=== PATIENT | male | born 1930 | race Caucasian/White ===

== ENCOUNTER 2019-02-05 20:44 | Inpatient (IN) | payer MEDICARE, BC ==
--- NOTE | 2019-02-05 20:55 | EDM.PDOC ---
ED HPI GENERAL MEDICAL PROBLEM - General Chief Complaint: Genitourinary Problem Stated Complaint: HEMATURIA Time Seen by Provider: 02/05/19 20:44 Source of Information: Reports: Patient History Limitations: Reports: No Limitations - History of Present Illness INITIAL COMMENTS - FREE TEXT/NARRATIVE: 88 YO WM presents to ER with urinary retention which began this am. Pt and his reports hematuria x 3 days. Pt was seen in clinic and started on antibiotics but hematuria continued throughout the day and patient reports he hasn't been able to void since 4pm today. Pt reports he is taking Plavix secondary to cardiac cath with 2 stents 6 weeks ago. Pt denies shortness of breath, dizziness or fatigue related to blood loss. Pt with history of diabetes but unsure of renal function status at this time. Duration: Day(s): (3) Location: Reports: Abdomen Quality: Reports: Pressure Severity: Mild Improves with: Reports: None Worsens with: Reports: None Associated Symptoms: Reports: No Other Symptoms - Related Data Allergies Allergy/AdvReac Type Severity Reaction Status Date / Time No Known Drug Allergies Allergy Other Verified 12/29/13 17:55 Home Meds: Home Meds Aspirin [Halfprin] 81 mg PO DAILY 11/29/13 [History] Fish Oil/[place]-3 Fatty Acids [Fish Oil] 1 cap PO DAILY 11/29/13 [History] Furosemide [Lasix] 20 mg PO DAILY 11/29/13 [History] Glucosamine HCl [Glucosamine] 1,500 mg PO DAILY 11/29/13 [History] Losartan/Hydrochlorothiazide [Losartan-HCTZ 50-12.5 MG] 50.125 mg PO DAILY 11/29 [History] Multivitamin with Minerals [One Daily 50 Plus] 1 tab PO DAILY 11/29/13 [History] Past Medical History - Past Health History Medical/Surgical History: Denies Medical/Surgical History Social & Family History - Living Situation & Occupation Living situation: Reports: Occupation: Retired ED ROS GENERAL - Review of Systems Review Of Systems: See Below Constitutional: Reports: No Symptoms HEENT: Reports: No Symptoms Respiratory: Reports: No Symptoms Cardiovascular: Reports: No Symptoms Endocrine: Reports: No Symptoms GI/Abdominal: Reports: No Symptoms : Reports: Hematuria, Urgency, Urinary Retention Musculoskeletal: Reports: No Symptoms Skin: Reports: No Symptoms Neurological: Reports: No Symptoms Psychiatric: Reports: No Symptoms Hematologic/Lymphatic: Reports: No Symptoms Immunologic: Reports: No Symptoms ED EXAM, RENAL/ - Physical Exam Exam: See Below Exam Limited By: No Limitations General Appearance: Alert, WD/WN, No Apparent Distress Head: Atraumatic, Normocephalic Neck: Normal Inspection, Supple, Non-Tender, Full Range of Motion Respiratory/Chest: No Respiratory Distress, Lungs Clear, Normal Breath Sounds, No Accessory Muscle Use, Chest Non-Tender Cardiovascular: Normal Peripheral Pulses, Regular Rate, Rhythm, No Edema, No Gallop, No JVD, No Murmur, No Rub GI/Abdominal: Normal Bowel Sounds, Soft, Non-Tender, No Organomegaly, No Distention, No Abnormal Bruit, No Mass Back Exam: Normal Inspection, Full Range of Motion, NT Extremities: Normal Inspection, Normal Range of Motion, Non-Tender, Normal Capillary Refill, No Pedal Edema Neurological: Alert, Oriented, CN II-XII Intact, Normal Cognition, Normal Reflexes, No Motor/Sensory Deficits Psychiatric: Normal Affect, Normal Mood Skin Exam: Warm, Dry, Intact, Normal Color, No Rash Lymphatic: No Adenopathy Course - Orders/Labs/Meds Orders: Active Orders 24 hr Category Date Time Status Insert Urinary Catheter [OM.PC] Q24H Care 02/05/19 21:00 Ordered Urinary Catheter Assessment [RC] ASDIRECTED Care 02/05/19 20:56 Active Labs: Laboratory Tests 02/05/19 02/05/19 02/05/19 Range/Units 21:27 21:30 21:30 WBC 3.98 L (5.00-10.00) 10^3/uL RBC 2.85 L (4.50-6.00) 10^6/uL Hgb 9.6 L (13.0-17.0) g/dL Hct 28.2 L (40.0-52.0) % MCV 98.9 H (82.0-92.0) fL MCH 33.7 H (27.0-31.0) pg MCHC 34.0 (32.0-36.0) g/dL RDW 13.3 (11.5-14.5) % Plt Count 148 L (150-400) 10^3/uL MPV 9.7 (7.4-10.4) fL Immature Gran % (Auto) 0.5 (0.0-5.0) % Neut % (Auto) 65.3 (50.0-70.0) % Lymph % (Auto) 18.1 L (20.0-40.0) % Gage % (Auto) 9.5 H (2.0-8.0) % Eos % (Auto) 5.8 H (1.0-3.0) % Baso % (Auto) 0.8 (0.0-1.0) % Immature Gran # (Auto) 0.02 (0.00-0.50) 10^3/uL Neut # (Auto) 2.60 (2.50-7.00) 10^3/uL Lymph # (Auto) 0.72 L (1.00-4.00) 10^3/uL Gage # (Auto) 0.38 (0.10-0.80) 10^3/uL Eos # (Auto) 0.23 (0.10-0.30) 10^3/uL Baso # (Auto) 0.03 (0.00-0.10) 10^3/uL Sodium 142 (136-145) mmol/L Potassium 4.7 (3.3-5.3) mmol/L Chloride 108 (98-115) mmol/L Carbon Dioxide 21.5 (21.0-32.0) mmol/L Anion Gap 17.2 H (5-15) mmol/L BUN 60 H* (6-25) mg/dL Creatinine 2.70 H (0.51-1.17) mg/dL Est Cr Clr Drug Dosing TNP Estimated GFR (MDRD) 22 mL/min Glucose 172 H (75 - 99) mg/dL Calcium 9.3 (8.7-10.3) mg/dL Specimen Type Urincath Urine Color Red H (YELLOW) Urine Appearance Turbid H (CLEAR) Urine pH 6.0 (5.0-9.0) Ur Specific [place] 1.025 (1.005-1.030) Urine Protein >=300 H (NEGATIVE) mg/dL Urine Glucose (UA) Negative (NEGATIVE) mg/dL Urine Ketones Negative (NEGATIVE) mg/dL Urine Occult Blood Large H (NEGATIVE) Urine Nitrite Negative (NEGATIVE) Urine Bilirubin Negative (NEGATIVE) Urine Urobilinogen 0.2 (0.2-1.0) E.U./dL Ur Leukocyte Esterase Negative (NEGATIVE) Urine RBC Packed (0-5) /HPF Urine WBC 0-5 (0-5) /HPF Ur Epithelial Cells Not seen /LPF Urine Bacteria Few (NONE TO FEW) /HPF Departure - Departure Time of Disposition: 22:10 Disposition: Admitted As Inpatient 66 Condition: Good Clinical Impression: Obstructive uropathy, Renal insufficiency Hematuria Qualifiers: Hematuria type: gross Qualified Code(s): R31.0 - Gross hematuria Anemia Qualifiers: Anemia type: unspecified type Qualified Code(s): D64.9 - Anemia, unspecified - Discharge Information Referrals: Lizett Brush, MANUFACTURING QUALITY MANAGER [Primary Care Provider] - Forms: ED Department Discharge - My Orders Last 24 Hours: My Active Orders 02/05/19 20:56 Urinary Catheter Assessment [RC] ASDIRECTED 02/05/19 21:00 Insert Urinary Catheter [OM.PC] Q24H - Assessment/Plan Last 24 Hours: My Active Orders 02/05/19 20:56 Urinary Catheter Assessment [RC] ASDIRECTED 02/05/19 21:00 Insert Urinary Catheter [OM.PC] Q24H Assessment:: 1. Hematuria- obstructive uropathy 2. renal insufficiency 3. Anemia Plan: 1. Admit to [facility] 2. continue bladder irrigation 3. NS @ 100cc/hr 4. repeat labs in am
[2019-02-05 21:58] LABS: ANION GAP 17.2 mmol/L (5-15); CHLORIDE,CL 108 mmol/L (98-115); SODIUM,NA 142 mmol/L (136-145)
[2019-02-05] MEDS: Sodium Chloride 0.9% 10 ML Syringe FLUSH PRN (23:10)
[2019-02-05] MEDS: Sodium Chloride 0.9% 1,000 ML IV SCH (23:12)
[2019-02-06 08:01] LABS: ANION GAP 18.1 mmol/L (5-15)
[2019-02-06] MEDS: Sodium Chloride 0.9% 1,000 ML IV SCH (09:11)
[2019-02-06] MEDS ORDERED: INSULIN DEGLUDEC 18 UNIT SQ SCH (10:15)
[2019-02-06] MEDS ORDERED: BILBERRY PO SCH (10:15)
[2019-02-06] MEDS: Aspirin 81 MG Tab.EC PO SCH (10:40)
[2019-02-06] MEDS ORDERED: Furosemide 40 MG Tab PO ONE (11:30)
[2019-02-06] MEDS: Metoprolol Succinate 50 MG Tab.ER PO SCH (11:33)
[2019-02-06] MEDS: Clopidogrel 75 MG Tab PO SCH (11:33)
[2019-02-06] MEDS: Calcitriol 0.25 MCG Cap PO SCH (11:33)
[2019-02-06] MEDS: Metoprolol Succinate 25 MG Tab.ER PO SCH (11:34)
[2019-02-06] MEDS: Lutein/Minerals/Vitamins A, C & E Tab PO SCH (11:34)
[2019-02-06] MEDS: Allopurinol 100 MG Tab PO SCH (11:35)
[2019-02-06] MEDS: Finasteride 5 MG Tab PO SCH (11:35)
[2019-02-06] MEDS ORDERED: Belladonna Alkaloids/Opium 16.2-60 MG Supp RECTAL PRN (11:52)
[2019-02-06] MEDS: atorvaSTATin 10 MG Tab PO SCH (20:15)
[2019-02-07] MEDS: Sodium Chloride 0.9% 1,000 ML IV SCH ×2 (02:32→22:22)
[2019-02-07] MEDS: Calcitriol 0.25 MCG Cap PO SCH (08:46)
[2019-02-07] MEDS: Clopidogrel 75 MG Tab PO SCH (08:46)
[2019-02-07] MEDS: Allopurinol 100 MG Tab PO SCH (08:47)
[2019-02-07] MEDS: Metoprolol Succinate 25 MG Tab.ER PO SCH (08:47)
[2019-02-07] MEDS: Lutein/Minerals/Vitamins A, C & E Tab PO SCH (08:47)
[2019-02-07] MEDS: Metoprolol Succinate 50 MG Tab.ER PO SCH (08:48)
[2019-02-07] MEDS: Finasteride 5 MG Tab PO SCH (08:48)
[2019-02-07] MEDS: INSULIN DEGLUDEC 200 UNIT/ML SUBCUT SCH (08:57)
[2019-02-07] MEDS: Furosemide 20 MG Tab PO SCH (09:01)
[2019-02-07] MEDS: Sodium Chloride 0.9% 10 ML Syringe FLUSH PRN (09:02)
--- NOTE | 2019-02-07 09:08 | HP ---
HISTORY OF PRESENT ILLNESS: This is an 88-year-old patient who had an open heart surgery of a CABG back [address] Yasmeen Bustillo for CABG x3. 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 Recently, he had seen Dr. Geiger and had 3 cardiac stents placed to his heart back on 01/05. The patient was placed on Plavix and a baby aspirin at that time. The patient also does have a history of hematuria. He had seen Dr. Abdulkadir Henry in Urology back this past March. At that time, the patient was started on finasteride 5 mg daily, which stopped his hematuria. Recently, the patient has been having hematuria since he has been put on the blood thinners. He was seen in the clinic. Cardiology was notified. Cardiology said that we may stop the aspirin if the bleeding gets to be uncontrollable, but do not stop the Plavix. Urology was also consulted at that time. Over the weekend, the patient was having gross hematuria. Finally, he got to the point where he is getting clots and he could not urinate, it became very painful with bladder pressure and he came to the emergency room. At that time, a 3-way 22-[place] catheter was inserted with CBI. PAST MEDICAL HISTORY: The patient does have a past medical history of hematuria, coronary artery disease with history of CABG x3 five years ago, hypertension, diabetes mellitus type 2, hyperlipidemia, and gout. PAST SURGICAL HISTORY: He had the open heart surgery along with cardiac stent. MEDICATIONS: He was taking at home, a multivitamin, Tresiba 18 units daily, aspirin was on hold. He does take allopurinol 100 mg daily, Plavix 75 mg once daily, Toprol-XL 75 mg daily, finasteride 5 mg daily, atorvastatin 10 mg daily, Lasix 60 mg every other day, and calcitriol 0.5 mg daily. ALLERGIES: The patient has no known drug allergies. SOCIAL/PERSONAL HISTORY: The patient lives in [place] with his . He is retired. Denies any alcohol or tobacco use. REVIEW OF SYSTEMS: CONSTITUTIONAL: No weight loss. No fever. No chills. No night sweats. Appetite is good. No fatigue. EYES: No recent visual changes. ENT: No sinus congestion or hoarseness. CARDIOVASCULAR: No chest pain or palpitations. RESPIRATORY: No cough. No shortness of breath. GI: No vomiting, diarrhea or melena. : The Metcalf catheter is irritating his penis. MUSCULOSKELETAL: No new bone pain or joint swelling. INTEGUMENTARY: No rash or pruritus. NEUROLOGIC/PSYCHIATRIC: No recent headache or focal weakness. No depressive symptoms. ENDOCRINE: No heat or cold intolerances or polydipsia. HEMATOLOGIC/LYMPHATIC: No excessive bruising or lymph node swelling. ALLERGIC/IMMUNOLOGIC: No hives or recurrent infections. PHYSICAL EXAMINATION: GENERAL: This is an elderly white male in no acute distress. VITAL SIGNS: Today, he is 207 pounds. Temperature is 97.0, pulse is 70, blood pressure is 159/81, respiratory rate is 20, oxygen saturation on room air is 96%. HEENT: Head is normocephalic. EOMs are intact. Pupils are equal, round, and reactive to light and accommodation. Bilateral tympanic membranes are intact. Nose is clear. No pharyngeal erythema noted. LUNGS: Sounds are clear throughout lung garg. Slightly diminished at bilateral bases. NECK: Supple. No JVD. Trachea midline. CARDIAC: Heart tones have a loud murmur, but it is regular rate and rhythm. ABDOMEN: Soft, nontender, nondistended. Bowel sounds are present x4. EXTREMITIES: No joint effusion noted. Full range of motion. NEUROLOGIC: Grossly intact. DIAGNOSTIC: The patient's lab work that was obtained. A CBC showed a white count normal range at 5.8, hemoglobin stable at 9.6, platelet count is within normal range at 156. Chemistry panel shows a BUN elevated at 55, creatinine is 2.59, GFR is 24. These are the lab work from today. The patient's lab work that was obtained in the ER did show a BUN elevated at 60, creatinine at 2.7. GFR is 22 at that time. IMPRESSION/PLAN: 1. Gross hematuria secondary to anticoagulation therapy. Plan: I did talk with Dr. Martinez on the phone, Urology at [facility] in [place]. He states that most of the time that these will stop bleeding on their own. He says usually going in for cystoscopy is not recommended unless he gets to be very uncontrolled. He says continue with the CBI. He says to hand irrigate the catheter, which I did with 1-2 L until there was no more clots. We do not have the ultrasound capabilities here for bladder ultrasound. We did bladder scan, the bladder after irrigation and it showed 0 mL present. We are going to continue to hold the aspirin at this time. We will continue with the Plavix 75 mg daily. We will also continue with finasteride 5 mg daily. It does seem like it is starting to clear up. We will continue to monitor. We will do a CBC in the morning. 2. Coronary artery disease with history of CABG along with recent stent placement on 01/[address] Geiger, stent placement x3. We are going to continue the Plavix 75 mg daily. The patient does not have any chest pain at this time. Note: Denies any shortness of breath, but we are holding the aspirin. 3. History of hypertension. Plan: We will continue with the Lasix 60 mg every other day along with the Toprol-XL 75 mg daily. The patient's blood pressure slightly elevated today. We will have to monitor. He did not get his medications yet today, so we will give him his medications and monitor his blood pressure from there. 4. History of diabetes mellitus type 2. Plan: We will continue with Tresiba 18 units daily and we will check his blood sugar twice daily. 5. History of hyperlipidemia. Plan: Continue with atorvastatin 10 mg daily. 6. History of gout. Plan: Continue with allopurinol 100 mg daily. OVERALL PLAN: We will continue with CBI. Hopefully, the bleeding slows down and stops, and at that time, we may consider sending the patient home. We will recheck lab work in the morning. /[id number]/MODL MTDD
--- NOTE | 2019-02-07 11:57 | PN ---
02/07/2019 PATIENT NAME: MARC WATTS SUBJECTIVE: This is an 88-year-old gentleman who lives at home with his who has a cardiac history of having CABG [address] Yasmeen Bustillo. The patient recently went in to get a heart valve repaired by Dr. Geiger and at that time, he ended up getting stents placed to his heart x3. This was back on 01/05/2019. The patient still has a malfunctioning cardiac valve that he needs repaired. The patient was placed on Plavix and aspirin after his stents were placed. The patient had a history of hematuria last March. He was seen by Urology for hematuria. He was placed on finasteride and at that time, the hematuria had stopped. After the patient went home with the Plavix and aspirin, he started getting hematuria about a week ago. Cardiology was consulted and he stated that if the bleeding gets to be more, then we can stop the aspirin, but do not continue the Plavix. The patient was at home over the weekend. He is unable to void because he is having such big blood clots in his urine. He was admitted to the hospital after being seen in the ER. He had a 22-[place] 3-way catheter inserted. I had spoke with Dr. Martinez in Urology and he states that this will mostly stop bleeding on its own. There is no intervention need be done at this time. CBI with irrigation for clots would be the treatment. Now today, the patient says he feels fine. He says he has no concerns. He is sitting and eating breakfast, watching TV. He has no discomfort; the only discomfort he says is when the Metcalf catheter pulled sometimes with transfers. OBJECTIVE: VITAL SIGNS: Today, temperature is 97.8, pulse is 71, blood pressure is 117/64, oxygen saturations are 95% on room air, the patient's respiratory rate is 20. GENERAL: This is an elderly white male in no acute distress. HEART: Tones are distant, but he does have a definite murmur on exam. LUNGS: Sounds are clear in upper lobes, diminished at the lower bases a little bit. ABDOMEN: Soft, nontender, nondistended. Bowel sounds present x4. : The patient's urine in the Metcalf bag is blood tinged, but I do not see any clots. CBI is infusing. EXTREMITIES: No pedal edema noted on exam. LABORATORY DATA: The patient's lab work today CBC shows white count within normal range of 5.6, hemoglobin is low at 8.9. Chemistry panel is unremarkable except for the patient's kidney function continues to be low. BUN is elevated at 53, creatinine is elevated at 2.7. His GFR is 22. This is around the patient's baseline. This is where he has been in stage 4 chronic kidney disease. The patient's albumin is low today at 2.63. IMPRESSION AND PLAN: 1. Gross hematuria secondary to anticoagulation therapy. Plan: After talking with Dr. Martinez yesterday, he states that they were doing pretty much everything we would be doing up there. He says we do not need to transfer him at this time. There is no intervention needed unless the patient was bleeding out very severely. Continue with CBI and irrigate for clots. This is what he recommended at this time, most likely he will stop bleeding even on the Plavix. Today, I do not see any blood clots in the bag. It seems to be a lot laboratory technician in color today than yesterday. The patient's hemoglobin seems to be dropping slightly, yesterday was 9.6, today it is 8.9. We will recheck a CBC in the morning. We will continue with Plavix and continue to hold aspirin at this time. 2. History of coronary artery disease with history of coronary artery bypass grafting 5 years ago with recent stent placement by Dr. Geiger back on 01/05/2019. Stent placement was x3. We will continue with Plavix 75 mg a day. We will continue to hold the aspirin until the bleeding is subsided. The patient denies any chest pain, shortness of breath, or heart palpitations. 3. History of hypertension. Plan: Blood pressure seems to be well controlled. We will continue with his Lasix 60 mg every day along with Toprol-XL 75 mg daily. 4. History of diabetes mellitus type 2. Plan: We will continue with Tresiba 18 units daily. We will continue to check his blood sugar twice daily. Glucose on his panel this morning was 107, yesterday before supper his blood sugar was 166. They seem to be well controlled. 5. History of hyperlipidemia. Plan: Continue with atorvastatin 10 mg daily. 6. History of gout. Plan: Continue with allopurinol 100 mg daily. Overall plan: we will continue with CBI. Hopefully, the bleeding slows down and stops. At that time, we can maybe send the patient home. We will check his lab work in the morning, seems to be improving. I do not see any further clots. The blood seems to be becoming less. /[id number]/MODL MTDD
[2019-02-07] MEDS: atorvaSTATin 10 MG Tab PO SCH (20:23)
[2019-02-08 07:51] LABS: ANION GAP 18.5 mmol/L (5-15)
[2019-02-08] MEDS: Finasteride 5 MG Tab PO SCH (08:27)
[2019-02-08] MEDS: Calcitriol 0.25 MCG Cap PO SCH (08:28)
[2019-02-08] MEDS: Allopurinol 100 MG Tab PO SCH (08:28)
[2019-02-08] MEDS: Clopidogrel 75 MG Tab PO SCH (08:28)
[2019-02-08] MEDS: Lutein/Minerals/Vitamins A, C & E Tab PO SCH (08:29)
[2019-02-08] MEDS: Furosemide 40 MG Tab PO SCH (08:30)
[2019-02-08] MEDS: Metoprolol Succinate 50 MG Tab.ER PO SCH (08:30)
[2019-02-08] MEDS: Metoprolol Succinate 25 MG Tab.ER PO SCH (08:34)
[2019-02-08] MEDS: INSULIN DEGLUDEC 200 UNIT/ML SUBCUT SCH (08:37)
--- NOTE | 2019-02-08 12:23 | PN ---
02/08/2019 PATIENT NAME: MARC WATTS CHIEF COMPLAINT: Ongoing hematuria. BRIEF HISTORY: This 88-year-old gentleman is in the hospital, acute stay due to ongoing hematuria. He is status post stent placement, was placed on aspirin and Plavix. Also on finasteride. He came to the ED due to obstructive uropathy. He was subsequently admitted due to hematuria. He has been in the hospital for continued bladder irrigation. Over the weekend, he did have CBI ongoing. A lot clots were removed by the weekend provider. He had been having clear urine. However, this morning, he does have some hematuria, however, no clots, got stable hemoglobin 8.9. No dizziness. No chest pain, slightly pallor. His aspirin was removed. Today is day #3. After removed, continues with Plavix. On-call provider had discussed case with Urology. Recommend a CBI and possible transfusion if need be and if he become hemodynamically stable. SUBJECTIVE: The patient is sitting in a chair. Alert and oriented. No chest pain, shortness of breath. PHYSICAL EXAMINATION: VITAL SIGNS: Stable. Blood pressure 114/63, afebrile, O2 saturations 96%. He has no other complaints other than hematuria. HEART: Does have a murmur 3/6. PULMONARY: Clear. LUNGS: No wheezes or rales or rhonchi. INTEGUMENTARY: Pallor. ABDOMEN: Soft, nontender. Good bowel tones. : Ongoing Metcalf. Blood tinged urine. Slightly tea-colored today. No clots. CBI is ongoing infusion. Does have IV running at 50 mL an hour. EXTREMITIES: No pedal edema. LABORATORY DATA: Hemoglobin 8.9, same as yesterday. White blood cells 5.79. Neutrophilia trending down at 94%. BUN 52, creatinine 2.77. Potassium and sodium normal, albumin 2.62. IMPRESSION/PLAN: 1. Hematuria secondary to dual anti-platelet continue. Continue CBI today. We will see if he develops clots. Monitor for any hemodynamically instability. Monitor hemoglobin in the a.m. We will be in close contact with Urology. Continue ongoing Plavix. 2. Coronary artery disease with bypass 5 years ago, recent status post stent on 01/05/2019. Aspirin is being held. Plavix 75 mg a day. 3. History of hypertension. Blood pressure seems good. Stable. Adequate MAPs. Continue with Lasix and Toprol. 4. T2 DM control with Tresiba 18 units. 5. Hyperlipidemia, on statin therapy. 6. Gout. Continue with allopurinol. DISPOSITION/OVERALL PLAN: Continue inpatient stay. Continue CBI today. Monitor for clots. Monitor for hemodynamic instability. We will see how he does with this. Will be in close contact with Urology. /[id number]/MODL
[2019-02-08] MEDS ORDERED: Melatonin 3 MG Tab PO PRN (20:13)
[2019-02-08] MEDS: atorvaSTATin 10 MG Tab PO SCH (20:18)
[2019-02-08] MEDS ORDERED: Acetaminophen 325 MG Tab PO PRN (20:20)
[2019-02-09 07:50] LABS: ANION GAP 19.5 mmol/L (5-15)
[2019-02-09] MEDS: Metoprolol Succinate 50 MG Tab.ER PO SCH (08:31)
[2019-02-09] MEDS: Calcitriol 0.25 MCG Cap PO SCH (08:31)
[2019-02-09] MEDS: Allopurinol 100 MG Tab PO SCH (08:31)
[2019-02-09] MEDS: Metoprolol Succinate 25 MG Tab.ER PO SCH (08:31)
[2019-02-09] MEDS: INSULIN DEGLUDEC 200 UNIT/ML SUBCUT SCH (08:32)
[2019-02-09] MEDS: Clopidogrel 75 MG Tab PO SCH (08:32)
[2019-02-09] MEDS: Finasteride 5 MG Tab PO SCH (08:32)
[2019-02-09] MEDS: Lutein/Minerals/Vitamins A, C & E Tab PO SCH (08:32)
[2019-02-09] MEDS: Furosemide 20 MG Tab PO SCH (08:34)
--- NOTE | 2019-02-09 15:38 | PN ---
02/09/2019 PATIENT NAME: MARC WATTS CHIEF COMPLAINT: Ongoing, however, improving hematuria. DICTATION ENDS HERE /[id number]/MODL
--- NOTE | 2019-02-09 16:59 | PN ---
02/09/2019 PATIENT NAME: MARC WATTS CHIEF COMPLAINT: Ongoing but improving hematuria. No overnight calls. However, this morning upon arrival to the hospital, I did get notified by the nurses with acute urinary obstruction. He did have a CBI that was running overnight and the past couple of days, and then the nurses were concerned that he was having no urinary output. I did ask for the 3-way CBI to be removed and a 22-gauge placed. However, by the time I got to the hospital, the CBI was draining appropriately intake and output. HISTORY: 88-year-old gentleman, recently had status post stents were placed. He was on aspirin and Plavix, dual anti-platelet therapy. He did have some active bleeding hematuria with quite a bit of blood clots, unable to urinate. A 3-way catheter was placed in the ED with CBI ongoing. He has been having periodic hematuria versus clearing. Hemoglobin has been stable at 8.9. His Plavix continues due to stents, however, that has been held. Today is day 4 of aspirin being held. SUBJECTIVE: Denies chest pains, dizziness, or any nausea, vomiting, or diarrhea. PHYSICAL EXAMINATION: VITAL SIGNS: Blood pressure 120/69, heart rate 62, temperature 97.3, O2 sats 97%, respiratory rate 16. LUNGS: Clear to auscultation. CV: Slightly irregular. ABDOMEN: Soft with good GI tones. EXTREMITIES: Slightly pallor, however, stable hemoglobin. LABORATORY DATA: This morning, hemoglobin 8.7, BUN is 60, creatinine 3.09 with a GFR of 20; this is slightly elevated than yesterday. Potassium is 4.5, sodium 143. Bilirubin, AST, and ALT normal. IMPRESSION AND PLAN: 1. Hematuria secondary to hkrd-[id number]-[id number] therapy. His aspirin has been stopped. He does have an increasing favorable platelet count. We will discontinue Metcalf catheter this morning. Increase his IV fluids. 2. Coronary artery disease with bypass 5 years ago, recent stent placed on 01/05/2019. Again, aspirin is being held. Plavix, we will continue at 75 mg a day. 3. History of hypertension. Blood pressure is stable. Adequate mean arterial pressures. He is on Toprol at this time. 4. Type 2 diabetes mellitus. He is on Tresiba. He does have a blood sugar this morning of 72 without symptoms. We will decrease his Tresiba to 16 units. 5. Hyperlipidemia. He is on statin therapy. 6. Gout. Continue with renal dose allopurinol. DISPOSITION/OVERALL PLAN: I thought at one point the patient could likely be discharged this evening, however, might be best to keep him one more day in the hospital due to recent discontinuation of CBI and catheter. Then, increase his IV fluids, monitor for any fluid overload, monitor for creatinine improvement. Hopefully, he can get near his baseline in the morning, and we will monitor for any obstructive uropathy. Please note that the hospital's bladder scan is broken, so we may have to call an ultrasound if we have any symptoms of urinary obstruction. We will be close monitoring him throughout the night. Likely anticipate discharge tomorrow. Monitor for hemoglobin in the morning. /[id number]/MODL
[2019-02-09] MEDS: Sodium Chloride 0.9% 1,000 ML IV SCH (20:04)
[2019-02-09] MEDS: atorvaSTATin 10 MG Tab PO SCH (20:05)
[2019-02-10] MEDS: Sodium Chloride 0.9% 1,000 ML IV SCH (04:12)
[2019-02-10 07:46] LABS: ANION GAP 17.2 mmol/L (5-15)
[2019-02-10] MEDS: Lutein/Minerals/Vitamins A, C & E Tab PO SCH (08:56)
[2019-02-10] MEDS: Finasteride 5 MG Tab PO SCH (08:56)
[2019-02-10] MEDS: Calcitriol 0.25 MCG Cap PO SCH (08:56)
[2019-02-10] MEDS: Clopidogrel 75 MG Tab PO SCH (08:56)
[2019-02-10] MEDS: Metoprolol Succinate 25 MG Tab.ER PO SCH (08:57)
[2019-02-10] MEDS: Metoprolol Succinate 50 MG Tab.ER PO SCH (08:57)
[2019-02-10] MEDS: Allopurinol 100 MG Tab PO SCH (08:58)
[2019-02-10] MEDS ORDERED: TRESIBA 200 UNIT/ML SUBCUT SCH ×2 (09:00→09:50)
[2019-02-10] MEDS: Furosemide 40 MG Tab PO SCH (09:02)
[2019-02-10] MEDS: Aspirin 81 MG Tab.EC PO SCH (09:44)
== END 2019-02-10 11:25 | disposition home or self-care (01) | DRG 696 ==
LOC: KA.ED 20:44 → KA.MS 22:13 → UNDOADMIN 22:15 → KA.MS 22:15
PROVIDERS: ADMIT Physician Assistant Medical; ATTEND Physician Assistant
PROC: 0T9B70Z Drainage of Bladder with Drainage Device, Via Natural or Artificial Opening (ICD-10-PCS; principal; 2019-02-05)
DX: R31.0 Gross hematuria (principal); D68.32 Hemorrhagic disorder due to extrinsic circulating anticoagulants; D64.9 Anemia, unspecified; T45.515A Adverse effect of anticoagulants, initial encounter; N13.9 Obstructive and reflux uropathy, unspecified; I25.10 Atherosclerotic heart disease of native coronary artery without angina pectoris; I10 Essential (primary) hypertension; E11.9 Type 2 diabetes mellitus without complications; Z79.02 Long term (current) use of antithrombotics/antiplatelets; E78.5 Hyperlipidemia, unspecified; M10.9 Gout, unspecified; Z95.1 Presence of aortocoronary bypass graft; Z95.5 Presence of coronary angioplasty implant and graft; Z79.82 Long term (current) use of aspirin; Z79.899 Other long term (current) drug therapy
CPT/HCPCS: 36415; 51702; 51703; 80048; 80053; 81001; 82962; 85018; 85025; 85027; 99284; 99284-25; A9270-GY; J7030

== ENCOUNTER 2020-01-24 13:48 | Emergency (ER) | payer MEDICARE, BC ==
--- NOTE | 2020-01-24 14:28 | EDM.PDOC ---
ED HPI GENERAL MEDICAL PROBLEM - General Chief Complaint: Genitourinary Problem Stated Complaint: URINARY RETENTION Time Seen by Provider: 01/24/20 14:20 Source of Information: Reports: Patient, Family History Limitations: Reports: No Limitations - History of Present Illness INITIAL COMMENTS - FREE TEXT/NARRATIVE: 89 YO WM PRESENTS TO ER COMPLAINING OF HEMATURIA YESTERDAY AND INABILITY TO VOID TODAY PROMPTING ER EVALUATION. PT REPORTS PASSING A BLOOD CLOT IN HIS URINE THIS AM BUT SINCE 8AM HE HAS BEEN UNABLE TO VOID ANY URINE. PT REPORTS SIMILAR HISTORY 1 YEAR AGO AT WHICH TIME HE WAS ADMITTED TO THE HOSPITAL DUE TO RENAL INSUFFICIENCY AND UTI. PT DENIES FEVER/CHILLS, NO N/V. PT REPORTS MILD LOWER ABDOMINAL/SUPRAPUBIC PAIN BUT DOES NOT APPEAR TO BE IN ANY DISTRESS. Onset: Today Onset Date: 01/24/20 Onset Time: 08:00 Location: Reports: Abdomen Quality: Reports: Ache Severity: Moderate Improves with: Reports: None Worsens with: Reports: None Associated Symptoms: Reports: No Other Symptoms. Denies: Fever/Chills, Nausea/Vomiting, Weakness - Related Data Allergies Allergy/AdvReac Type Severity Reaction Status Date / Time No Known Drug Allergies Allergy Other Verified 01/24/20 14:29 Home Meds: Home Meds Bilberry 100 mg PO DAILY 02/06/19 [History] Clopidogrel [Plavix] 75 mg PO DAILY 02/06/19 [History] Finasteride [Proscar] 5 mg PO DAILY 02/06/19 [History] Metoprolol Succinate [Toprol XL 50mg] 50 mg PO DAILY 02/06/19 [History] Metoprolol Succinate [Toprol XL] 25 mg PO DAILY 02/06/19 [History] Multivit with Minerals/Lutein [Vision Plus Lutein Vitamin] 1 each PO DAILY 02/06/19 [History] allopurinoL [Zyloprim] 100 mg PO DAILY 02/06/19 [History] atorvaSTATin [Lipitor] 10 mg PO Q48H 02/06/19 [History] calcitrioL [Rocaltrol] 0.5 mcg PO DAILY 02/06/19 [History] Bumetanide [Bumex] 1 mg PO DAILY 01/24/20 [History] Insulin Degludec [Tresiba] 20 unit SQ DAILY 01/24/20 [History] Lancets [Microlet] 1 each MC DAILY 01/24/20 [History] Levothyroxine 25 mcg PO ACBREAKFAST 01/24/20 [History] Past Medical History - Past Health History Medical/Surgical History: Denies Medical/Surgical History HEENT History: Reports: Hard of Hearing, Impaired Vision, Macular Degeneration Cardiovascular History: Reports: Bypass, Stents Respiratory History: Reports: None Gastrointestinal History: Reports: None Genitourinary History: Reports: Chronic Renal Insuffiency Musculoskeletal History: Reports: Arthritis, Gout Neurological History: Reports: None Psychiatric History: Reports: None Endocrine/Metabolic History: Reports: Diabetes, Type II, Obesity/BMI 30+ Hematologic History: Reports: Anemia, Anticoagulation Therapy Immunologic History: Reports: None Oncologic (Cancer) History: Reports: Malignant Melanoma Dermatologic History: Reports: Melanoma - Infectious Disease History Infectious Disease History: Reports: None - Past Surgical History Head Surgeries/Procedures: Reports: None Cardiovascular Surgical History: Reports: Coronary Artery Bypass, Other (See Below) Other Cardiovascular Surgeries/Procedures: 3 stents done Jan 05, 2019 in [place] [facility] Surgical History: Reports: Colonoscopy Male Surgical History: Reports: None Endocrine Surgical History: Reports: None Neurological Surgical History: Reports: Lumbar Spine Musculoskeletal Surgical History: Reports: Knee Replacement, Shoulder Surgery, Other (See Below) Other Musculoskeletal Surgeries/Procedures:: Back surgery (bone grafting from right leg) in 1949 Social & Family History - Family History Family Medical History: Noncontributory - Caffeine Use Caffeine Use: Reports: Coffee Other Caffeine Use: very little - Living Situation & Occupation Living situation: Reports: Occupation: Retired ED ROS GENERAL - Review of Systems Review Of Systems: See Below Constitutional: Reports: No Symptoms HEENT: Reports: No Symptoms Respiratory: Reports: No Symptoms Cardiovascular: Reports: No Symptoms Endocrine: Reports: No Symptoms GI/Abdominal: Reports: Abdominal Pain : Reports: Hematuria, Urinary Retention Musculoskeletal: Reports: No Symptoms Skin: Reports: No Symptoms Neurological: Reports: No Symptoms Psychiatric: Reports: No Symptoms Hematologic/Lymphatic: Reports: No Symptoms Immunologic: Reports: No Symptoms ED EXAM, RENAL/ - Physical Exam Exam: See Below Exam Limited By: No Limitations General Appearance: Alert, WD/WN, No Apparent Distress Head: Atraumatic, Normocephalic Neck: Normal Inspection, Supple, Non-Tender, Full Range of Motion Respiratory/Chest: No Respiratory Distress, Lungs Clear, Normal Breath Sounds, No Accessory Muscle Use, Chest Non-Tender Cardiovascular: Normal Peripheral Pulses, Regular Rate, Rhythm, No Edema, No Gallop, No JVD, No Murmur, No Rub GI/Abdominal: Normal Bowel Sounds, Soft, Non-Tender, No Organomegaly, No Distention, No Abnormal Bruit, No Mass (Male) Exam: Normal Inspection, Circumcised Back Exam: Normal Inspection, Full Range of Motion, NT Extremities: Normal Inspection, Normal Range of Motion, Non-Tender, Normal Capillary Refill, No Pedal Edema Neurological: Alert, Oriented, CN II-XII Intact, Normal Cognition, Normal Gait, Normal Reflexes, No Motor/Sensory Deficits Psychiatric: Normal Affect, Normal Mood Skin Exam: Warm, Dry, Intact, Normal Color, No Rash Lymphatic: No Adenopathy Course - Vital Signs Last Recorded V/S: Last Vital Signs Temp 36.9 C 01/24/20 14:29 Pulse 79 01/24/20 14:29 Resp 16 01/24/20 14:29 BP 155/80 H 01/24/20 14:29 Pulse Ox 97 01/24/20 14:29 - Orders/Labs/Meds Orders: Active Orders 24 hr Category Date Time Status Insert Urinary Catheter [OM.PC] Q24H Care 01/24/20 14:30 Ordered Urinary Catheter Assessment [RC] ASDIRECTED Care 01/24/20 14:26 Active CORONAVIRUS COVID-19 RAPID [MOLEC] Stat Lab 01/24/20 15:35 Ordered UA W/MICROSCOPIC [URIN] Stat Lab 01/24/20 15:15 Results Labs: Laboratory Tests 01/24/20 01/24/20 01/24/20 Range/Units 14:45 14:45 15:15 WBC 4.49 L (5.00-10.00) 10^3/uL RBC 3.25 L (4.50-6.00) 10^6/uL Hgb 10.4 L D (13.0-17.0) g/dL Hct 31.3 L (40.0-52.0) % MCV 96.3 H (82.0-92.0) fL MCH 32.0 H (27.0-31.0) pg MCHC 33.2 (32.0-36.0) g/dL RDW 13.7 (11.5-14.5) % Plt Count 114 L (150-400) 10^3/uL MPV 10.4 (7.4-10.4) fL Immature Gran % (Auto) 0.2 (0.0-5.0) % Neut % (Auto) 69.5 (50.0-70.0) % Lymph % (Auto) 19.2 L (20.0-40.0) % [place] % (Auto) 7.1 (2.0-8.0) % Eos % (Auto) 3.3 H (1.0-3.0) % Baso % (Auto) 0.7 (0.0-1.0) % Neut # (Auto) 3.12 (2.50-7.00) 10^3/uL Lymph # (Auto) 0.86 L (1.00-4.00) 10^3/uL [place] # (Auto) 0.32 (0.10-0.80) 10^3/uL Eos # (Auto) 0.15 (0.10-0.30) 10^3/uL Baso # (Auto) 0.03 (0.00-0.10) 10^3/uL Immature Gran # (Auto) 0.01 (0.00-0.50) 10^3/uL Sodium 141 (136-145) mmol/L Potassium 4.7 (3.3-5.3) mmol/L Chloride 108 (98-115) mmol/L Carbon Dioxide 18.6 L (21.0-32.0) mmol/L Anion Gap 19.1 H (5-15) mmol/L BUN 83 H* (6-25) mg/dL Creatinine 3.26 H (0.51-1.17) mg/dL Est Cr Clr Drug Dosing 14.90 mL/min Estimated GFR (MDRD) 18 mL/min Glucose 208 H (75 - 99) mg/dL Calcium 8.8 (8.7-10.3) mg/dL Urine Color Red H (YELLOW) Urine Appearance Cloudy H (CLEAR) Urine pH 5.5 (5.0-9.0) Ur Specific [place] 1.015 (1.005-1.030) Urine Protein >=300 H (NEGATIVE) mg/dL Urine Glucose (UA) 100 H (NEGATIVE) mg/dL Urine Ketones 15 H (NEGATIVE) mg/dL Urine Occult Blood Large H (NEGATIVE) Urine Nitrite Positive H (NEGATIVE) Urine Bilirubin Large H (NEGATIVE) Urine Urobilinogen 4.0 H (0.2-1.0) E.U./dL Ur Leukocyte Esterase Large H (NEGATIVE) Meds: Medications Discontinued Medications Generic Name Dose Route Start Last Admin Trade Name Freq PRN Reason Stop Dose Admin Ceftriaxone Sodium 1 gm 01/24/20 15:28 Rocephin IM 01/24/20 15:29 ONETIME ONE Departure - Departure Time of Disposition: 15:46 Disposition: Admitted As Inpatient 67 Condition: Fair Clinical Impression: UTI, Urinary tract infectious disease, Renal insufficiency, Retention of urine Hematuria Qualifiers: Hematuria type: gross Qualified Code(s): R31.0 - Gross hematuria - Discharge Information Referrals: Jana Brush NP [Nurse Practitioner] - Forms: ED Department Discharge Sepsis Event Note (ED) - Focused Exam Vital Signs: Vital Signs Temp Pulse Resp BP Pulse Ox 01/24/20 14:29 36.9 C 79 16 155/80 H 97 - My Orders Last 24 Hours: My Active Orders 01/24/20 14:26 Urinary Catheter Assessment [RC] ASDIRECTED 01/24/20 14:30 Insert Urinary Catheter [OM.PC] Q24H 01/24/20 15:15 UA W/MICROSCOPIC [URIN] Stat 01/24/20 15:35 CORONAVIRUS COVID-19 RAPID [MOLEC] Stat - Assessment/Plan Last 24 Hours: My Active Orders 01/24/20 14:26 Urinary Catheter Assessment [RC] ASDIRECTED 01/24/20 14:30 Insert Urinary Catheter [OM.PC] Q24H 01/24/20 15:15 UA W/MICROSCOPIC [URIN] Stat 01/24/20 15:35 CORONAVIRUS COVID-19 RAPID [MOLEC] Stat Assessment:: 1. HEMATURIA WITH URINARY RETENTION 2. UTI 3. ACUTE ON CHRONIC RENAL INSUFFICIENCY Plan: 1. ADMIT TO MEDICINE- DR ROSALIA HERNANDEZ 2. ORDERS GIVEN PER DR LINDSEY 3. IVF NS @125CC/HR 4. CONTINUE MANUAL BLADDER IRRIGATION UNTIL CLEAR 5. REPEAT CBC/BMP IN AM 6. ROCEPHIN 1G IV QD 7. AWAIT URINE CULTURES
[2020-01-24 15:16] LABS: ANION GAP 19.1 mmol/L (5-15)
[2020-01-24] MEDS ORDERED: cefTRIAXone 1 GM Vial IM ONE (15:28)
[2020-01-24] MEDS ORDERED: cefTRIAXone 1 GM Vial IV ONE (16:00)
[2020-01-24] MEDS ORDERED: Sodium Chloride 0.9% 1,000 ML IV SCH (17:30)
== END 2020-01-24 18:20 ==
LOC: KA.ED 14:23 → UNDOADMIN 15:47 → KA.MS 15:47 → KA.ED 18:20
DX: N39.0 Urinary tract infection, site not specified (principal); R31.0 Gross hematuria; R33.9 Retention of urine, unspecified; E11.22 Type 2 diabetes mellitus with diabetic chronic kidney disease; N18.9 Chronic kidney disease, unspecified; E66.9 Obesity, unspecified; M10.9 Gout, unspecified; Z95.5 Presence of coronary angioplasty implant and graft; Z79.02 Long term (current) use of antithrombotics/antiplatelets; Z79.4 Long term (current) use of insulin; Z79.899 Other long term (current) drug therapy; Z68.31 Body mass index [BMI] 31.0-31.9, adult
CPT/HCPCS: 36415; 51702; 80048; 81001; 85025; 96361; 96374; 99285; J0696; J7030; U0002

== ENCOUNTER 2020-05-25 12:37 | Emergency (ER) | payer MEDICARE, BC ==
[2020-05-25] MEDS ORDERED: Sodium Chloride 0.9% 10 ML Syringe FLUSH PRN (12:40)
--- NOTE | 2020-05-25 13:09 | EDM.PDOC ---
ED HPI GENERAL MEDICAL PROBLEM - General Chief Complaint: General Stated Complaint: HEMATURIA Time Seen by Provider: 05/25/20 12:37 Source of Information: Reports: Patient History Limitations: Reports: No Limitations - History of Present Illness INITIAL COMMENTS - FREE TEXT/NARRATIVE: 89 YO WM PRESENTS TO ER BY PRIVATE CAR DUE TO WORSENING RENAL FUNCTION AND EPISODE OF HEMATURIA THIS AM. PT REPORTS HISTORY OF INOPERABLE RENAL MASS WITH RENAL INSUFFICIENCY WHICH ACCORDING TO HIS PCP, JEANNINE BRUSH HAS WORSENED RECENTLY. PT WAS SEEN IN CLINIC YESTERDAY FOR RASH AND HAD EVALUATION FOR UREMIA. CR- WENT FROM BASELINE OF 3.0-4.0 WITH A GFR OF 14. PT DENIES DYSURIA, URINARY FREQUENCY OR URGENCY, MAKING URINE WITHOUT DIFFICULTY BUT TODAY NOTICED 1 EPISODE OF HEMATURIA PROMPTING ER EVALUATION. PT DENIES PASSING ANY CLOTS IN URINE AND STATES HE HAS MACULAR DEGENERATION AND STATES HIS URINE WAS DARKER THAN NORMAL TODAY AND HE BELIEVES IT WAS BLOOD IN HIS URINE. PT DENIES SHORTNESS OF BREATH, PERIPHERAL EDEMA OR WORSENING FATIGUE OR WEAKNESS. Onset: Today Location: Reports: Generalized Severity: Mild Improves with: Reports: None Worsens with: Reports: None Associated Symptoms: Reports: No Other Symptoms, Rash. Denies: Confusion, Fever/Chills, Loss of Appetite, Malaise, Nausea/Vomiting, Shortness of Breath, Weakness - Related Data Allergies Allergy/AdvReac Type Severity Reaction Status Date / Time losartan Allergy Rash Verified 05/25/20 12:39 Home Meds: Home Meds Bilberry 100 mg PO DAILY 02/06/19 [History] Clopidogrel [Plavix] 75 mg PO DAILY 02/06/19 [History] Finasteride [Proscar] 5 mg PO DAILY 02/06/19 [History] Metoprolol Succinate [Toprol XL 50mg] 50 mg PO DAILY 02/06/19 [History] Metoprolol Succinate [Toprol XL] 25 mg PO DAILY 02/06/19 [History] Multivit with Minerals/Lutein [Vision Plus Lutein Vitamin] 1 each PO DAILY 02/06/19 [History] allopurinoL [Zyloprim] 100 mg PO DAILY@1800 02/06/19 [History] atorvaSTATin [Lipitor] 10 mg PO Q48H 02/06/19 [History] calcitrioL [Rocaltrol] 0.5 mcg PO DAILY 02/06/19 [History] Amoxicillin 2,000 mg PO ASDIRECTED 01/24/20 [History] Bumetanide [Bumex] 1 mg PO DAILY 01/24/20 [History] Insulin Degludec [Tresiba] 20 unit SQ DAILY 01/24/20 [History] Lancets [Microlet] 1 each MC DAILY 01/24/20 [History] Levothyroxine 25 mcg PO ACBREAKFAST 01/24/20 [History] Past Medical History - Past Health History Medical/Surgical History: Denies Medical/Surgical History HEENT History: Reports: Hard of Hearing, Impaired Vision, Macular Degeneration Cardiovascular History: Reports: Bypass, Stents, Other (See Below) Other Cardiovascular History: valve replaced 2018 Respiratory History: Reports: None Gastrointestinal History: Reports: None Genitourinary History: Reports: Chronic Renal Insuffiency, Other (See Below) Other Genitourinary History: similar issue last year requiring hospitalization Musculoskeletal History: Reports: Arthritis, Gout Neurological History: Reports: None Psychiatric History: Reports: None Endocrine/Metabolic History: Reports: Diabetes, Type II, Obesity/BMI 30+ Hematologic History: Reports: Anemia Immunologic History: Reports: None Oncologic (Cancer) History: Reports: Malignant Melanoma Dermatologic History: Reports: Melanoma - Infectious Disease History Infectious Disease History: Reports: Mumps, Pertussis (Whooping Cough) - Past Surgical History Head Surgeries/Procedures: Reports: None HEENT Surgical History: Reports: None Cardiovascular Surgical History: Reports: Coronary Artery Bypass, Valve Replacement, Other (See Below) Other Cardiovascular Surgeries/Procedures: 3 stents done Jan 05, 2019 in [place] Respiratory Surgical History: Reports: None GI Surgical History: Reports: Colonoscopy Male Surgical History: Reports: None Endocrine Surgical History: Reports: None Neurological Surgical History: Reports: Lumbar Spine Musculoskeletal Surgical History: Reports: Knee Replacement, Shoulder Surgery, Other (See Below) Other Musculoskeletal Surgeries/Procedures:: Back surgery (bone grafting from right leg) in 1949 Oncologic Surgical History: Reports: None Dermatological Surgical History: Reports: Skin Biopsy Social & Family History - Family History Family Medical History: No Pertinent Family History - Caffeine Use Caffeine Use: Reports: Coffee Other Caffeine Use: very little - Living Situation & Occupation Living situation: Reports: Occupation: Retired ED ROS GENERAL - Review of Systems Review Of Systems: See Below Constitutional: Reports: No Symptoms HEENT: Reports: No Symptoms Respiratory: Reports: No Symptoms Cardiovascular: Reports: No Symptoms Endocrine: Reports: No Symptoms GI/Abdominal: Reports: No Symptoms : Reports: Hematuria. Denies: Dysuria, Flank Pain, Frequency, Pain, Urinary Retention Musculoskeletal: Reports: No Symptoms Skin: Reports: Rash Neurological: Reports: No Symptoms Psychiatric: Reports: No Symptoms Hematologic/Lymphatic: Reports: No Symptoms Immunologic: Reports: No Symptoms ED EXAM, GENERAL - Physical Exam Exam: See Below Exam Limited By: No Limitations General Appearance: Alert, WD/WN, No Apparent Distress Head: Atraumatic, Normocephalic Neck: Normal Inspection, Supple, Non-Tender, Full Range of Motion Respiratory/Chest: No Respiratory Distress, Lungs Clear, Normal Breath Sounds, No Accessory Muscle Use, Chest Non-Tender Cardiovascular: Normal Peripheral Pulses, Regular Rate, Rhythm, No Edema, No Gallop, No JVD, No Murmur, No Rub GI/Abdominal: Normal Bowel Sounds, Soft, Non-Tender, No Organomegaly, No Distention, No Abnormal Bruit, No Mass Back Exam: Normal Inspection, Full Range of Motion, NT Extremities: Normal Inspection, Normal Range of Motion, Non-Tender, Normal Capillary Refill, No Pedal Edema Neurological: Alert, Oriented, CN II-XII Intact, Normal Cognition, Normal Gait, Normal Reflexes, No Motor/Sensory Deficits Psychiatric: Normal Affect, Normal Mood Course - Vital Signs Last Recorded V/S: Last Vital Signs Temp 98.3 F 05/25/20 12:40 Pulse 79 05/25/20 12:40 Resp 16 05/25/20 12:40 BP 145/73 H 05/25/20 12:40 Pulse Ox 98 05/25/20 12:40 - Orders/Labs/Meds Orders: Active Orders 24 hr Category Date Time Status Bladder Scan [RC] ASDIRECTED Care 05/25/20 12:59 Active Peripheral IV Care [RC] . DIRECTED Care 05/25/20 12:41 Active Sodium Chloride 0.9% [Saline Flush] Med 05/25/20 12:40 Active 10 ml FLUSH Q8HR PRN Peripheral IV Insertion Adult [OM.PC] Routine Oth 05/25/20 12:40 Ordered Medication Orders Sodium Chloride (Saline Flush) 10 ml FLUSH Q8HR PRN PRN Reason: keep vein open Labs: Laboratory Tests 02/05/21 02/05/21 02/05/21 Range/Units 13:04 13:04 13:04 WBC 7.83 (5.00-10.00) 10^3/uL RBC 3.17 L (4.50-6.00) 10^6/uL Hgb 10.4 L (13.0-17.0) g/dL Hct 30.3 L (40.0-52.0) % MCV 95.6 H (82.0-92.0) fL MCH 32.8 H (27.0-31.0) pg MCHC 34.3 (32.0-36.0) g/dL RDW 12.8 (11.5-14.5) % Plt Count 142 L (150-400) 10^3/uL MPV 10.2 (7.4-10.4) fL Immature Gran % (Auto) 0.4 (0.0-5.0) % Neut % (Auto) 78.5 H (50.0-70.0) % Lymph % (Auto) 11.5 L (20.0-40.0) % [place] % (Auto) 6.9 (2.0-8.0) % Eos % (Auto) 2.3 (1.0-3.0) % Baso % (Auto) 0.4 (0.0-1.0) % Neut # (Auto) 6.15 (2.50-7.00) 10^3/uL Lymph # (Auto) 0.90 L (1.00-4.00) 10^3/uL [place] # (Auto) 0.54 (0.10-0.80) 10^3/uL Eos # (Auto) 0.18 (0.10-0.30) 10^3/uL Baso # (Auto) 0.03 (0.00-0.10) 10^3/uL Immature Gran # (Auto) 0.03 (0.00-0.50) 10^3/uL PT 9.2 (9.2-11.2) SEC INR 0.9 (0.9-1.1) APTT 29.0 (22.8-31.4) SEC Sodium 137 (136-145) mmol/L Potassium 5.0 (3.5-5.1) mmol/L Chloride 102 (98-107) mmol/L Carbon Dioxide 22.9 (21.0-32.0) mmol/L Anion Gap 17.1 H (5-15) mmol/L BUN 62 H* (7-18) mg/dL Creatinine 3.61 H (0.51-1.17) mg/dL Est Cr Clr Drug Dosing 13.68 mL/min Estimated GFR (MDRD) 16 mL/min Glucose 213 H (70-140) mg/dL Calcium 9.6 (8.7-10.3) mg/dL Total Bilirubin 0.3 (0.2-1.0) mg/dL AST 21 (15-37) U/L ALT 22 (14-63) U/L Alkaline Phosphatase 81 (46-116) U/L Total Protein 6.5 (6.4-8.2) g/dL Albumin 2.72 L (3.40-5.00) g/dL Specimen Type Urine Color (YELLOW) Urine Appearance (CLEAR) Urine pH (5.0-9.0) Ur Specific [place] (1.005-1.030) Urine Protein (NEGATIVE) mg/dL Urine Glucose (UA) (NEGATIVE) mg/dL Urine Ketones (NEGATIVE) mg/dL Urine Occult Blood (NEGATIVE) Urine Nitrite (NEGATIVE) Urine Bilirubin (NEGATIVE) Urine Urobilinogen (0.2-1.0) E.U./dL Ur Leukocyte Esterase (NEGATIVE) Urine RBC (0-5) /HPF Urine WBC (0-5) /HPF Ur Epithelial Cells /LPF Urine Bacteria (NONE TO FEW) /HPF 05/25/20 Range/Units 13:15 WBC (5.00-10.00) 10^3/uL RBC (4.50-6.00) 10^6/uL Hgb (13.0-17.0) g/dL Hct (40.0-52.0) % MCV (82.0-92.0) fL MCH (27.0-31.0) pg MCHC (32.0-36.0) g/dL RDW (11.5-14.5) % Plt Count (150-400) 10^3/uL MPV (7.4-10.4) fL Immature Gran % (Auto) (0.0-5.0) % Neut % (Auto) (50.0-70.0) % Lymph % (Auto) (20.0-40.0) % [place] % (Auto) (2.0-8.0) % Eos % (Auto) (1.0-3.0) % Baso % (Auto) (0.0-1.0) % Neut # (Auto) (2.50-7.00) 10^3/uL Lymph # (Auto) (1.00-4.00) 10^3/uL [place] # (Auto) (0.10-0.80) 10^3/uL Eos # (Auto) (0.10-0.30) 10^3/uL Baso # (Auto) (0.00-0.10) 10^3/uL Immature Gran # (Auto) (0.00-0.50) 10^3/uL PT (9.2-11.2) SEC INR (0.9-1.1) APTT (22.8-31.4) SEC Sodium (136-145) mmol/L Potassium (3.5-5.1) mmol/L Chloride (98-107) mmol/L Carbon Dioxide (21.0-32.0) mmol/L Anion Gap (5-15) mmol/L BUN (7-18) mg/dL Creatinine (0.51-1.17) mg/dL Est Cr Clr Drug Dosing mL/min Estimated GFR (MDRD) mL/min Glucose (70-140) mg/dL Calcium (8.7-10.3) mg/dL Total Bilirubin (0.2-1.0) mg/dL AST (15-37) U/L ALT (14-63) U/L Alkaline Phosphatase (46-116) U/L Total Protein (6.4-8.2) g/dL Albumin (3.40-5.00) g/dL Specimen Type [place] Urine Color [place] H (YELLOW) Urine Appearance Cloudy H (CLEAR) Urine pH 5.5 (5.0-9.0) Ur Specific [place] 1.015 (1.005-1.030) Urine Protein 100 H (NEGATIVE) mg/dL Urine Glucose (UA) Negative (NEGATIVE) mg/dL Urine Ketones Negative (NEGATIVE) mg/dL Urine Occult Blood Large H (NEGATIVE) Urine Nitrite Negative (NEGATIVE) Urine Bilirubin Negative (NEGATIVE) Urine Urobilinogen 0.2 (0.2-1.0) E.U./dL Ur Leukocyte Esterase Negative (NEGATIVE) Urine RBC Packed (0-5) /HPF Urine WBC 40-50 H (0-5) /HPF Ur Epithelial Cells Few /LPF Urine Bacteria Few (NONE TO FEW) /HPF Meds: Medications Generic Name Dose Route Start Last Admin Trade Name Freq PRN Reason Stop Dose Admin Sodium Chloride 10 ml 05/25/20 12:40 Saline Flush FLUSH Q8HR PRN keep vein open - Re-Assessments/Exams Free Text/Narrative Re-Assessment/Exam: 05/25/20 14:20 DISCUSSED CASE WITH KATHIA CHRIS BAUMAN- WILL GIVE 1 TIME DOSE OF ROCEPHIN 1G IV FOR POSSIBLE UTI AND FOLLOW UP IN CLINIC EARLY NEXT WEEK FOR URINE CULTURE RESULTS Departure - Departure Time of Disposition: 14:21 Disposition: Home, Self-Care 01 Condition: Good Clinical Impression: Renal insufficiency Hematuria Qualifiers: Hematuria type: gross Qualified Code(s): R31.0 - Gross hematuria Urinary tract infection Qualifiers: Hematuria presence: with hematuria - Discharge Information Instructions: Urinary Tract Infection, Adult, Hematuria, Adult Referrals: Jeannine Brush, NEWSPAPER REPORTER [Primary Care Provider] - Forms: ED Department Discharge Additional Instructions: 1. DISCHARGE HOME 2. FOLLOW UP WITH JEANNINE BAUMAN EARLY NEXT WEEK FOR URINE CULTURE RESULTS 3. RETURN TO ER FOR WORSENING SYMPTOMS Sepsis Event Note (ED) - Evaluation Sepsis Screening Result: No Definite Risk - Focused Exam Vital Signs: Vital Signs Temp Pulse Resp BP Pulse Ox 05/25/20 12:40 98.3 F 79 16 145/73 H 98 - My Orders Last 24 Hours: My Active Orders 05/25/20 12:40 Sodium Chloride 0.9% [Saline Flush] 10 ml FLUSH Q8HR PRN Peripheral IV Insertion Adult [OM.PC] Routine 05/25/20 12:41 Peripheral IV Care [RC] . DIRECTED 05/25/20 12:59 Bladder Scan [RC] ASDIRECTED - Assessment/Plan Last 24 Hours: My Active Orders 05/25/20 12:40 Sodium Chloride 0.9% [Saline Flush] 10 ml FLUSH Q8HR PRN Peripheral IV Insertion Adult [OM.PC] Routine 05/25/20 12:41 Peripheral IV Care [RC] . DIRECTED 05/25/20 12:59 Bladder Scan [RC] ASDIRECTED Assessment:: 1. RENAL INSUFFICIENCY- NO SIGNIFICANT CHANGE FROM 01/24/2020 (CR 3.3 AT THAT TIME) 2. POSSIBLE UTI 3. HEMATURIA RELATED TO POSSIBLE UTI WITHOUT EVIDENCE OF OBSTRUCTIVE UROPATHY Plan: 1. DISCHARGE HOME 2. FOLLOW UP WITH JEANNINE BAUMAN EARLY NEXT WEEK FOR URINE CULTURE RESULTS 3. RETURN TO ER FOR WORSENING SYMPTOMS
[2020-05-25 13:29] LABS: ANION GAP 17.1 mmol/L (5-15)
[2020-05-25] MEDS ORDERED: cefTRIAXone 1 GM Vial IVPUSH ONE (14:22)
== END 2020-05-25 14:42 | disposition home or self-care (01) ==
LOC: KA.ED 12:37
DX: N39.0 Urinary tract infection, site not specified (principal); R31.0 Gross hematuria; E11.22 Type 2 diabetes mellitus with diabetic chronic kidney disease; N18.9 Chronic kidney disease, unspecified; D63.1 Anemia in chronic kidney disease; M10.9 Gout, unspecified; E66.9 Obesity, unspecified; Z68.30 Body mass index [BMI] 30.0-30.9, adult; Z88.8 Allergy status to other drugs, medicaments and biological substances; Z79.02 Long term (current) use of antithrombotics/antiplatelets; Z79.4 Long term (current) use of insulin; Z79.899 Other long term (current) drug therapy
CPT/HCPCS: 51798; 80053; 81001; 85025; 85610; 85730; 87086; 96374; 99283-25; 99284; J0696

== ENCOUNTER 2020-06-03 19:53 | Emergency (ER) | payer MEDICARE, BC ==
--- NOTE | 2020-06-03 21:14 | EDM.PDOC ---
ED HPI GENERAL MEDICAL PROBLEM - General Stated Complaint: BLOOD IN URINE Time Seen by Provider: 06/03/20 20:49 Source of Information: Reports: Patient History Limitations: Reports: No Limitations - History of Present Illness INITIAL COMMENTS - FREE TEXT/NARRATIVE: Patient presents with inability to void urine for last few hours. His last complete was 6 hours ago and he feels like he needs to now but can't. The last couple days there were small clots in the urine and a red tinge. Today at 3:00 he did notice a small clot again. He has been doing quite well with urine output for several weeks but did have hematuria and clots back in January 2020. He was also her 8 days ago with UTI symptoms and had cath UA done and a one-time dose of Rocephin 1 gm (noted in ER note from 05/25/20). He has a mass on his kidney and is scheduled for a CT tomorrow for further evaluation. - Related Data Allergies Allergy/AdvReac Type Severity Reaction Status Date / Time losartan Allergy Rash Verified 06/03/20 20:38 Home Meds: Home Meds Bilberry 100 mg PO DAILY 02/06/19 [History] Finasteride [Proscar] 5 mg PO DAILY 02/06/19 [History] Metoprolol Succinate [Toprol XL 50mg] 50 mg PO DAILY 02/06/19 [History] Metoprolol Succinate [Toprol XL] 25 mg PO DAILY 02/06/19 [History] Multivit with Minerals/Lutein [Vision Plus Lutein Vitamin] 1 each PO DAILY 02/06/19 [History] allopurinoL [Zyloprim] 100 mg PO DAILY@1800 02/06/19 [History] atorvaSTATin [Lipitor] 10 mg PO Q48H 02/06/19 [History] calcitrioL [Rocaltrol] 0.5 mcg PO DAILY 02/06/19 [History] Amoxicillin 2,000 mg PO ASDIRECTED 01/24/20 [History] Bumetanide [Bumex] 1 mg PO DAILY 01/24/20 [History] Insulin Degludec [Tresiba] 20 unit SQ DAILY 01/24/20 [History] Lancets [Microlet] 1 each MC DAILY 01/24/20 [History] Levothyroxine 25 mcg PO ACBREAKFAST 01/24/20 [History] Aspirin [Aspirin EC] 81 mg PO QAM 06/03/20 [History] Ergocalciferol (Vitamin D2) [Vitamin D2] 50,000 unit PO ASDIRECTED 06/03/20 [History] Iron Polysaccharide Complex [Iferex 150] 150 mg PO QAM 06/03/20 [History] Sodium Bicarbonate 650 mg PO TID 06/03/20 [History] Past Medical History - Past Health History Medical/Surgical History: Denies Medical/Surgical History HEENT History: Reports: Hard of Hearing, Impaired Vision, Macular Degeneration Cardiovascular History: Reports: Bypass, Stents, Other (See Below) Other Cardiovascular History: valve replaced 2018 Respiratory History: Reports: None Gastrointestinal History: Reports: None Genitourinary History: Reports: Chronic Renal Insuffiency, Other (See Below) Other Genitourinary History: similar issue last year requiring hospitalization Musculoskeletal History: Reports: Arthritis, Gout Neurological History: Reports: None Psychiatric History: Reports: None Endocrine/Metabolic History: Reports: Diabetes, Type II, Obesity/BMI 30+ Hematologic History: Reports: Anemia Immunologic History: Reports: None Oncologic (Cancer) History: Reports: Malignant Melanoma Dermatologic History: Reports: Melanoma - Infectious Disease History Infectious Disease History: Reports: Mumps, Pertussis (Whooping Cough) - Past Surgical History Head Surgeries/Procedures: Reports: None HEENT Surgical History: Reports: None Cardiovascular Surgical History: Reports: Coronary Artery Bypass, Valve Replacement, Other (See Below) Other Cardiovascular Surgeries/Procedures: 3 stents done Jan 05, 2019 in [place] Respiratory Surgical History: Reports: None GI Surgical History: Reports: Colonoscopy Male Surgical History: Reports: None Endocrine Surgical History: Reports: None Neurological Surgical History: Reports: Lumbar Spine Musculoskeletal Surgical History: Reports: Knee Replacement, Shoulder Surgery, Other (See Below) Other Musculoskeletal Surgeries/Procedures:: Back surgery (bone grafting from r ight leg) in 1949 Oncologic Surgical History: Reports: None Dermatological Surgical History: Reports: Skin Biopsy Social & Family History - Family History Family Medical History: No Pertinent Family History - Caffeine Use Caffeine Use: Reports: Coffee Other Caffeine Use: very little - Living Situation & Occupation Living situation: Reports: Occupation: Retired ED ROS GENERAL - Review of Systems Review Of Systems: See Below Constitutional: Denies: Fever, Chills, Malaise, Weakness HEENT: Denies: Throat Pain, Vision Change Respiratory: Denies: Shortness of Breath, Cough Cardiovascular: Denies: Chest Pain, Lightheadedness, Syncope GI/Abdominal: Denies: Abdominal Pain, Diarrhea, Decreased Appetite, Vomiting : Reports: Dysuria (not much but did at the beginning or urination earlier today). Denies: Flank Pain Musculoskeletal: Reports: No Symptoms Skin: Denies: Cyanosis, Jaundice, Mottled, Pallor, Diaphoresis Neurological: Denies: Confusion, Seizure, Syncope, Trouble Speaking Psychiatric: Denies: Agitation, Anxiety, Confusion ED EXAM, RENAL/ - Physical Exam Exam: See Below Exam Limited By: No Limitations General Appearance: Alert, WD/WN, No Apparent Distress Eye Exam: Bilateral Eye: EOMI, Normal Inspection, PERRL Ears: Normal External Exam, Hearing Grossly Normal Nose: Normal Inspection, No Blood Throat/Mouth: Normal Inspection, Normal Lips, Normal Voice, No Airway Compromise Head: Atraumatic, Normocephalic Neck: Normal Inspection, Full Range of Motion Respiratory/Chest: No Respiratory Distress, Lungs Clear, Normal Breath Sounds, No Accessory Muscle Use Cardiovascular: Regular Rate, Rhythm, No Murmur GI/Abdominal: Normal Bowel Sounds, Soft, Non-Tender, No Organomegaly, No Distention Back Exam: Normal Inspection, Full Range of Motion, CVA Tenderness (R) (a little; he thinks due to mass on right kidney). No: CVA Tenderness (L) Extremities: Normal Inspection, Normal Range of Motion Neurological: Alert, Oriented, Normal Cognition, No Motor/Sensory Deficits Psychiatric: Normal Affect, Normal Mood Skin Exam: Warm, Dry, Intact, Normal Color, No Rash Course - Vital Signs Last Recorded V/S: Last Vital Signs Temp 96.8 F L 06/03/20 19:57 Pulse 75 06/03/20 21:45 Resp 14 06/03/20 21:45 BP 132/69 06/03/20 21:45 Pulse Ox 93 L 06/03/20 21:45 - Orders/Labs/Meds Orders: Active Orders 24 hr Category Date Time Status Bladder Scan [RC] ASDIRECTED Care 06/03/20 20:20 Active CULTURE URINE [RM] Stat Lab 06/03/20 22:20 Ordered Labs: Laboratory Tests 06/03/20 06/03/20 06/03/20 Range/Units 21:40 21:50 21:50 WBC 6.00 (5.00-10.00) 10^3/uL RBC 3.12 L (4.50-6.00) 10^6/uL Hgb 10.2 L (13.0-17.0) g/dL Hct 30.1 L (40.0-52.0) % MCV 96.5 H (82.0-92.0) fL MCH 32.7 H (27.0-31.0) pg MCHC 33.9 (32.0-36.0) g/dL RDW 13.0 (11.5-14.5) % Plt Count 175 (150-400) 10^3/uL MPV 9.6 (7.4-10.4) fL Immature Gran % (Auto) 1.0 (0.0-5.0) % Neut % (Auto) 72.0 H (50.0-70.0) % Lymph % (Auto) 17.5 L (20.0-40.0) % [place] % (Auto) 6.0 (2.0-8.0) % Eos % (Auto) 3.0 (1.0-3.0) % Baso % (Auto) 0.5 (0.0-1.0) % Neut # (Auto) 4.32 (2.50-7.00) 10^3/uL Lymph # (Auto) 1.05 (1.00-4.00) 10^3/uL [place] # (Auto) 0.36 (0.10-0.80) 10^3/uL Eos # (Auto) 0.18 (0.10-0.30) 10^3/uL Baso # (Auto) 0.03 (0.00-0.10) 10^3/uL Immature Gran # (Auto) 0.06 (0.00-0.50) 10^3/uL Sodium 139 (136-145) mmol/L Potassium 5.2 H (3.5-5.1) mmol/L Chloride 105 (98-107) mmol/L Carbon Dioxide 24.7 (21.0-32.0) mmol/L Anion Gap 14.5 (5-15) mmol/L BUN 77 H* (7-18) mg/dL Creatinine 3.42 H (0.51-1.17) mg/dL Est Cr Clr Drug Dosing 14.69 mL/min Estimated GFR (MDRD) 17 mL/min Glucose 171 H (70-140) mg/dL Calcium 10.0 (8.7-10.3) mg/dL Specimen Type Urincath Urine Color Red H (YELLOW) Urine Appearance Cloudy H (CLEAR) Urine pH 5.5 (5.0-9.0) Ur Specific Aspers 1.015 (1.005-1.030) Urine Protein >=300 H (NEGATIVE) mg/dL Urine Glucose (UA) Negative (NEGATIVE) mg/dL Urine Ketones Trace H (NEGATIVE) mg/dL Urine Occult Blood Large H (NEGATIVE) Urine Nitrite Negative (NEGATIVE) Urine Bilirubin Moderate H (NEGATIVE) Urine Urobilinogen 1.0 (0.2-1.0) E.U./dL Ur Leukocyte Esterase Large H (NEGATIVE) Urine RBC Packed (0-5) /HPF Urine WBC 75-100 H (0-5) /HPF Urine Bacteria Few (NONE TO FEW) /HPF Meds: Medications Discontinued Medications Generic Name Dose Route Start Last Admin Trade Name Jesusita PRN Reason Stop Dose Admin Ceftriaxone Sodium 1 gm 06/03/20 22:32 Rocephin IM 06/03/20 22:33 ONETIME ONE - Re-Assessments/Exams Free Text/Narrative Re-Assessment/Exam: 06/03/20 22:33 Hg is 10.2, BUN 77, Creatinine 3.4, GFR 17; these values are fairly stable from previous. A shaw was placed to empty bladder. It was left so patient is able to pass urine tonight and tomorrow. UA shows large amount of blood and also leukocyte esterase, protein and WBCs. Will culture the urine and give Rocephin 1 gm now. Tomorrow patient will call [facility] to discuss with Jana Brush continuing antibiotic course and follow up for removal of catheter. I discussed case with Dr. Sears as well so we are all on the same page. The shaw catheter we placed today will be removed tomorrow or Thursday. He will have his CT as scheduled tomorrow also. I discussed findings and plan with patient who understands and agrees. He is stable. Departure - Departure Time of Disposition: 22:41 Disposition: Home, Self-Care 01 Condition: Good Clinical Impression: CKD (chronic kidney disease) stage 4, GFR 15-29 ml/min, UTI (urinary tract infection), uncomplicated, Acute retention of urine Hematuria Qualifiers: Hematuria type: gross Qualified Code(s): R31.0 - Gross hematuria - Discharge Information Referrals: Jana Brush, [facility] [Primary Care Provider] - Additional Instructions: Call Jana Brush at the [facility] tomorrow morning to see what she would like you to take for antibiotic for the bladder infection and when she would like to see you for removal of the shaw catheter (likely Thursday or Thursday). Have your CT done as scheduled. Drink 6-8 cups of water daily. Sepsis Event Note (ED) - Focused Exam Vital Signs: Vital Signs Temp Pulse Resp BP Pulse Ox 06/03/20 21:45 75 14 132/69 93 L 06/03/20 21:31 76 17 131/65 95 06/03/20 21:16 82 20 149/71 H 94 L 06/03/20 21:00 71 14 143/78 H 96 06/03/20 20:45 73 11 L 120/66 93 L 06/03/20 20:31 79 16 132/59 L 06/03/20 20:15 77 17 121/60 94 L 06/03/20 20:01 77 19 123/54 L 95 06/03/20 19:57 96.8 F L 78 15 148/67 H 97 - My Orders Last 24 Hours: My Active Orders 06/03/20 20:20 Bladder Scan [RC] ASDIRECTED 06/03/20 22:20 CULTURE URINE [RM] Stat - Assessment/Plan Last 24 Hours: My Active Orders 06/03/20 20:20 Bladder Scan [RC] ASDIRECTED 06/03/20 22:20 CULTURE URINE [RM] Stat
[2020-06-03 22:14] LABS: ANION GAP 14.5 mmol/L (5-15)
[2020-06-03] MEDS ORDERED: cefTRIAXone 1 GM Vial IM ONE (22:32)
== END 2020-06-03 23:20 | disposition home or self-care (01) ==
LOC: KA.ED 19:53
DX: R33.9 Retention of urine, unspecified (principal); N39.0 Urinary tract infection, site not specified; N18.4 Chronic kidney disease, stage 4 (severe); E11.22 Type 2 diabetes mellitus with diabetic chronic kidney disease; M10.9 Gout, unspecified; E66.9 Obesity, unspecified; Z68.29 Body mass index [BMI] 29.0-29.9, adult; Z88.8 Allergy status to other drugs, medicaments and biological substances; Z79.899 Other long term (current) drug therapy; Z79.82 Long term (current) use of aspirin; Z79.4 Long term (current) use of insulin
CPT/HCPCS: 36415; 51702; 80048; 81001; 85025; 87086; 99283; 99284

== ENCOUNTER 2020-06-05 17:50 | Observation (INO) | payer MEDICARE, BC ==
[~2020-06-05 17:50] MED LIST: Ferrous Sulfate 325 MG Tab PO SCH
[2020-06-05] MEDS ORDERED: Sodium Chloride 0.9% 10 ML Syringe FLUSH PRN (18:18)
[2020-06-05 18:35] LABS: ANION GAP 16.3 mmol/L (5-15); CHLORIDE,CL 104 mmol/L (98-107); SODIUM,NA 139 mmol/L (136-145)
[2020-06-05] MEDS ORDERED: FERROUS FUMARATE PO SCH (21:00)
[2020-06-05] MEDS ORDERED: VITAMIN C PO SCH (21:00)
[2020-06-05] MEDS: atorvaSTATin 10 MG Tab PO SCH (21:32)
[2020-06-05] MEDS: Allopurinol 100 MG Tab PO SCH (21:33)
[2020-06-06] MEDS: Acetaminophen 325 MG Tab PO PRN (00:58)
[2020-06-06] MEDS: Levothyroxine 25 MCG Tab PO SCH (06:32)
[2020-06-06] MEDS ORDERED: INSULIN DEGLUDEC 10 UNIT SQ SCH (07:30)
[2020-06-06 08:47] LABS: ANION GAP 15.4 mmol/L (5-15)
[2020-06-06] MEDS: Finasteride 5 MG Tab PO SCH (08:57)
[2020-06-06] MEDS: Calcitriol 0.25 MCG Cap PO SCH (08:57)
[2020-06-06] MEDS: Metoprolol Succinate 25 MG Tab.ER PO SCH (08:58)
[2020-06-06] MEDS: Aspirin 81 MG Tab.EC PO SCH (08:58)
[2020-06-06] MEDS ORDERED: Bumetanide 1 MG Tab PO SCH (09:00)
[2020-06-06] MEDS ORDERED: Metoprolol Succinate 50 MG Tab.ER PO SCH (09:00)
--- NOTE | 2020-06-06 11:11 | PCM.PN ---
- General Info Date of Service: 06/06/20 Functional Status: Reports: Pain Controlled, Tolerating Diet. Denies: Ambulating - Review of Systems General: Denies: Fever, Weakness, Night Sweats HEENT: Reports: No Symptoms Pulmonary: Reports: No Symptoms Cardiovascular: Denies: Chest Pain, Edema Gastrointestinal: Denies: Abdominal Pain, Diarrhea, Melena, Nausea Genitourinary: Reports: Hematuria Musculoskeletal: Reports: No Symptoms Skin: Reports: Pallor Neurological: Denies: Confusion, Dizziness Psychiatric: Denies: Confusion - Patient Data Vitals - Most Recent: Last Vital Signs Temp 97.8 F 06/06/20 06:53 Pulse 66 06/06/20 08:58 Resp 20 06/06/20 06:53 BP 134/69 06/06/20 08:58 Pulse Ox 95 06/06/20 06:53 Weight - Most Recent: 200 lb 4.8 oz I&O - Last 24 Hours: Intake & Output 06/05/20 06/06/20 06/06/20 22:59 06:59 14:59 Intake Total 120 50 Output Total 400 Balance -280 50 Lab Results Last 24 Hours: Laboratory Results - last 24 hr 06/05/20 06/05/20 06/05/20 Range/Units 18:00 18:18 21:41 WBC (5.00-10.00) 10^3/uL RBC (4.50-6.00) 10^6/uL Hgb (13.0-17.0) g/dL Hct (40.0-52.0) % MCV (82.0-92.0) fL MCH (27.0-31.0) pg MCHC (32.0-36.0) g/dL RDW (11.5-14.5) % Plt Count (150-400) 10^3/uL MPV (7.4-10.4) fL Sodium 139 (136-145) mmol/L Potassium 5.4 H (3.5-5.1) mmol/L Chloride 104 (98-107) mmol/L Carbon Dioxide 24.1 (21.0-32.0) mmol/L Anion Gap 16.3 H (5-15) mmol/L BUN 70 H* (7-18) mg/dL Creatinine 3.62 H (0.51-1.17) mg/dL Est Cr Clr Drug Dosing TNP Estimated GFR (MDRD) 16 mL/min Glucose 112 (70-140) mg/dL POC Glucose 213 H (74-100) mg/dL Calcium 9.9 (8.7-10.3) mg/dL Total Bilirubin 0.3 (0.2-1.0) mg/dL AST 21 (15-37) U/L ALT 23 (14-63) U/L Alkaline Phosphatase 88 (46-116) U/L Total Protein 6.9 (6.4-8.2) g/dL Albumin 3.10 L (3.40-5.00) g/dL SARS CoV-2 RNA Rapid ANGELINA Negative (NEGATIVE) 06/06/20 06/06/20 Range/Units 07:28 07:28 WBC 5.24 (5.00-10.00) 10^3/uL RBC 2.84 L (4.50-6.00) 10^6/uL Hgb 9.1 L (13.0-17.0) g/dL Hct 27.6 L (40.0-52.0) % MCV 97.2 H (82.0-92.0) fL MCH 32.0 H (27.0-31.0) pg MCHC 33.0 (32.0-36.0) g/dL RDW 13.0 (11.5-14.5) % Plt Count 161 (150-400) 10^3/uL MPV 9.6 (7.4-10.4) fL Sodium 139 (136-145) mmol/L Potassium 4.7 (3.5-5.1) mmol/L Chloride 107 (98-107) mmol/L Carbon Dioxide 21.3 (21.0-32.0) mmol/L Anion Gap 15.4 H (5-15) mmol/L BUN 67 H* (7-18) mg/dL Creatinine 3.40 H (0.51-1.17) mg/dL Est Cr Clr Drug Dosing 14.77 Estimated GFR (MDRD) 17 mL/min Glucose 106 (70-140) mg/dL POC Glucose (74-100) mg/dL Calcium 9.3 (8.7-10.3) mg/dL Total Bilirubin (0.2-1.0) mg/dL AST (15-37) U/L ALT (14-63) U/L Alkaline Phosphatase (46-116) U/L Total Protein (6.4-8.2) g/dL Albumin (3.40-5.00) g/dL SARS CoV-2 RNA Rapid ANGELINA (NEGATIVE) Med Orders - Current: Current Medications Acetaminophen (Tylenol) 650 mg PO Q6H PRN PRN Reason: Pain Last Admin: 06/06/20 00:58 Dose: 650 mg Documented by: Allopurinol (Zyloprim) 100 mg PO DAILY@1800 [facility] Last Admin: 06/05/20 21:33 Dose: 100 mg Documented by: Ascorbic Acid (Vitamin C) 500 mg PO Q24H [facility]) [facility] Admin: 06/06/20 08:58 Dose: 81 mg Documented by: Atorvastatin Calcium (Lipitor) 10 mg PO 1800 [facility] Last Admin: 06/05/20 21:32 Dose: Not Given Documented by: Bumetanide (Bumex) [facility] Calcitriol (Rocaltrol) 0.5 [facility]cg [facility] Last Admin: 06/06/20 08:57 Dose: 0.5 mcg Documented by: Ferrous Sulfate (Ferrous Sulfate) 325 mg PO Q24H [facility] Finasteride (Proscar) [facility] Last Admin: 06/06/20 08:57 Dose: 5 mg Documented by: Levothyroxine Sodium (Levothyroxine) 25 mcg PO ACBREAKFAST [facility] Last Admin: 06/06/20 06:32 Dose: 25 mcg Documented by: Metoprolol Succinate (Toprol Xl) 75 mg PO [facility] Last Admin: 06/06/20 08:58 Dose: 75 mg Documented by: Non-Formulary Medication (Insulin Degludec [Tresiba]) [facility] Sodium Chloride (Saline Flush) 10 ml FLUSH Q8HR PRN PRN Reason: keep vein open Last Admin: 06/06/20 06:33 Dose: 10 ml Documented by: Discontinued Medications Ferrous Sulfate (Ferrous Sulfate) 325 mg PO Q24H [facility] Last Admin: 06/05/20 22:25 Dose: Not Given Documented by: Metoprolol Succinate (Toprol Xl) [facility] Non-Formulary Medication (Ferrous Fumarate/Vitamin C [Vitron-C]) 1 tab PO BID TANYA - Exam Quality Assessment: No: DVT Prophylaxis General: Alert, Oriented, Cooperative Lungs: Clear to Auscultation, Normal Respiratory Effort. No: Crackles, Rales Cardiovascular: Regular Rate, Regular Rhythm, Murmurs GI/Abdominal Exam: No: Distended (Male) Exam: Deferred Back Exam: No: CVA Tenderness (L), CVA Tenderness (R) Extremities: No Pedal Edema Skin: Rash Neurological: No New Focal Deficit Psy/Mental Status: Alert, Normal Affect Sepsis Event Note - Evaluation Sepsis Screening Result: No Definite Risk - Focused Exam Vital Signs: Vital Signs Temp Pulse Pulse Resp BP BP Pulse Ox 06/06/20 08:58 66 134/69 06/06/20 06:53 97.8 F 78 20 127/63 95 06/06/20 03:00 96.9 F 76 16 107/62 96 06/05/20 23:00 97.7 F 73 16 125/57 L 96 - Problem List Review Problem List Initiated/Reviewed/Updated: Yes - My Orders Last 24 Hours: My Active Orders 06/05/20 17:50 Patient Status [ADT] Routine 06/05/20 Dinner [employer] Diet [DIET] 06/05/20 18:18 Oxygen Therapy [RC] PRN Up to Chair [RC] ASDIRECTED Urinary Catheter Assessment [RC] VTE/DVT Education [RC] PER UNIT ROUTINE Vital Signs [RC] 03,07,11,15,19,23 Sodium Chloride 0.9% [Saline Flush] 10 ml FLUSH Q8HR PRN Peripheral IV Insertion Adult [OM.PC] Routine Resuscitation Status Routine 06/05/20 18:25 Peripheral IV Care [RC] . DIRECTED 06/05/20 18:30 Metcalf Catheter Insertion [Insert Urinary Catheter] [OM.PC] Q24H 06/05/20 20:00 Bladder Irrigation [RC] 06,14,22 - Plan Plan:: History summary 89-year-old gentleman that was admitted from an outlying clinic last night into OBS status due to urinary retention/hematuria. Patient was seen and evaluated [facility] by this author yesterday when he been complaining of gross hematuria leaking of a urinary catheter and abdominal distention and unable to urinate in the catheter. 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 He was admitted into OBS status for CBI overnight Relative/pertinent recent history Patient presented to the [facility] ED secondary to inability to void. At that time his last urination prior to the ED visit was 6 hours prior and he felt like he needed to go but he couldn't. He did admit to some small clots in the urine and red tinged leading up to him going into the emergency room. He did admit to urinating quite well but noticed some hematuria and clots back in January 2020. His hemoglobin was 10.2, BUN 77, Creatinine 3.4, GFR 17; value which seems stable from previous. He had a Metcalf catheter placed to decompress the bladder. UA shows large amount of blood and also leukocyte esterase, protein and WBCs. A urine culture was done result showed no growth. He was given 1 g of Rocephin. He was instructed to notify [facility] to discuss with Jana Brush continuing antibiotic course and follow up for removal of catheter however provider was out due to illness. He presented to [place] ED on May 25 complaining of worsening renal function and episode of hematuria that morning. At that time he reported on inoperable renal mass with renal insufficiency which had worsened recently. Was seen and evaluated in outpatient clinic the day prior for rash and had evaluation for uremia in which his creatinine went from Baseline of 3-4 with GFR 14. He was c omplaining of one episode of hematuria prompting him to come to the ED that day. He denied passing any clots in the urine since was no significant change from his renal insufficiency and creatinine at that time he was diagnosed with a possible UTI and was discharged home for follow-up. CT abdomen and pelvis DOS 06/04/2020 1. Though precise measurements are somewhat challenging, the right renal mass that extends into the renal pelvis does appear to have increased in size from the previous exam. 2. Hyperdensity seen within the urinary bladder, likely blood clot. Metcalf catheter appropriately positioned. 3. Exophytic lesion of the left kidney now measuring higher density than a simple cyst. This demonstrated cystic attenuation on the January 25, 2020 exam. Probably hemorrhagic cyst. 4. Otherwise relatively stable findings in the abdomen and pelvis. __ Primary hospital problems --Retention with hematuria, secondary to neoplasm/renal mass, continue CBI until clear --Anemia, combination ACD/blood loss, hemoglobin 9.1 Chronic/stable problems Chronic kidney disease Coronary artery disease, with hx of CABG/stent, ASA s/p TAVR T2DM COPD, Secondary hyperparathyroidism. Macular degeneration. Gout Consultations --With urology [facility] 1 call, will continue with CBI, possible trial without catheter tomorrow Disposition/overall plan --Stop CBI and clamp catheter 0300 a.m. (timed) --We will discuss hospice --labs in am.
[2020-06-06] MEDS: Ferrous Sulfate 325 MG Tab PO SCH (12:01)
[2020-06-06] MEDS: Ascorbic Acid 500 MG Tab PO SCH (12:01)
[2020-06-06] MEDS: atorvaSTATin 10 MG Tab PO SCH (17:22)
[2020-06-06] MEDS: Allopurinol 100 MG Tab PO SCH (17:22)
[2020-06-07] MEDS: Acetaminophen 325 MG Tab PO PRN ×2 (03:43→11:26)
[2020-06-07] MEDS: Levothyroxine 25 MCG Tab PO SCH (06:38)
[2020-06-07] MEDS: Finasteride 5 MG Tab PO SCH (08:03)
[2020-06-07] MEDS: Calcitriol 0.25 MCG Cap PO SCH (08:03)
[2020-06-07] MEDS: Metoprolol Succinate 25 MG Tab.ER PO SCH (08:04)
[2020-06-07] MEDS: Aspirin 81 MG Tab.EC PO SCH (08:04)
[2020-06-07] MEDS: Ascorbic Acid 500 MG Tab PO SCH (11:26)
[2020-06-07] MEDS: Ferrous Sulfate 325 MG Tab PO SCH (11:26)
--- NOTE | 2020-06-07 11:33 | PCM.PN ---
- General Info Date of Service: 06/07/20 Functional Status: Reports: Pain Controlled, Tolerating Diet, Urinating (voiding via catherter). Denies: Ambulating - Review of Systems General: Reports: Weakness HEENT: Reports: No Symptoms Pulmonary: Reports: No Symptoms Cardiovascular: Reports: No Symptoms Gastrointestinal: Reports: No Symptoms Skin: Reports: Pallor Neurological: Reports: Difficulty Walking, Weakness Psychiatric: Reports: No Symptoms - Patient Data Vitals - Most Recent: Last Vital Signs Temp 97.9 F 06/07/20 07:00 Pulse 70 06/07/20 08:04 Resp 18 06/07/20 07:00 BP 148/70 H 06/07/20 08:04 Pulse Ox 97 06/07/20 07:00 Weight - Most Recent: 200 lb 4.8 oz I&O - Last 24 Hours: Intake & Output 06/06/20 06/07/20 06/07/20 22:59 06:59 14:59 Intake Total 320 50 Output Total 550 100 Balance -230 -50 Lab Results Last 24 Hours: Laboratory Results - last 24 hr 06/06/20 06/07/20 06/07/20 Range/Units 18:37 07:10 07:10 WBC 5.72 (5.00-10.00) 10^3/uL RBC 3.19 L (4.50-6.00) 10^6/uL Hgb 10.1 L (13.0-17.0) g/dL Hct 30.6 L (40.0-52.0) % MCV 95.9 H (82.0-92.0) fL MCH 31.7 H (27.0-31.0) pg MCHC 33.0 (32.0-36.0) g/dL RDW 13.0 (11.5-14.5) % Plt Count 168 (150-400) 10^3/uL MPV 9.3 (7.4-10.4) fL Sodium 137 (136-145) mmol/L Potassium 4.7 (3.5-5.1) mmol/L Chloride 105 (98-107) mmol/L Carbon Dioxide 21.7 (21.0-32.0) mmol/L Anion Gap 15.0 (5-15) mmol/L BUN 71 H* (7-18) mg/dL Creatinine 3.62 H (0.51-1.17) mg/dL Est Cr Clr Drug Dosing 13.88 mL/min Estimated GFR (MDRD) 16 mL/min Glucose 125 (70-140) mg/dL POC Glucose 108 H (74-100) mg/dL Calcium 9.2 (8.7-10.3) mg/dL Med Orders - Current: Current Medications Acetaminophen (Tylenol) 650 mg PO Q6H PRN PRN Reason: Pain Last Admin: 06/07/20 11:26 Dose: 650 mg Documented by: Allopurinol (Zyloprim) 100 mg PO DAILY@1800 [facility] Last Admin: 06/06/20 17:22 Dose: 100 mg Documented by: Ascorbic Acid (Vitamin C) 500 mg PO Q24H [facility] Last Admin: 06/07/20 11:26 Dose: 500 mg Documented by: Aspirin (Halfprin) 81 mg PO [facility] Last Admin: 06/07/20 08:04 Dose: 81 mg Documented by: Atorvastatin Calcium (Lipitor) 10 mg PO 1800 [facility] Last Admin: 06/06/20 17:22 Dose: 10 mg Documented by: Bumetanide (Bumex) 1 mg PO [facility] Last Admin: 06/07/20 08:11 Dose: 1 mg Documented by: Calcitriol (Rocaltrol) 0.5 mcg PO [facility] Last Admin: 06/07/20 08:03 Dose: 0.5 mcg Documented by: Ferrous Sulfate (Ferrous Sulfate) 325 mg PO Q24H [facility] Last Admin: 06/07/20 11:26 Dose: 325 mg Documented by: Finasteride (Proscar) 5 mg PO [facility] Last Admin: 06/07/20 08:03 Dose: 5 mg Documented by: Levothyroxine Sodium (Levothyroxine) 25 mcg PO ACBREAKFAST [facility] Last Admin: 06/07/20 06:38 Dose: 25 mcg Documented by: Metoprolol Succinate (Toprol Xl) 75 mg PO [facility] Last Admin: 06/07/20 08:04 Dose: 75 mg Documented by: Sodium Chloride (Saline Flush) 10 ml FLUSH Q8HR PRN PRN Reason: keep vein open Last Admin: 06/06/20 06:33 Dose: 10 ml Documented by: Discontinued Medications Ferrous Sulfate (Ferrous Sulfate) 325 mg PO Q24H [facility] Last Admin: 06/05/20 22:25 Dose: Not Given Documented by: Metoprolol Succinate (Toprol Xl) 50 mg PO QAM [facility] Non-Formulary Medication (Ferrous Fumarate/Vitamin C [Vitron-C]) 1 tab PO BID [facility] Non-Formulary Medication (Insulin Degludec [Tresiba]) 10 unit SQ ACBREAKFAST [facility] Last Admin: 06/06/20 12:39 Dose: Not Given Documented by: - Exam General: Alert, Cooperative, No Acute Distress - Patient Data Result Diagrams: 06/07/20 07:10 06/07/20 07:10 Sepsis Event Note - Evaluation Sepsis Screening Result: No Definite Risk - Focused Exam Vital Signs: Vital Signs Temp Pulse Pulse Resp BP BP Pulse Ox 06/07/20 08:04 70 148/70 H 06/07/20 07:00 97.9 F 62 18 138/61 97 06/07/20 03:15 98.8 F 73 18 123/63 95 - Problem List Review Problem List Initiated/Reviewed/Updated: Yes - Plan Plan:: History summary 89-year-old gentleman that was admitted from an [facility] clinic last night into OBS status due to urinary retention/hematuria. Patient was seen and evaluated [facility] by this author yesterday when he been complaining of gross hematuria leaking of a urinary catheter and abdominal distention and unable to urinate in the catheter. 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 He was admitted into OBS status for CBI overnight Relative/pertinent recent history Patient presented to the [facility] ED secondary to inability to void. At that time his last urination prior to the ED visit was 6 hours prior and he felt like he needed to go but he couldn't. He did admit to some small clots in the urine and red tinged leading up to him going into the emergency room. He did admit to urinating quite well but noticed some hematuria and clots back in January 2020. His hemoglobin was 10.2, BUN 77, Creatinine 3.4, GFR 17; value which seems stable from previous. He had a Metcalf catheter placed to decompress the bladder. UA shows large amount of blood and also leukocyte esterase, protein and WBCs. A urine culture was done result showed no growth. He was given 1 g of Rocephin. He was instructed to notify [facility] to discuss with Jana Brush continuing antibiotic course and follow up for removal of catheter however provider was out due to illness. He presented to [place] ED on May 25 complaining of worsening renal function and episode of hematuria that morning. At that time he reported on inoperable renal mass with renal insufficiency which had worsened recently. Was seen and evaluated in outpatient clinic the day prior for rash and had evaluation for uremia in which his creatinine went from Baseline of 3-4 with GFR 14. He was complaining of one episode of hematuria prompting him to come to the ED that day. He denied passing any clots in the urine since was no significant change from his renal insufficiency and creatinine at that time he was diagnosed with a possible UTI and was discharged home for follow-up. CT abdomen and pelvis DOS 06/04/2020 1. Though precise measurements are somewhat challenging, the right renal mass that extends into the renal pelvis does appear to have increased in size from the previous exam. 2. Hyperdensity seen within the urinary bladder, likely blood clot. Metcalf catheter appropriately positioned. 3. Exophytic lesion of the left kidney now measuring higher density than a simple cyst. This demonstrated cystic attenuation on the January 25, 2020 exam. Probably hemorrhagic cyst. 4. Otherwise relatively stable findings in the abdomen and pelvis. Primary hospital problems --Retention with hematuria, secondary to neoplasm/renal mass, continue CBI until clear --Anemia, combination ACD/blood loss, hemoglobin 9.1 Chronic/stable problems Chronic kidney disease Coronary artery disease, with hx of CABG/stent, ASA s/p TAVR T2DM COPD, Secondary hyperparathyroidism. Macular degeneration. Gout Consultations --With urology [facility] 1 call, will continue with CBI, possible trial without catheter tomorrow Disposition/overall plan --Stop CBI and clamp catheter 0300 a.m. (timed) --We will discuss hospice --labs in am.
--- NOTE | 2020-06-14 09:22 | PCM.DCSUM1 ---
Discharge Summary - Discharge Data Discharge Date: 06/07/20 Discharge Disposition: DC/Tfer to Acute Hospital 02 Condition: Fair - Referral to Home Health Primary Care Physician: Jana Brush ADVERTISING OPERATIONS COORDINATOR - Discharge Plan Home Medications: Home Meds Bilberry 100 mg PO QAM 02/06/19 [History] Finasteride [Proscar] 5 mg PO QAM 02/06/19 [History] Metoprolol Succinate [Toprol XL 50mg] 50 mg PO QAM 02/06/19 [History] Metoprolol Succinate [Toprol XL] 25 mg PO QAM 02/06/19 [History] Multivit with Minerals/Lutein [Vision Plus Lutein Vitamin] 1 each PO QPM 02/06/19 [History] allopurinoL [Zyloprim] 100 mg PO DAILY@1800 02/06/19 [History] atorvaSTATin [Lipitor] 10 mg PO 1800 02/06/19 [History] calcitrioL [Rocaltrol] 0.5 mcg PO QAM 02/06/19 [History] Amoxicillin 2,000 mg PO ASDIRECTED 01/24/20 [History] Bumetanide [Bumex] 1 mg PO QAM 01/24/20 [History] Insulin Degludec [Tresiba] 20 unit SQ ACBREAKFAST 01/24/20 [History] Lancets [Microlet] 1 each MC ACBREAKFAST 01/24/20 [History] Levothyroxine 25 mcg PO ACBREAKFAST 01/24/20 [History] Aspirin [Aspirin EC] 81 mg PO QAM 06/03/20 [History] Ferrous Fumarate/Vitamin C [Vitron-C] 1 tab PO BID 06/05/20 [History] - Discharge Summary/Plan Comment DC Time >30 min.: Yes Discharge Summary/Plan Comment: Final diagnosis Acute urinary retention, Hematuria likely causing above Left renal mass CKD stage 4 History summary 89-year-old gentleman that was admitted from an outlying clinic last night into OBS status due to urinary retention/hematuria. Patient was seen and evaluated [facility] by this author yesterday when he been complaining of gross hematuria leaking of a urinary catheter and abdominal distention and unable to urinate in the catheter. 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 He was admitted into OBS status for CBI overnight Relative/pertinent recent history Patient presented to the [place] [facility] ED secondary to inability to void. At that time his last urination prior to the ED visit was 6 hours prior and he felt like he needed to go but he couldn't. He did admit to some small clots in the urine and red tinged leading up to him going into the emergency room. He did admit to urinating quite well but noticed some hematuria and clots back in January 2020. His hemoglobin was 10.2, BUN 77, Creatinine 3.4, GFR 17; value which seems stable from previous. He had a Metcalf catheter placed to decompress the bladder. UA shows large amount of blood and also leukocyte esterase, protein and WBCs. A urine culture was done result showed no growth. He was given 1 g of Rocephin. He was instructed to notify [facility] to discuss with Jana Gonsalo continuing antibiotic course and follow up for removal of catheter however provider was out due to illness. He presented to [place] ED on May 25 complaining of worsening renal function and episode of hematuria that morning. At that time he reported on inoperable renal mass with renal insufficiency which had worsened recently. Was seen and evaluated in outpatient clinic the day prior for rash and had evaluation for uremia in which his creatinine went from Baseline of 3-4 with GFR 14. He was complaining of one episode of hematuria prompting him to come to the ED that day. He denied passing any clots in the urine since was no significant change from his renal insufficiency and creatinine at that time he was diagnosed with a possible UTI and was discharged home for follow-up. CT abdomen and pelvis DOS 06/04/2020 1. Though precise measurements are somewhat challenging, the right renal mass that extends into the renal pelvis does appear to have increased in size from the previous exam. 2. Hyperdensity seen within the urinary bladder, likely blood clot. Metcalf catheter appropriately positioned. 3. Exophytic lesion of the left kidney now measuring higher density than a simple cyst. This demonstrated cystic attenuation on the January 25, 2020 exam. Probably hemorrhagic cyst. 4. Otherwise relatively stable findings in the abdomen and pelvis. - General Info Date of Service: 06/07/20 Functional Status: Reports: Pain Controlled, Tolerating Diet, Urinating (voiding via catherter). Denies: Ambulating - Review of Systems General: Reports: Weakness HEENT: Reports: No Symptoms Pulmonary: Reports: No Symptoms Cardiovascular: Reports: No Symptoms Gastrointestinal: Reports: No Symptoms Skin: Reports: Pallor Neurological: Reports: Difficulty Walking, Weakness Psychiatric: Reports: No Symptoms Physical exam Lungs, CTA Cardiac, RRR /GI, pink light champagne urine via Metcalf catheter continuous bladder irrigation no blood clots noted Consultations --After consultation with the family they had agreed since patient received status post TaVR that he may possibly be a surgical candidate for nephrectomy. They are interested in revisiting this option as they had previously been through peritoneal dialysis classes in the past in anticipation of this. Disposition Patient was transferred to [facility] via S for CBI ongoing for discussion with for possible nephrectomy - Patient Data Vitals - Most Recent: Last Vital Signs Temp 97.3 F 06/07/20 11:00 Pulse 73 06/07/20 11:00 Resp 18 06/07/20 11:00 BP 154/77 H 06/07/20 11:00 Pulse Ox 97 06/07/20 11:00 Weight - Most Recent: 200 lb 4.8 oz Med Orders - Current: Current Medications Discontinued Medications Acetaminophen (Tylenol) 650 mg PO Q6H PRN PRN Reason: Pain Last Admin: 06/07/20 11:26 Dose: 650 mg Documented by: Allopurinol (Zyloprim) 100 mg PO DAILY@1800 [facility] Last Admin: 06/06/20 17:22 Dose: 100 mg Documented by: Ascorbic Acid (Vitamin C) 500 mg PO Q24H [facility] Last Admin: 06/07/20 11:26 Dose: 500 mg Documented by: Aspirin (Halfprin) 81 mg PO [facility] Last Admin: 06/07/20 08:04 Dose: 81 mg Documented by: Atorvastatin Calcium (Lipitor) 10 mg PO 1800 [facility] Last Admin: 06/06/20 17:22 Dose: 10 mg Documented by: Bumetanide (Bumex) 1 mg PO [facility] Last Admin: 06/07/20 08:11 Dose: 1 mg Documented by: Calcitri[facility] (Rocaltrol) [facility] [place] [facility] Last Admin: 06/07/20 08:03 Dose: 0.5 mcg Documented by: Ferrous Sulfate (Ferrous Sulfate) 325 mg PO Q24H [facility] Last Admin: 02/16/21 22:25 Dose: Not Given Documented by: Ferrous Sulfate (Ferrous Sulfate) 325 mg PO Q24H [facility] Last Admin: 06/07/20 11:26 Dose: 325 mg Documented by: Finasteride (Proscar) [facility] [place] Last Admin: 06/07/20 08:03 Dose: 5 mg Documented by: Levothyroxine Sodium (Levothyroxine) [facility] Last Admin: 06/07/20 06:38 Dose: 25 mcg Documented by: Metoprolol Succinate (Toprol Xl) 75 mg PO [facility] Last Admin: 06/07/20 08:04 Dose: 75 mg Documented by: Metoprolol Succinate (Toprol Xl) 50 mg PO [facility] Non-Formulary Medication (Ferrous Fumarate/Vitamin C [Vitron-C]) 1 tab PO BID [facility] Non-Formulary Medication (Insulin Degludec [Tresiba]) [facility] Last Admin: 06/06/20 12:39 Dose: Not Given Documented by: Sodium Chloride (Saline Flush) 10 ml FLUSH Q8HR PRN PRN Reason: keep vein open Last Admin: 06/06/20 06:33 Dose: 10 ml Documented by:
== END 2020-06-07 14:50 ==
LOC: KA.MS 17:50
PROVIDERS: ADMIT Nurse Practitioner Family; ATTEND Family Medicine
DX: C65.1 Malignant neoplasm of right renal pelvis (principal); R31.0 Gross hematuria; R33.9 Retention of urine, unspecified; I13.0 Hypertensive heart and chronic kidney disease with heart failure and stage 1 through stage 4 chronic kidney disease, or unspecified chronic kidney disease; E11.22 Type 2 diabetes mellitus with diabetic chronic kidney disease; N18.4 Chronic kidney disease, stage 4 (severe); I50.32 Chronic diastolic (congestive) heart failure; D63.1 Anemia in chronic kidney disease; N25.81 Secondary hyperparathyroidism of renal origin; J44.9 Chronic obstructive pulmonary disease, unspecified; I25.10 Atherosclerotic heart disease of native coronary artery without angina pectoris; E66.9 Obesity, unspecified; Z20.822 Contact with and (suspected) exposure to COVID-19; E03.9 Hypothyroidism, unspecified; I65.22 Occlusion and stenosis of left carotid artery; M10.9 Gout, unspecified; Z95.1 Presence of aortocoronary bypass graft; Z95.5 Presence of coronary angioplasty implant and graft; Z79.82 Long term (current) use of aspirin; Z79.899 Other long term (current) drug therapy; Z79.4 Long term (current) use of insulin; Z88.4 Allergy status to anesthetic agent; Z88.8 Allergy status to other drugs, medicaments and biological substances; Z95.2 Presence of prosthetic heart valve; Z98.890 Other specified postprocedural states; Z68.30 Body mass index [BMI] 30.0-30.9, adult
CPT/HCPCS: 36415; 51702; 80048; 80053; 82962; 85027; A9270; G0378; U0002

== ENCOUNTER 2020-09-08 07:49 | Observation (INO) | payer MEDICARE, BC ==
--- NOTE | 2020-09-08 08:05 | EDM.PDOC ---
ED HPI GENERAL MEDICAL PROBLEM - General Chief Complaint: Genitourinary Problem Stated Complaint: CAN'T URINATE Time Seen by Provider: 09/08/20 08:04 Source of Information: Reports: Patient - History of Present Illness INITIAL COMMENTS - FREE TEXT/NARRATIVE: Noah, 89-year-old male, presents emergency department accompanied by his for urinary retention. States this started roughly 4 AM as he was unable to void. Well-known history of renal tumor as well as numerous polyps in the urinary bladder, bladder Ca. Hospitalized roughly 6 weeks ago and has been seen by urology for bladder scraping. Is scheduled for 30 September for another procedure for follow-up on bladder process. States things have been going well since the procedure and discharge from the hospital. Denies any other concerns or issues, denying constipation or any activity that may have warranted this acute urinary retention. Denies fever chills or COVID-19 symptoms. Is fully vaccinated at this time. Onset: Today Duration: Hour(s): Location: Reports: Pelvis Quality: Reports: Pressure Severity: Moderate Improves with: Reports: None Associated Symptoms: Reports: No Other Symptoms Lower Abdomen Pain Score (Numeric/FACES): 4 - Related Data Allergies Allergy/AdvReac Type Severity Reaction Status Date / Time losartan Allergy Mild Cough Verified 09/08/20 07:58 Home Meds: Home Meds Bilberry 100 mg PO QAM 02/06/19 [History] Finasteride [Proscar] 5 mg PO QAM 02/06/19 [History] Metoprolol Succinate [Toprol XL 50mg] 50 mg PO QAM 02/06/19 [History] Metoprolol Succinate [Toprol XL] 25 mg PO QAM 02/06/19 [History] Multivit with Minerals/Lutein [Vision Plus Lutein Vitamin] 1 each PO QPM 02/06/19 [History] allopurinoL [Zyloprim] 100 mg PO DAILY@1800 02/06/19 [History] atorvaSTATin [Lipitor] 10 mg PO 1800 02/06/19 [History] calcitrioL [Rocaltrol] 0.5 mcg PO QAM 02/06/19 [History] Amoxicillin 2,000 mg PO ASDIRECTED 01/24/20 [History] Bumetanide [Bumex] 1 mg PO QAM 01/24/20 [History] Insulin Degludec [Tresiba] 20 unit SQ ACBREAKFAST 01/24/20 [History] Lancets [Microlet] 1 each MC ACBREAKFAST 01/24/20 [History] Levothyroxine 25 mcg PO ACBREAKFAST 01/24/20 [History] Aspirin [Aspirin EC] 81 mg PO QAM 06/03/20 [History] Ferrous Fumarate/Vitamin C [Vitron-C] 1 tab PO BID 06/05/20 [History] Past Medical History - Past Health History Medical/Surgical History: Denies Medical/Surgical History HEENT History: Reports: Hard of Hearing, Impaired Vision, Macular Degeneration Cardiovascular History: Reports: Bypass, CAD, Heart Failure, Hypertension, Stents, Other (See Below) Other Cardiovascular History: valve replaced Feb 2019. aortic stenosis. stenosis of left carotid artery. severe aortic valve stenosis Respiratory History: Reports: None Gastrointestinal History: Reports: None Genitourinary History: Reports: Chronic Renal Insuffiency, Renal Disease, Retention, Urinary, Other (See Below) (Numerous bladder polyps recent scraping) Other Genitourinary History: hematuria. CKD stage 4, GFR 15-29. mass of right kidney Musculoskeletal History: Reports: Arthritis, Gout Neurological History: Reports: None Psychiatric History: Reports: None Endocrine/Metabolic History: Reports: Diabetes, Type II, Hyperparathyroidism, Hypothyroidism Other Endocrine/Metabolic History: hyperkalemia. fluid overload. secondary hyperparathyroidism of renal origin Hematologic History: Reports: Anemia Immunologic History: Reports: None Oncologic (Cancer) History: Reports: Malignant Melanoma Dermatologic History: Reports: Melanoma - Infectious Disease History Infectious Disease History: Reports: Mumps, Pertussis (Whooping Cough) - Past Surgical History Head Surgeries/Procedures: Reports: None HEENT Surgical History: Reports: None Cardiovascular Surgical History: Reports: Coronary Artery Bypass, Valve Replacement, Other (See Below) Other Cardiovascular Surgeries/Procedures: 3 stents done Jan 05, 2019 in [place] Respiratory Surgical History: Reports: None GI Surgical History: Reports: Colonoscopy Male Surgical History: Reports: Other (See Below) (Bladder scraping for polyp removal) Endocrine Surgical History: Reports: None Neurological Surgical History: Reports: Lumbar Spine Musculoskeletal Surgical History: Reports: Knee Replacement, Shoulder Surgery, Other (See Below) Other Musculoskeletal Surgeries/Procedures:: Back surgery (bone grafting from right leg) in 1949 Oncologic Surgical History: Reports: None Dermatological Surgical History: Reports: Skin Biopsy Social & Family History - Family History Family Medical History: No Pertinent Family History - Tobacco Use Tobacco Use Status *Q: Former Tobacco User - Caffeine Use Caffeine Use: Reports: Soda Other Caffeine Use: occasional pop, rare coffee - Living Situation & Occupation Living situation: Reports: Occupation: Retired ED ROS GENERAL - Review of Systems Review Of Systems: Comprehensive ROS is negative, except as noted in HPI. ED EXAM, GENERAL - Physical Exam Exam: See Below Free Text/Narrative:: Alert, oriented, cheerful in no distress. He is visually as well as hearing impaired which is of chronic status. HEENT is negative discharge or deformity. There is pink moist mucous membranes Neck is soft supple with no rigidity or lymphadenopathy. Thorax is clear with no wheezes nor crackles. Cardiac is regular Abdomen is soft bowel sounds are present there is no tenderness appreciated. No tenderness nor fullness over the urinary bladder. He is able to move his extremities with no difficulty. Metcalf catheter has been placed per nursing staff with ronel hematuria no clots or strands noted. Course - Vital Signs Last Recorded V/S: Last Vital Signs Temp 97.5 F 09/08/20 08:10 Pulse 82 09/08/20 08:10 Resp 18 09/08/20 08:10 BP 131/78 09/08/20 08:10 Pulse Ox - Orders/Labs/Meds Orders: Active Orders 24 hr Category Date Time Status Bladder Irrigation [RC] BID Care 09/08/20 09:19 Active Metcalf Catheter Insertion [Insert Urinary Catheter] [OM. Care 09/08/20 09:15 Ordered PC] Q24H Insert Metcalf Catheter [Insert Urinary Catheter] [OM.PC] Care 09/08/20 09:30 Ordered Q24H Peripheral IV Care [RC] . DIRECTED Care 09/08/20 09:49 Ordered Urinary Catheter Assessment [RC] ASDIRECTED Care 09/08/20 09:03 Active Urinary Catheter Assessment [RC] ASDIRECTED Care 09/08/20 09:23 Active CULTURE URINE [RM] Urgent Lab 09/08/20 08:15 Received Sodium Chloride 0.9% [Saline Flush] Med 09/08/20 09:49 Ordered 10 ml FLUSH Q8HR PRN Peripheral IV Insertion Adult [OM.PC] Routine Oth 09/08/20 09:49 Ordered Medication Orders Sodium Chloride (Sodium Chloride 0.9% 10 Ml Syringe) 10 ml FLUSH Q8HR PRN PRN Reason: keep vein open Labs: Laboratory Tests 09/08/20 09/08/20 09/08/20 Range/Units 08:15 09:10 09:10 WBC 5.48 (5.00-10.00) 10^3/uL RBC 3.09 L (4.50-6.00) 10^6/uL Hgb 10.2 L (13.0-17.0) g/dL Hct 29.8 L (40.0-52.0) % MCV 96.4 H (82.0-92.0) fL MCH 33.0 H (27.0-31.0) pg MCHC 34.2 (32.0-36.0) g/dL RDW 13.1 (11.5-14.5) % Plt Count 132 L (150-400) 10^3/uL MPV 9.9 (7.4-10.4) fL Immature Gran % (Auto) 0.4 (0.0-5.0) % Neut % (Auto) 66.7 (50.0-70.0) % Lymph % (Auto) 19.0 L (20.0-40.0) % [place] % (Auto) 8.6 H (2.0-8.0) % Eos % (Auto) 4.6 H (1.0-3.0) % Baso % (Auto) 0.7 (0.0-1.0) % Neut # (Auto) 3.66 (2.50-7.00) 10^3/uL Lymph # (Auto) 1.04 (1.00-4.00) 10^3/uL [place] # (Auto) 0.47 (0.10-0.80) 10^3/uL Eos # (Auto) 0.25 (0.10-0.30) 10^3/uL Baso # (Auto) 0.04 (0.00-0.10) 10^3/uL Immature Gran # (Auto) 0.02 (0.00-0.50) 10^3/uL Sodium 139 (136-145) mmol/L Potassium 4.4 (3.5-5.1) mmol/L Chloride 101 (98-107) mmol/L Carbon Dioxide 23.6 (21.0-32.0) mmol/L Anion Gap 18.8 H (5-15) mmol/L BUN 57 H* (7-18) mg/dL Creatinine 3.75 H (0.51-1.17) mg/dL Est Cr Clr Drug Dosing 13.17 mL/min Estimated GFR (MDRD) 15 mL/min Glucose 203 H (70-140) mg/dL Calcium 8.7 (8.7-10.3) mg/dL Total Bilirubin 0.3 (0.2-1.0) mg/dL AST 19 (15-37) U/L ALT 20 (14-63) U/L Alkaline Phosphatase 97 (46-116) U/L Total Protein 6.4 (6.4-8.2) g/dL Albumin 2.93 L (3.40-5.00) g/dL Specimen Type Urinfol Urine Color Red H (YELLOW) Urine Appearance Cloudy H (CLEAR) Urine pH 7.0 (5.0-9.0) Ur Specific [place] 1.020 (1.005-1.030) Urine Protein >=300 H (NEGATIVE) mg/dL Urine Glucose (UA) 100 H (NEGATIVE) mg/dL Urine Ketones 15 H (NEGATIVE) mg/dL Urine Occult Blood Large H (NEGATIVE) Urine Nitrite Positive H (NEGATIVE) Urine Bilirubin Moderate H (NEGATIVE) Urine Urobilinogen 1.0 (0.2-1.0) E.U./dL Ur Leukocyte Esterase Large H (NEGATIVE) Urine RBC >100 H (0-5) /HPF Urine WBC 0-5 (0-5) /HPF Ur Epithelial Cells Not seen /LPF Urine Bacteria Not seen (NONE TO FEW) /HPF Meds: Medications Generic Name Dose Route Start Last Admin Trade Name Freq PRN Reason Stop Dose Admin Sodium Chloride 10 ml 09/08/20 09:49 Sodium Chloride 0.9% 10 Ml Syringe FLUSH Q8HR PRN keep vein open Discontinued Medications Generic Name Dose Route Start Last Admin Trade Name Freq PRN Reason Stop Dose Admin Ceftriaxone Sodium 1 gm 09/08/20 09:50 Ceftriaxone 1 Gm Vial IVPUSH 09/08/20 09:51 ONETIME ONE - Re-Assessments/Exams Free Text/Narrative Re-Assessment/Exam: 09/08/20 08:26 Catheter draining nicely. states similar redness in the color since procedure. Urine sample obtained for laboratory analysis from the fresh catheter placement and gravity bag. 09/08/20 08:42 09/08/20 08:51 Metcalf catheter has clotted off and attempted irrigating has very limited outflow in getting adequate return. Continuing flushing at this time with limited return. Will obtain CBC and comprehensive panel as they may require admission or transfer secondary of obstructed urinary output. Three way catheter to be placed. 09/08/20 10:52 Free Text/Narrative Re-Assessment/Exam: 09/08/20 10:06 Unable to pass three-way irrigating catheter 26 [place] per nursing staff. In sterile fashion I attempted this catheter as well. There seems to be some form of stricture/constriction of the meatus in the distal posterior urethra that is minimally visible to the naked eye. Catheter hits and abrupt cessation at roughly 0.6 cm. Nursing staff was able to easily pass smaller catheter on the first attempt with a 16 that occluded. I was able to use a lighted jet and instill the syringe of lidocaine gel into the urethra with no difficulty. Unfortunately the only irrigating catheter we have is the larger 26. We will place a smaller catheter 20 fr. and manually irrigate and discuss admission versus transfer options with Dr. Dania Sewell. 100ml urine output with placement of catheter. Free Text/Narrative Re-Assessment/Exam: 09/08/20 10:33 [facility] contacted to discuss case. Dr. Kait Henry recommended admission here with irrigation as needed and if worsening concerns contact for possible transfer at that time. 09/08/20 11:21 Bladder irrigation to take place now as urine flow is stopped. Positioning of tubing reveals no flow with small clot noted. Departure - Departure Time of Disposition: 08:19 Disposition: Home, Self-Care 01 Condition: Good, Fair Clinical Impression: Obstructive uropathy, Bladder polyps, Acute retention of urine Hematuria Qualifiers: Hematuria type: gross Qualified Code(s): R31.0 - Gross hematuria - Discharge Information *PRESCRIPTION DRUG MONITORING PROGRAM REVIEWED*: Not Applicable *COPY OF PRESCRIPTION DRUG MONITORING REPORT IN PATIENT ALEXANDRE: Not Applicable Referrals: Jana Brush NP [Primary Care Provider] - Maria Del Carmen Sears MD [Physician] - Forms: ED Department Discharge Additional Instructions: We have placed an indwelling Metcalf catheter to gravity bag with immediate return of urine. This is been sent for evaluation and culture from the sample we originally obtained. Secondary of increased blood flow/cots and obstruction admission to observation status per [facility] Dr. Sears. Sepsis Event Note (ED) - Focused Exam Vital Signs: Vital Signs Temp Pulse Resp BP 09/08/20 08:10 97.5 F 82 18 131/78 ED Communication - ED Communication Date/Time Date: 09/08/20 Time Called: 10:15 - Discussed Case With (1) Discussed Case With (1): Admitting Provider, Outpatient Provider Person/s Notified (1): Maria Del Carmen Sears - Discussed Case With (2) Discussed Case With (2): Other Provider (Discuss with Dr Henry urologist. Feels manual irrigation through 20Fr is feasible and does not need transfer at this time.) - Problem List & Annotations (1) Bladder polyps SNOMED Code(s): 258322045 Code(s): D41.4 - NEOPLASM OF UNCERTAIN BEHAVIOR OF BLADDER Status: Chronic Priority: High Current Visit: Yes (2) Obstructive uropathy SNOMED Code(s): 3096554 Code(s): N13.9 - OBSTRUCTIVE AND REFLUX UROPATHY, UNSPECIFIED Status: Chronic Priority: High Current Visit: Yes (3) Retention of urine SNOMED Code(s): 843391800 Code(s): R33.9 - RETENTION OF URINE, UNSPECIFIED Status: Acute Priority: High Current Visit: No (4) Hematuria SNOMED Code(s): 24591497 Code(s): R31.9 - HEMATURIA, UNSPECIFIED Status: Acute Current Visit: Yes Qualifiers: Hematuria type: gross Qualified Code(s): R31.0 - Gross hematuria (5) Diabetes mellitus with stage 2 chronic kidney disease SNOMED Code(s): 26731692, 004632894 Code(s): E11.22 - TYPE 2 DIABETES MELLITUS W DIABETIC CHRONIC KIDNEY DISEASE; N18.2 - CHRONIC KIDNEY DISEASE, STAGE 2 (MILD) Status: Chronic Priority: High Current Visit: Yes (6) CKD (chronic kidney disease) stage 4, GFR 15-29 ml/min SNOMED Code(s): 362723805 Code(s): N18.4 - CHRONIC KIDNEY DISEASE, STAGE 4 (SEVERE) Status: Chronic Priority: High Current Visit: No Annotation/Comment:: Creatinine and BUN stable today in comparison to last [facility] lab. Cr slight improve. (7) Urethral stricture SNOMED Code(s): 04038696 Code(s): N35.919 - UNSPECIFIED URETHRAL STRICTURE, MALE, UNSPECIFIED SITE Status: Acute Priority: High Current Visit: Yes Qualifiers: Urethral stricture type: post-procedural (8) Urinary tract infection SNOMED Code(s): 10832815 Code(s): N39.0 - URINARY TRACT INFECTION, SITE NOT SPECIFIED Status: Acute Current Visit: No Qualifiers: Urinary tract infection type: acute cystitis Hematuria presence: with hematuria Qualified Code(s): N30.01 - Acute cystitis with hematuria (9) COVID-19 ruled out by laboratory testing SNOMED Code(s): 682091187315908218, 379728511484551341 Code(s): Z20.822 - CONTACT WITH AND (SUSPECTED) EXPOSURE TO COVID-19 Status: Acute Current Visit: Yes - Problem List Review Problem List Initiated/Reviewed/Updated: Yes - My Orders Last 24 Hours: My Active Orders 09/08/20 08:15 CULTURE URINE [RM] Urgent 09/08/20 09:03 Urinary Catheter Assessment [RC] ASDIRECTED 09/08/20 09:15 Metcalf Catheter Insertion [Insert Urinary Catheter] [OM.PC] Q24H 09/08/20 09:19 Bladder Irrigation [RC] BID 09/08/20 09:23 Urinary Catheter Assessment [RC] ASDIRECTED 09/08/20 09:30 Insert Metcalf Catheter [Insert Urinary Catheter] [OM.PC] Q24H 09/08/20 09:49 Peripheral IV Care [RC] . DIRECTED Sodium Chloride 0.9% [Saline Flush] 10 ml FLUSH Q8HR PRN Peripheral IV Insertion Adult [OM.PC] Routine - Assessment/Plan Last 24 Hours: My Active Orders 09/08/20 08:15 CULTURE URINE [RM] Urgent 09/08/20 09:03 Urinary Catheter Assessment [RC] ASDIRECTED 09/08/20 09:15 Metcalf Catheter Insertion [Insert Urinary Catheter] [OM.PC] Q24H 09/08/20 09:19 Bladder Irrigation [RC] BID 09/08/20 09:23 Urinary Catheter Assessment [RC] ASDIRECTED 09/08/20 09:30 Insert Metcalf Catheter [Insert Urinary Catheter] [OM.PC] Q24H 09/08/20 09:49 Peripheral IV Care [RC] . DIRECTED Sodium Chloride 0.9% [Saline Flush] 10 ml FLUSH Q8HR PRN Peripheral IV Insertion Adult [OM.PC] Routine Plan: We have placed an indwelling Metcalf catheter to gravity bag with immediate return of urine. This is been sent for evaluation and culture from the sample we originally obtained. Secondary of increased blood flow/cots and obstruction admission to observation status per Rolando Sears.
[2020-09-08 09:36] LABS: ANION GAP 18.8 mmol/L (5-15)
[2020-09-08] MEDS ORDERED: Sodium Chloride 0.9% 10 ML Syringe FLUSH PRN (09:49)
[2020-09-08] MEDS: cefTRIAXone 1 GM Vial IVPUSH ONE (10:29)
[2020-09-08] MEDS: Lidocaine 2% Jelly 5 ML Tube ONE (10:39)
--- NOTE | 2020-09-08 12:43 | PCM.HP.2 ---
H&P History of Present Illness - General Date of Service: 09/08/20 Admit Problem/Dx: Admission Diagnosis/Problem Admission Diagnosis/Problem Bladder outflow obstruction Source of Information: Patient, Old Records, RN Lower Abdomen Pain Score (Numeric/FACES): 4 - Related Data Allergies/Adverse Reactions: Allergies Allergy/AdvReac Type Severity Reaction Status Date / Time losartan Allergy Mild Cough Verified 09/08/20 07:58 Home Medications: Home Meds [place] 100 mg PO QAM 02/06/19 [History] Finasteride [Proscar] 5 mg PO QAM 02/06/19 [History] Metoprolol Succinate [Toprol XL 50mg] 50 mg PO QAM 02/06/19 [History] Metoprolol Succinate [Toprol XL] 25 mg PO QAM 02/06/19 [History] Multivit with Minerals/Lutein [Vision Plus Lutein Vitamin] 1 each PO QPM 02/06/19 [History] allopurinoL [Zyloprim] 100 mg PO DAILY@1800 02/06/19 [History] atorvaSTATin [Lipitor] 10 mg PO 1800 02/06/19 [History] calcitrioL [Rocaltrol] 0.5 mcg PO QAM 02/06/19 [History] Amoxicillin 2,000 mg PO ASDIRECTED 01/24/20 [History] Bumetanide [Bumex] 1 mg PO QAM 01/24/20 [History] Insulin Degludec [Tresiba] 20 unit SQ ACBREAKFAST 01/24/20 [History] Lancets [Microlet] 1 each MC ACBREAKFAST 01/24/20 [History] Levothyroxine 25 mcg PO ACBREAKFAST 01/24/20 [History] Aspirin [Aspirin EC] 81 mg PO QAM 06/03/20 [History] Ferrous Fumarate/Vitamin C [Vitron-C] 1 tab PO BID 06/05/20 [History] cefTRIAXone [Rocephin] 1 gm IVPUSH Q24H vial 09/08/20 [Rx] Past Medical History - Past Health History Medical/Surgical History: Denies Medical/Surgical History HEENT History: Reports: Hard of Hearing, Impaired Vision, Macular Degeneration Cardiovascular History: Reports: Bypass, CAD, Heart Failure, Hypertension, Stents, Other (See Below) Other Cardiovascular History: valve replaced Feb 2019. aortic stenosis. stenosis of left carotid artery. severe aortic valve stenosis Respiratory History: Reports: None Gastrointestinal History: Reports: None Genitourinary History: Reports: Chronic Renal Insuffiency, Renal Disease, Retention, Urinary, Other (See Below) Other Genitourinary History: hematuria. CKD stage 4, GFR 15-29. mass of right kidney Musculoskeletal History: Reports: Arthritis, Gout Neurological History: Reports: None Psychiatric History: Reports: None Endocrine/Metabolic History: Reports: Diabetes, Type II, Hyperparathyroidism, Hypothyroidism Other Endocrine/Metabolic History: hyperkalemia. fluid overload. secondary hyperparathyroidism of renal origin Hematologic History: Reports: Anemia Immunologic History: Reports: None Oncologic (Cancer) History: Reports: Malignant Melanoma Dermatologic History: Reports: Melanoma - Infectious Disease History Infectious Disease History: Reports: Mumps, Pertussis (Whooping Cough) - Past Surgical History Head Surgeries/Procedures: Reports: None HEENT Surgical History: Reports: None Cardiovascular Surgical History: Reports: Coronary Artery Bypass, Valve Replacement, Other (See Below) Other Cardiovascular Surgeries/Procedures: 3 stents done Jan 05, 2019 in [place] Respiratory Surgical History: Reports: None GI Surgical History: Reports: Colonoscopy Male Surgical History: Reports: Other (See Below) Endocrine Surgical History: Reports: None Neurological Surgical History: Reports: Lumbar Spine Musculoskeletal Surgical History: Reports: Knee Replacement, Shoulder Surgery, Other (See Below) Other Musculoskeletal Surgeries/Procedures:: Back surgery (bone grafting from right leg) in 1949 Oncologic Surgical History: Reports: None Dermatological Surgical History: Reports: Skin Biopsy Social & Family History - Family History Family Medical History: No Pertinent Family History - Tobacco Use Tobacco Use Status *Q: Former Tobacco User - Caffeine Use Caffeine Use: Reports: Coffee Other Caffeine Use: occasional pop, rare coffee - Recreational Drug Use Recreational Drug Use: No - Living Situation & Occupation Living situation: Reports: Occupation: Retired H&P Review of Systems - Review of Systems: Review Of Systems: See Below General: Reports: No Symptoms. Denies: Fever, Chills HEENT: Reports: No Symptoms Pulmonary: Reports: No Symptoms Cardiovascular: Reports: No Symptoms Gastrointestinal: Reports: No Symptoms Genitourinary: Reports: Hematuria, Retention, Other (inability to void) Musculoskeletal: Reports: No Symptoms Skin: Reports: No Symptoms Neurological: Reports: No Symptoms Hematologic/Lymphatic: Reports: No Symptoms Immunologic: Reports: No Symptoms Exam - Exam Exam: See Below - Vital Signs Vital Signs: Last Vital Signs Temp 96.4 F L 09/08/20 11:45 Pulse 79 09/08/20 11:45 Resp 18 09/08/20 11:45 BP 159/77 H 09/08/20 11:45 Pulse Ox 98 09/08/20 11:45 Weight: 200 lb - Exam Quality Assessment: No: Supplemental Oxygen General: Alert, Oriented, Cooperative, Mild Distress (urinary pressure) HEENT: Conjunctiva Clear, Mucosa Moist & [place] Neck: Supple, Trachea Midline Lungs: Clear to Auscultation, Normal Respiratory Effort, Decreased Breath Sounds Cardiovascular: Regular Rate, Regular Rhythm GI/Abdominal Exam: Normal Bowel Sounds, Soft, Non-Tender (Male) Exam: Circumcised, Other (urinary catheter in place, gross hematuria leaking around catheter) Rectal (Males) Exam: Deferred Skin: Warm, Dry, Intact Neuro Extensive - Mental Status: Alert, Oriented x3, Normal Mood/Affect Psychiatric: Alert, Normal Affect, Normal Mood - Patient Data Lab Results Last 24 hrs: Laboratory Results - last 24 hr 09/08/20 09/08/20 09/08/20 Range/Units 08:15 09:10 09:10 WBC 5.48 (5.00-10.00) 10^3/uL RBC 3.09 L (4.50-6.00) 10^6/uL Hgb 10.2 L (13.0-17.0) g/dL Hct 29.8 L (40.0-52.0) % MCV 96.4 H (82.0-92.0) fL MCH 33.0 H (27.0-31.0) pg MCHC 34.2 (32.0-36.0) g/dL RDW 13.1 (11.5-14.5) % Plt Count 132 L (150-400) 10^3/uL MPV 9.9 (7.4-10.4) fL Immature Gran % (Auto) 0.4 (0.0-5.0) % Neut % (Auto) 66.7 (50.0-70.0) % Lymph % (Auto) 19.0 L (20.0-40.0) % [place] % (Auto) 8.6 H (2.0-8.0) % Eos % (Auto) 4.6 H (1.0-3.0) % Baso % (Auto) 0.7 (0.0-1.0) % Neut # (Auto) 3.66 (2.50-7.00) 10^3/uL Lymph # (Auto) 1.04 (1.00-4.00) 10^3/uL [place] # (Auto) 0.47 (0.10-0.80) 10^3/uL Eos # (Auto) 0.25 (0.10-0.30) 10^3/uL Baso # (Auto) 0.04 (0.00-0.10) 10^3/uL Immature Gran # (Auto) 0.02 (0.00-0.50) 10^3/uL Sodium 139 (136-145) mmol/L Potassium 4.4 (3.5-5.1) mmol/L Chloride 101 (98-107) mmol/L Carbon Dioxide 23.6 (21.0-32.0) mmol/L Anion Gap 18.8 H (5-15) mmol/L BUN 57 H* (7-18) mg/dL Creatinine 3.75 H (0.51-1.17) mg/dL Est Cr Clr Drug Dosing 13.17 mL/min Estimated GFR (MDRD) 15 mL/min Glucose 203 H (70-140) mg/dL Calcium 8.7 (8.7-10.3) mg/dL Total Bilirubin 0.3 (0.2-1.0) mg/dL AST 19 (15-37) U/L ALT 20 (14-63) U/L Alkaline Phosphatase 97 (46-116) U/L Total Protein 6.4 (6.4-8.2) g/dL Albumin 2.93 L (3.40-5.00) g/dL Specimen Type Urinfol Urine Color Red H (YELLOW) Urine Appearance Cloudy H (CLEAR) Urine pH 7.0 (5.0-9.0) Ur Specific [place] 1.020 (1.005-1.030) Urine Protein >=300 H (NEGATIVE) mg/dL Urine Glucose (UA) 100 H (NEGATIVE) mg/dL Urine Ketones 15 H (NEGATIVE) mg/dL Urine Occult Blood Large H (NEGATIVE) Urine Nitrite Positive H (NEGATIVE) Urine Bilirubin Moderate H (NEGATIVE) Urine Urobilinogen 1.0 (0.2-1.0) E.U./dL Ur Leukocyte Esterase Large H (NEGATIVE) Urine RBC >100 H (0-5) /HPF Urine WBC 0-5 (0-5) /HPF Ur Epithelial Cells Not seen /LPF Urine Bacteria Not seen (NONE TO FEW) /HPF SARS CoV-2 RNA Rapid ANGELINA (NEGATIVE) 09/08/20 Range/Units 10:42 WBC (5.00-10.00) 10^3/uL RBC (4.50-6.00) 10^6/uL Hgb (13.0-17.0) g/dL Hct (40.0-52.0) % MCV (82.0-92.0) fL MCH (27.0-31.0) pg MCHC (32.0-36.0) g/dL RDW (11.5-14.5) % Plt Count (150-400) 10^3/uL MPV (7.4-10.4) fL Immature Gran % (Auto) (0.0-5.0) % Neut % (Auto) (50.0-70.0) % Lymph % (Auto) (20.0-40.0) % [place] % (Auto) (2.0-8.0) % Eos % (Auto) (1.0-3.0) % Baso % (Auto) (0.0-1.0) % Neut # (Auto) (2.50-7.00) 10^3/uL Lymph # (Auto) (1.00-4.00) 10^3/uL [place] # (Auto) (0.10-0.80) 10^3/uL Eos # (Auto) (0.10-0.30) 10^3/uL Baso # (Auto) (0.00-0.10) 10^3/uL Immature Gran # (Auto) (0.00-0.50) 10^3/uL Sodium (136-145) mmol/L Potassium (3.5-5.1) mmol/L Chloride (98-107) mmol/L Carbon Dioxide (21.0-32.0) mmol/L Anion Gap (5-15) mmol/L BUN (7-18) mg/dL Creatinine (0.51-1.17) mg/dL Est Cr Clr Drug Dosing mL/min Estimated GFR (MDRD) mL/min Glucose (70-140) mg/dL Calcium (8.7-10.3) mg/dL Total Bilirubin (0.2-1.0) mg/dL AST (15-37) U/L ALT (14-63) U/L Alkaline Phosphatase (46-116) U/L Total Protein (6.4-8.2) g/dL Albumin (3.40-5.00) g/dL Specimen Type Urine Color (YELLOW) Urine Appearance (CLEAR) Urine pH (5.0-9.0) Ur Specific [place] (1.005-1.030) Urine Protein (NEGATIVE) mg/dL Urine Glucose (UA) (NEGATIVE) mg/dL Urine Ketones (NEGATIVE) mg/dL Urine Occult Blood (NEGATIVE) Urine Nitrite (NEGATIVE) Urine Bilirubin (NEGATIVE) Urine Urobilinogen (0.2-1.0) E.U./dL Ur Leukocyte Esterase (NEGATIVE) Urine RBC (0-5) /HPF Urine WBC (0-5) /HPF Ur Epithelial Cells /LPF Urine Bacteria (NONE TO FEW) /HPF SARS CoV-2 RNA Rapid ANGELINA Negative (NEGATIVE) Result Diagrams: 09/08/20 09:10 09/08/20 09:10 Sepsis Event Note - Evaluation Sepsis Screening Result: No Definite Risk - Focused Exam Vital Signs: Vital Signs Temp Pulse Resp BP Pulse Ox 09/08/20 11:45 96.4 F L 79 18 159/77 H 98 09/08/20 10:57 75 18 134/75 97 09/08/20 10:00 76 20 174/93 H 96 09/08/20 09:45 77 18 174/94 H 98 09/08/20 09:30 79 18 168/90 H 98 09/08/20 09:15 80 20 129/84 98 09/08/20 08:10 97.5 F 82 18 131/78 Problem List Initiated/Reviewed/Updated: Yes Orders Last 24hrs: Active Orders 24 hr Category Date Time Status Patient Status [ADT] Routine ADT 09/08/20 10:38 Active Bladder Irrigation [RC] CONTINUOUS Care 09/08/20 09:19 Active Communication Order [RC] ROUTINE Care 09/08/20 10:57 Active Shaw Catheter Insertion [Insert Urinary Catheter] [OM. Care 09/08/20 09:15 Ordered PC] Q24H Insert Shaw Catheter [Insert Urinary Catheter] [OM.PC] Care 09/08/20 09:30 Ordered Q24H Intake and Output [RC] QSHIFT Care 09/08/20 10:58 Active Peripheral IV Care [RC] . DIRECTED Care 09/08/20 09:49 Active Up With Assistance [RC] ASDIRECTED Care 09/08/20 10:57 Active Urinary Catheter Assessment [RC] ASDIRECTED Care 09/08/20 09:03 Active Urinary Catheter Assessment [RC] ASDIRECTED Care 09/08/20 09:23 Active VTE/DVT Education [RC] PER UNIT ROUTINE Care 09/08/20 10:57 Active Vital Signs [RC] Q4H Care 09/08/20 10:57 Active Regular Diet [DIET] Diet 09/08/20 Lunch Active BASIC METABOLIC PANEL,BMP [CHEM] AM Lab 09/09/20 05:11 Ordered CBC WITH AUTO DIFF [HEME] AM Lab 09/09/20 05:11 Ordered CULTURE URINE [RM] Urgent Lab 09/08/20 08:15 Received Aspirin [Halfprin] Med 09/09/20 09:00 Active 81 mg PO QAM Bumetanide [Bumex] Med 09/09/20 09:00 Active 1 mg PO QAM FA/Lycopene/Lut/MV,Ca,Iron,Min [Centrum] Med 09/08/20 21:00 Active 1 tab PO QPM Ferrous Fumarate/Vitamin C [Vitron-C] Med 09/08/20 21:00 Pending 1 tab PO BID Finasteride [Proscar] Med 09/09/20 09:00 Active 5 mg PO QAM Insulin Glarg,Human.Rec.Analog [LantUS Solostar] Med 09/09/20 07:30 Active 20 units SUBCUT ACBREAKFAST Levothyroxine Med 09/09/20 07:30 Active 25 mcg PO ACBREAKFAST Metoprolol Succinate [Toprol XL] Med 09/09/20 09:00 Active 25 mg PO QAM Metoprolol Succinate [Toprol XL] Med 09/09/20 09:00 Active 50 mg PO QAM Sodium Chloride 0.9% [Saline Flush] Med 09/08/20 09:49 Active 10 ml FLUSH Q8HR PRN allopurinoL [Zyloprim] Med 09/08/20 18:00 Active 100 mg PO DAILY@1800 atorvaSTATin [Lipitor] Med 09/08/20 18:00 Active 10 mg PO 1800 calcitrioL [Rocaltrol] Med 09/09/20 09:00 Active 0.5 mcg PO QAM cefTRIAXone [Rocephin] Med 09/09/20 11:00 Active 1 gm IVPUSH Q24H Peripheral IV Insertion Adult [OM.PC] Routine Oth 09/08/20 09:49 Ordered Resuscitation Status Routine Resus Stat 09/08/20 10:57 Ordered Medication Orders Allopurinol (Allopurinol 100 Mg Tab) 100 mg PO DAILY@1800 TANYA Aspirin (Aspirin 81 Mg Tab.Ec) 81 mg PO QAM TANYA Atorvastatin Calcium (Atorvastatin 10 Mg Tab) 10 mg PO 1800 TANYA Bumetanide (Bumetanide 1 Mg Tab) 1 mg PO QAM TANYA Calcitriol (Calcitriol 0.25 Mcg Cap) 0.5 mcg PO QAM TANYA Ceftriaxone Sodium (Ceftriaxone 1 Gm Vial) 1 gm IVPUSH Q24H TANYA Finasteride (Finasteride 5 Mg Tab) 5 mg PO QAM TANYA Insulin Glargine (Insulin Glargine,Human Rec. Analog 100 Units/Ml 3 Ml Pen) 20 units SUBCUT ACBREAKFAST TANYA Levothyroxine Sodium (Levothyroxine 25 Mcg Tab) 25 mcg PO ACBREAKFAST TANYA Metoprolol Succinate (Metoprolol Succinate 50 Mg Tab.Er) 50 mg PO QAM TANYA Metoprolol Succinate (Metoprolol Succinate 25 Mg Tab.Er) 25 mg PO QAM [facility] Multivitamins/Minerals (Multivitamins With Minerals/Iron/Folic Acid/Lycopene Tab) 1 tab PO QPM TANYA Non-Formulary Medication (Ferrous Fumarate/Vitamin C [Vitron-C]) 1 tab PO BID TANYA Sodium Chloride (Sodium Chloride 0.9% 10 Ml Syringe) 10 ml FLUSH Q8HR PRN PRN Reason: keep vein open Assessment/Plan Comment:: HPI: Mr Howard is an 89y M who presented to the ER this morning after 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 He denies fever and chills. No other concerns. 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 Patient was seen for follow-up by urology on 08/16/20 and had clear urine at that time. ED Course: Shaw catheter 20fr was placed on the third attempt at catheter placement after a 24fr three way catheter and a 22fr catheter placement was unsuccessful with associated use of a urojet. Cath urine specimen notable for red, cloudy urine with large blood, numerous clots, large leukocyte esterase and positive nitrites. Blood pressure initially rather elevated upon arrival and while attempts at urinary catheters was attempted. Blood pressure normalized after placement. WBC normal at 5.48, Hgb 10.2, platelets 132. Na 139, K 4.4, BUN 57, Creatinine 3.75 (baseline 3.5-4.0). Rocephin 1g dose was initiated tin ER for suspected UTI, urine culture pending. ER provider called one call urology service, Dr Henry who recommended manual flushing of the 20fr shaw catheter to facilitate flow of urine through the catheter. Patient was admitted on observation status for catheter care and monitoring as well as repeat labs due to gross hematuria. Hospital Course: 09/09/20 - Shaw was irrigated upon admission with saline irrigation by nursing. Catheter was initially flushing and draining well, however after an hour there was significant resistance with flushing and attempts at irrigation failed. Gross, bloody hematuria was noted to be leaking from around the catheter with irrigation attempts. Patient complained of increased pressure and pain to the bladder. Second call to one call placed per myself to discuss case further with Dr Henry with urology. Dr Henry recommended replacing the current catheter with another 20fr catheter to relieve bladder pressure and pain and recommended that given failed manual irrigation through the 20fr catheter, that patient be transfered to [facility] and admitted to medicine. Case discussed with hospitalist, Dr Garcia who accepted patient to hospitalist service for further management. 20fr catheter replaced with another of the same size with 500ml urinary return of grossly bloody urine and several small clots. Nursing noted new catheter started to form clots after the new catheter was placed. Primary hospital problems and plan: # Urinary retention - urinary catheter in place; 20fr with manual irrigation PRN # Acute cystitis - Urine culture pending, Continue 1g rocephin daily for UTI # Gross hematuria - Hgb 10.2 in ER today, repeat CBC in am # Chronic kidney disease, stage 4-5 (baseline creatinine 3.5-4.0) - Creatinine 3.75, BUN 57. Repeat BMP in am. Chronic, stable conditions: # Coronary artery disease involving cahto heart without angina pectoris, unspecified vessel or lesion type # Chronic kidney disease, stage 4-5 # Essential hypertension, benign # S/P CABG x 3 # S/P coronary artery stent placement # Chronic diastolic CHF # Stenosis of left carotid artery # Chronic obstructive pulmonary disease, unspecified COPD type # Chronic gout without tophus, unspecified cause, unspecified site # Hypothyroidism (acquired) # Obesity with body mass index of 30.0-39.9 # Secondary hyperparathyroidism of renal origin # Type 2 diabetes mellitus with stage 4 chronic kidney disease, with long-term current use of insulin # Anemia due to stage 4 chronic kidney disease # Bladder tumors # Gross hematuria # Carcinoma of R renal pelvis # Macular degeneration (senile) of retina # Pedal edema Hospitalization details: # FEN: Saline lock, Regular diet. # PPX: None. # Code status: FULL CODE # Disposition: Patient admitted to [facility] under observation status and subsequently transferred to [facility] for higher level of care. Same day admission and discharge, this note to be used as H&P and discharge summary.
--- NOTE | 2020-09-08 13:43 | PCM.DCSUM1 ---
Discharge Summary - Hospital Course Free Text/Narrative:: Same day admission and discharge - see H&P. Patient to be transported by [facility] to [facility] once a room number has been assigned. Patient's , Sekou has been updated of plan of care and anticipated discharge to [place]. - Discharge Data Discharge Date: 09/08/20 Discharge Disposition: DC/Tfer to Acute Hospital 02 Condition: Good - Referral to Home Health Primary Care Physician: Jana Brush NP - Discharge Plan *PRESCRIPTION DRUG MONITORING PROGRAM REVIEWED*: Not Applicable *COPY OF PRESCRIPTION DRUG MONITORING REPORT IN PATIENT ALEXANDRE: Not Applicable Home Medications: Home Meds Bilberry 100 mg PO QAM 02/06/19 [History] Finasteride [Proscar] 5 mg PO QAM 02/06/19 [History] Metoprolol Succinate [Toprol XL 50mg] 50 mg PO QAM 02/06/19 [History] Metoprolol Succinate [Toprol XL] 25 mg PO QAM 02/06/19 [History] Multivit with Minerals/Lutein [Vision Plus Lutein Vitamin] 1 each PO QPM 02/06/19 [History] allopurinoL [Zyloprim] 100 mg PO DAILY@1800 02/06/19 [History] atorvaSTATin [Lipitor] 10 mg PO 1800 02/06/19 [History] calcitrioL [Rocaltrol] 0.5 mcg PO QAM 02/06/19 [History] Amoxicillin 2,000 mg PO ASDIRECTED 01/24/20 [History] Bumetanide [Bumex] 1 mg PO QAM 01/24/20 [History] Insulin Degludec [Tresiba] 20 unit SQ ACBREAKFAST 01/24/20 [History] Lancets [Microlet] 1 each MC ACBREAKFAST 01/24/20 [History] Levothyroxine 25 mcg PO ACBREAKFAST 01/24/20 [History] Aspirin [Aspirin EC] 81 mg PO QAM 06/03/20 [History] Ferrous Fumarate/Vitamin C [Vitron-C] 1 tab PO BID 06/05/20 [History] cefTRIAXone [Rocephin] 1 gm IVPUSH Q24H vial 09/08/20 [Rx] Oxygen Therapy Mode: Room Air Referrals: Jana Brush NP [Primary Care Provider] - Maria Del Carmen Sears MD [Physician] - - Discharge Summary/Plan Comment DC Time >30 min.: Yes - General Info Functional Status: Denies: Pain Controlled (bladder pressure from urinary retention) - Review of Systems General: Denies: Fever, Weakness HEENT: Reports: No Symptoms Pulmonary: Reports: No Symptoms Cardiovascular: Reports: No Symptoms Gastrointestinal: Reports: No Symptoms Genitourinary: Reports: Hematuria, Retention Musculoskeletal: Reports: No Symptoms Skin: Reports: No Symptoms Neurological: Reports: No Symptoms Psychiatric: Reports: No Symptoms - Patient Data Vitals - Most Recent: Last Vital Signs Temp 96.4 F L 09/08/20 11:45 Pulse 79 09/08/20 11:45 Resp 18 09/08/20 11:45 BP 159/77 H 09/08/20 11:45 Pulse Ox 98 09/08/20 11:45 Weight - Most Recent: 200 lb I&O - Last 24 hours: Intake & Output 09/07/20 09/08/20 09/08/20 22:59 06:59 14:59 Intake Total 200 Output Total Balance 21V Lab Results - Last 24 hrs: Laboratory Results - last 24 hr 09/08/20 09/08/20 09/08/20 Range/Units 08:15 09:10 09:10 WBC 5.48 (5.00-10.00) 10^3/uL RBC 3.09 L (4.50-6.00) 10^6/uL Hgb 10.2 L (13.0-17.0) g/dL Hct 29.8 L (40.0-52.0) % MCV 96.4 H (82.0-92.0) fL MCH 33.0 H (27.0-31.0) pg MCHC 34.2 (32.0-36.0) g/dL RDW 13.1 (11.5-14.5) % Plt Count 132 L (150-400) 10^3/uL MPV 9.9 (7.4-10.4) fL Immature Gran % (Auto) 0.4 (0.0-5.0) % Neut % (Auto) 66.7 (50.0-70.0) % Lymph % (Auto) 19.0 L (20.0-40.0) % [place] % (Auto) 8.6 H (2.0-8.0) % Eos % (Auto) 4.6 H (1.0-3.0) % Baso % (Auto) 0.7 (0.0-1.0) % Neut # (Auto) 3.66 (2.50-7.00) 10^3/uL Lymph # (Auto) 1.04 (1.00-4.00) 10^3/uL [place] # (Auto) 0.47 (0.10-0.80) 10^3/uL Eos # (Auto) 0.25 (0.10-0.30) 10^3/uL Baso # (Auto) 0.04 (0.00-0.10) 10^3/uL Immature Gran # (Auto) 0.02 (0.00-0.50) 10^3/uL Sodium 139 (136-145) mmol/L Potassium 4.4 (3.5-5.1) mmol/L Chloride 101 (98-107) mmol/L Carbon Dioxide 23.6 (21.0-32.0) mmol/L Anion Gap 18.8 H (5-15) mmol/L BUN 57 H* (7-18) mg/dL Creatinine 3.75 H (0.51-1.17) mg/dL Est Cr Clr Drug Dosing 13.17 mL/min Estimated GFR (MDRD) 15 mL/min Glucose 203 H (70-140) mg/dL Calcium 8.7 (8.7-10.3) mg/dL Total Bilirubin 0.3 (0.2-1.0) mg/dL AST 19 (15-37) U/L ALT 20 (14-63) U/L Alkaline Phosphatase 97 (46-116) U/L Total Protein 6.4 (6.4-8.2) g/dL Albumin 2.93 L (3.40-5.00) g/dL Specimen Type Urinfol Urine Color Red H (YELLOW) Urine Appearance Cloudy H (CLEAR) Urine pH 7.0 (5.0-9.0) Ur Specific [place] 1.020 (1.005-1.030) Urine Protein >=300 H (NEGATIVE) mg/dL Urine Glucose (UA) 100 H (NEGATIVE) mg/dL Urine Ketones 15 H (NEGATIVE) mg/dL Urine Occult Blood Large H (NEGATIVE) Urine Nitrite Positive H (NEGATIVE) Urine Bilirubin Moderate H (NEGATIVE) Urine Urobilinogen 1.0 (0.2-1.0) E.U./dL Ur Leukocyte Esterase Large H (NEGATIVE) Urine RBC >100 H (0-5) /HPF Urine WBC 0-5 (0-5) /HPF Ur Epithelial Cells Not seen /LPF Urine Bacteria Not seen (NONE TO FEW) /HPF SARS CoV-2 RNA Rapid ANGELINA (NEGATIVE) 09/08/20 Range/Units 10:42 WBC (5.00-10.00) 10^3/uL RBC (4.50-6.00) 10^6/uL Hgb (13.0-17.0) g/dL Hct (40.0-52.0) % MCV (82.0-92.0) fL MCH (27.0-31.0) pg MCHC (32.0-36.0) g/dL RDW (11.5-14.5) % Plt Count (150-400) 10^3/uL MPV (7.4-10.4) fL Immature Gran % (Auto) (0.0-5.0) % Neut % (Auto) (50.0-70.0) % Lymph % (Auto) (20.0-40.0) % [place] % (Auto) (2.0-8.0) % Eos % (Auto) (1.0-3.0) % Baso % (Auto) (0.0-1.0) % Neut # (Auto) (2.50-7.00) 10^3/uL Lymph # (Auto) (1.00-4.00) 10^3/uL [place] # (Auto) (0.10-0.80) 10^3/uL Eos # (Auto) (0.10-0.30) 10^3/uL Baso # (Auto) (0.00-0.10) 10^3/uL Immature Gran # (Auto) (0.00-0.50) 10^3/uL Sodium (136-145) mmol/L Potassium (3.5-5.1) mmol/L Chloride (98-107) mmol/L Carbon Dioxide (21.0-32.0) mmol/L Anion Gap (5-15) mmol/L BUN (7-18) mg/dL Creatinine (0.51-1.17) mg/dL Est Cr Clr Drug Dosing mL/min Estimated GFR (MDRD) mL/min Glucose (70-140) mg/dL Calcium (8.7-10.3) mg/dL Total Bilirubin (0.2-1.0) mg/dL AST (15-37) U/L ALT (14-63) U/L Alkaline Phosphatase (46-116) U/L Total Protein (6.4-8.2) g/dL Albumin (3.40-5.00) g/dL Specimen Type Urine Color (YELLOW) Urine Appearance (CLEAR) Urine pH (5.0-9.0) Ur Specific [place] (1.005-1.030) Urine Protein (NEGATIVE) mg/dL Urine Glucose (UA) (NEGATIVE) mg/dL Urine Ketones (NEGATIVE) mg/dL Urine Occult Blood (NEGATIVE) Urine Nitrite (NEGATIVE) Urine Bilirubin (NEGATIVE) Urine Urobilinogen (0.2-1.0) E.U./dL Ur Leukocyte Esterase (NEGATIVE) Urine RBC (0-5) /HPF Urine WBC (0-5) /HPF Ur Epithelial Cells /LPF Urine Bacteria (NONE TO FEW) /HPF SARS CoV-2 RNA Rapid ANGELINA Negative (NEGATIVE) Med Orders - Current: Current Medications Allopurinol (Allopurinol 100 Mg Tab) 100 mg PO DAILY@1800 [facility] Aspirin (Aspirin 81 Mg Tab.Ec) 81 mg PO QAM [facility] Atorvastatin Calcium (Atorvastatin 10 Mg Tab) 10 mg PO 1800 [facility] Bumetanide (Bumetanide 1 Mg Tab) 1 mg PO QAM [facility] Calcitriol (Calcitriol 0.25 Mcg Cap) 0.5 mcg PO QAM [facility] Ceftriaxone Sodium (Ceftriaxone 1 Gm Vial) 1 gm IVPUSH Q24H [facility] Finasteride (Finasteride 5 Mg Tab) 5 mg PO QAM [facility] Insulin Glargine (Insulin Glargine,Human Rec. Analog 100 Units/Ml 3 Ml Pen) 20 units SUBCUT ACBREAKFAST [facility] Levothyroxine Sodium (Levothyroxine 25 Mcg Tab) 25 mcg PO ACBREAKFAST [facility] Metoprolol Succinate (Metoprolol Succinate 50 Mg Tab.Er) 50 mg PO QAM [facility] Metoprolol Succinate (Metoprolol Succinate 25 Mg Tab.Er) 25 mg PO QAM [facility] Multivitamins/Minerals (Multivitamins With Minerals/Iron/Folic Acid/Lycopene Tab) 1 tab PO QPM TANYA Non-Formulary Medication (Ferrous Fumarate/Vitamin C [Vitron-C]) 1 tab PO BID TANYA Sodium Chloride (Sodium Chloride 0.9% 10 Ml Syringe) 10 ml FLUSH Q8HR PRN PRN Reason: keep vein open Discontinued Medications Ceftriaxone Sodium (Ceftriaxone 1 Gm Vial) 1 gm IVPUSH ONETIME ONE Stop: 09/08/20 09:51 Last Admin: 09/08/20 10:29 Dose: 1 gm Documented by: Lidocaine HCl (Lidocaine 2% Jelly 5 Ml Tube) Confirm Administered Dose 5 ml .ROUTE .STK-MED ONE Stop: 09/08/20 10:01 Last Admin: 09/08/20 10:39 Dose: 5 ml Documented by: - Exam Quality Assessment: Reports: Urine Catheter. Denies: Supplemental Oxygen General: Reports: Alert, Oriented, Cooperative, Mild Distress HEENT: Reports: Pupils Equal, Pupils Reactive, Mucous Membr. Moist/[place] Neck: Reports: Supple Lungs: Reports: Clear to Auscultation, Normal Respiratory Effort Cardiovascular: Reports: Regular Rate, Regular Rhythm, Murmurs GI/Abdominal Exam: Normal Bowel Sounds, Soft, Non-Tender, No Distention (Male) Exam: Circumcised Rectal (Males) Exam: Deferred Extremities: Normal Inspection, Non-Tender, No Pedal Edema Skin: Reports: Warm, Dry, Intact Neurological: Reports: No New Focal Deficit Psy/Mental Status: Reports: Alert, Normal Mood, Anxious
[2020-09-08] MEDS ORDERED: atorvaSTATin 10 MG Tab PO SCH (18:00)
[2020-09-08] MEDS ORDERED: Allopurinol 100 MG Tab PO SCH (18:00)
[2020-09-08] MEDS ORDERED: Multivitamins with Minerals/Iron/Folic Acid/Lycopene Tab PO SCH (21:00)
[2020-09-08] MEDS ORDERED: Non-Formulary Medication 1 Each (Ferrous Fumarate/Vitamin C [Vitron-C] 1 TAB Tablet) PO SCH (21:00)
[2020-09-09] MEDS ORDERED: Levothyroxine 25 MCG Tab PO SCH (07:30)
[2020-09-09] MEDS ORDERED: Insulin Glargine,Human Rec. Analog 100 Units/ML 3 ML Pen SUBCUT SCH (07:30)
[2020-09-09] MEDS ORDERED: Calcitriol 0.25 MCG Cap PO SCH (09:00)
[2020-09-09] MEDS ORDERED: Metoprolol Succinate 25 MG Tab.ER PO SCH (09:00)
[2020-09-09] MEDS ORDERED: Aspirin 81 MG Tab.EC PO SCH (09:00)
[2020-09-09] MEDS ORDERED: Finasteride 5 MG Tab PO SCH (09:00)
[2020-09-09] MEDS ORDERED: Bumetanide 1 MG Tab PO SCH (09:00)
[2020-09-09] MEDS ORDERED: Metoprolol Succinate 50 MG Tab.ER PO SCH (09:00)
[2020-09-09] MEDS ORDERED: cefTRIAXone 1 GM Vial IVPUSH SCH (11:00)
== END 2020-09-08 16:05 ==
LOC: KA.ED 07:49 → KA.MS 10:38
PROVIDERS: ADMIT Family Medicine; ATTEND Family Medicine
DX: R33.9 Retention of urine, unspecified (principal); N30.00 Acute cystitis without hematuria; N18.4 Chronic kidney disease, stage 4 (severe); I25.10 Atherosclerotic heart disease of native coronary artery without angina pectoris; I13.0 Hypertensive heart and chronic kidney disease with heart failure and stage 1 through stage 4 chronic kidney disease, or unspecified chronic kidney disease; I50.32 Chronic diastolic (congestive) heart failure; J44.9 Chronic obstructive pulmonary disease, unspecified; M10.9 Gout, unspecified; E03.9 Hypothyroidism, unspecified; I65.22 Occlusion and stenosis of left carotid artery; E66.9 Obesity, unspecified; N25.81 Secondary hyperparathyroidism of renal origin; D63.1 Anemia in chronic kidney disease; R31.0 Gross hematuria; C65.1 Malignant neoplasm of right renal pelvis; Z79.899 Other long term (current) drug therapy; Z79.82 Long term (current) use of aspirin; Z79.890 Hormone replacement therapy; Z20.822 Contact with and (suspected) exposure to COVID-19
CPT/HCPCS: 36415; 51702; 80053; 81001; 85025; 87086; 96374; 99284; G0378; J0696; U0002; J1815-GY

== ENCOUNTER 2021-01-05 15:58 | Emergency (ER) | payer MEDICARE, BC ==
[2021-01-05] MEDS: Lidocaine 2% Jelly 5 ML Tube ONE (16:24)
--- NOTE | 2021-01-05 17:00 | EDM.PDOC ---
ED HPI GENERAL MEDICAL PROBLEM - General Chief Complaint: Genitourinary Problem Stated Complaint: HEMATURIA Time Seen by Provider: 01/05/21 16:30 Source of Information: Reports: Patient, Family History Limitations: Reports: No Limitations - History of Present Illness INITIAL COMMENTS - FREE TEXT/NARRATIVE: 89 YO WM PRESENTS TO ER WITH HEMATURIA AND URINARY RETENTION WHICH HAS BEEN A CHRONIC PROBLEM OVER THE LAST 2 YEARS. 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 PT WITH HISTORY OF CHRONIC KIDNEY DISEASE WITH LAST LABS DRAWN IN OCTOBER 2020. PT DENIES FEVER/CHILLS, NO NAUSEAS/VOMITING, NO BACK PAIN OR ABDOMINAL PAIN. PT REPORTS HE HAS NOTICED MORE DIFFICULTY PASSING URINE OVER THE LAST FEW DAYS. Duration: Chronic, Getting Worse Location: Reports: Abdomen Severity: Mild Improves with: Reports: None Worsens with: Reports: None Associated Symptoms: Reports: No Other Symptoms. Denies: Fever/Chills, Nausea/Vomiting, Shortness of Breath, Weakness Groin Pain Score (Numeric/FACES): 6 - Related Data Allergies Allergy/AdvReac Type Severity Reaction Status Date / Time losartan Allergy Mild Cough Verified 01/05/21 16:22 lisinopril Allergy Rash Verified 01/05/21 17:07 Home Meds: Home Meds Bilberry 100 mg PO QAM 02/06/19 [History] Finasteride [Proscar] 5 mg PO QAM 02/06/19 [History] Metoprolol Succinate [Toprol XL 50mg] 50 mg PO QAM 02/06/19 [History] Metoprolol Succinate [Toprol XL] 25 mg PO QAM 02/06/19 [History] Multivit with Minerals/Lutein [Vision Plus Lutein Vitamin] 1 each PO QPM 02/06/19 [History] allopurinoL [Zyloprim] 100 mg PO DAILY@1800 02/06/19 [History] atorvaSTATin [Lipitor] 10 mg PO 1800 02/06/19 [History] calcitrioL [Rocaltrol] 0.5 mcg PO QAM 02/06/19 [History] Amoxicillin 2,000 mg PO ASDIRECTED 01/24/20 [History] Bumetanide [Bumex] 1 mg PO QAM 01/24/20 [History] Insulin Degludec [Tresiba] 20 unit SQ ACBREAKFAST 01/24/20 [History] Lancets [Microlet] 1 each MC ACBREAKFAST 10/06/20 [History] Levothyroxine 25 mcg PO ACBREAKFAST 01/24/20 [History] Aspirin [Aspirin EC] 81 mg PO QAM 06/03/20 [History] Ferrous Fumarate/Vitamin C [Vitron-C] 1 tab PO BID 06/05/20 [History] Past Medical History - Past Health History Medical/Surgical History: Denies Medical/Surgical History HEENT History: Reports: Hard of Hearing, Impaired Vision, Macular Degeneration Cardiovascular History: Reports: Bypass, CAD, Heart Failure, Hypertension, Stents, Other (See Below) Other Cardiovascular History: valve replaced Feb 2019. aortic stenosis. stenosis of left carotid artery. severe aortic valve stenosis Respiratory History: Reports: None Gastrointestinal History: Reports: None Genitourinary History: Reports: Chronic Renal Insuffiency, Renal Disease, Retention, Urinary, Other (See Below) Other Genitourinary History: hematuria. CKD stage 4, GFR 15-29. mass of right kidney Musculoskeletal History: Reports: Arthritis, Gout Neurological History: Reports: None Psychiatric History: Reports: None Endocrine/Metabolic History: Reports: Diabetes, Type II, Hyperparathyroidism, Hypothyroidism Other Endocrine/Metabolic History: hyperkalemia. fluid overload. secondary hyperparathyroidism of renal origin Hematologic History: Reports: Anemia Immunologic History: Reports: None Oncologic (Cancer) History: Reports: Malignant Melanoma Dermatologic History: Reports: Melanoma - Infectious Disease History Infectious Disease History: Reports: Mumps, Pertussis (Whooping Cough) - Past Surgical History Head Surgeries/Procedures: Reports: None HEENT Surgical History: Reports: None Cardiovascular Surgical History: Reports: Coronary Artery Bypass, Valve Replacement, Other (See Below) Other Cardiovascular Surgeries/Procedures: 3 stents done Jan 05, 2019 in [place] Respiratory Surgical History: Reports: None GI Surgical History: Reports: Colonoscopy Male Surgical History: Reports: Other (See Below) Endocrine Surgical History: Reports: None Neurological Surgical History: Reports: Lumbar Spine Musculoskeletal Surgical History: Reports: Knee Replacement, Shoulder Surgery, Other (See Below) Other Musculoskeletal Surgeries/Procedures:: Back surgery (bone grafting from right leg) in 1949 Oncologic Surgical History: Reports: None Dermatological Surgical History: Reports: Skin Biopsy Social & Family History - Family History Family Medical History: No Pertinent Family History - Tobacco Use Tobacco Use Status *Q: Never Tobacco User - Caffeine Use Caffeine Use: Reports: Coffee, Soda Other Caffeine Use: occasional pop, rare coffee - Recreational Drug Use Recreational Drug Use: No - Living Situation & Occupation Living situation: Reports: Occupation: Retired ED ROS GENERAL - Review of Systems Review Of Systems: See Below Constitutional: Reports: No Symptoms HEENT: Reports: No Symptoms Respiratory: Reports: No Symptoms Cardiovascular: Reports: No Symptoms Endocrine: Reports: No Symptoms GI/Abdominal: Reports: No Symptoms : Reports: Hematuria, Urinary Retention Musculoskeletal: Reports: No Symptoms Skin: Reports: No Symptoms Neurological: Reports: No Symptoms Psychiatric: Reports: No Symptoms Hematologic/Lymphatic: Reports: No Symptoms Immunologic: Reports: No Symptoms ED EXAM, RENAL/ - Physical Exam Exam: See Below Exam Limited By: No Limitations General Appearance: Alert, WD/WN, No Apparent Distress Head: Atraumatic, Normocephalic Neck: Normal Inspection, Supple, Non-Tender, Full Range of Motion Respiratory/Chest: No Respiratory Distress, Lungs Clear, Normal Breath Sounds, No Accessory Muscle Use, Chest Non-Tender Cardiovascular: Normal Peripheral Pulses, Regular Rate, Rhythm, No Edema, No Gallop, No JVD, No Murmur, No Rub GI/Abdominal: Normal Bowel Sounds, Soft, Non-Tender, No Organomegaly, No Distention, No Mass Back Exam: Normal Inspection, Full Range of Motion, NT Extremities: Normal Inspection, Normal Range of Motion, Non-Tender, Normal Capillary Refill, No Pedal Edema Neurological: Alert, Oriented, CN II-XII Intact, Normal Cognition, Normal Gait, No Motor/Sensory Deficits Psychiatric: Normal Affect, Normal Mood Skin Exam: Warm, Dry, Intact, Normal Color, No Rash Lymphatic: No Adenopathy Course - Vital Signs Last Recorded V/S: Last Vital Signs Temp 96.6 F L 01/05/21 16:20 Pulse 75 01/05/21 16:20 Resp 20 01/05/21 16:20 BP 152/89 H 01/05/21 16:20 Pulse Ox 98 01/05/21 16:20 - Orders/Labs/Meds Orders: Active Orders 24 hr Category Date Time Status BMP [BASIC METABOLIC PANEL,BMP] [CHEM] Stat Lab 01/05/21 16:53 Ordered CULTURE URINE [RM] Stat Lab 01/05/21 17:04 Ordered Labs: Laboratory Tests 01/05/21 01/05/21 Range/Units 16:41 17:15 WBC 4.39 L (5.00-10.00) 10^3/uL RBC 2.92 L (4.50-6.00) 10^6/uL Hgb 9.8 L (13.0-17.0) g/dL Hct 29.3 L (40.0-52.0) % MCV 100.3 H D (82.0-92.0) fL MCH 33.6 H (27.0-31.0) pg MCHC 33.4 (32.0-36.0) g/dL RDW 13.5 (11.5-14.5) % Plt Count 135 L (150-400) 10^3/uL MPV 9.8 (7.4-10.4) fL Immature Gran % (Auto) 0.2 (0.0-5.0) % Neut % (Auto) 69.9 (50.0-70.0) % Lymph % (Auto) 16.9 L (20.0-40.0) % [place] % (Auto) 8.0 (2.0-8.0) % Eos % (Auto) 4.3 H (1.0-3.0) % Baso % (Auto) 0.7 (0.0-1.0) % Neut # (Auto) 3.07 (2.50-7.00) 10^3/uL Lymph # (Auto) 0.74 L (1.00-4.00) 10^3/uL [place] # (Auto) 0.35 (0.10-0.80) 10^3/uL Eos # (Auto) 0.19 (0.10-0.30) 10^3/uL Baso # (Auto) 0.03 (0.00-0.10) 10^3/uL Immature Gran # (Auto) 0.01 (0.00-0.50) 10^3/uL Specimen Type Urincath Urine Color Red H (YELLOW) Urine Appearance Slightly cloudy H (CLEAR) Urine pH 6.0 (5.0-9.0) Ur Specific [place] 1.015 (1.005-1.030) Urine Protein >=300 H (NEGATIVE) mg/dL Urine Glucose (UA) Negative (NEGATIVE) mg/dL Urine Ketones Negative (NEGATIVE) mg/dL Urine Occult Blood Large H (NEGATIVE) Urine Nitrite Negative (NEGATIVE) Urine Bilirubin Negative (NEGATIVE) Urine Urobilinogen 0.2 (0.2-1.0) E.U./dL Ur Leukocyte Esterase Negative (NEGATIVE) Urine RBC >100 H (0-5) /HPF Urine WBC 0-5 (0-5) /HPF Ur Epithelial Cells Occasional /LPF Meds: Medications Discontinued Medications Generic Name Dose Route Start Last Admin Trade Name Freq PRN Reason Stop Dose Admin Lidocaine HCl Confirm 01/05/21 16:16 01/05/21 16:24 Lidocaine 2% Jelly 5 Ml Tube Administered 01/05/21 16:17 5 ml Dose Administration 5 ml .ROUTE .STK-MED ONE Lidocaine HCl 5 ml 01/05/21 16:23 01/05/21 17:27 Lidocaine 2% Jelly 5 Ml Tube TOP 01/05/21 16:24 Not Given ONETIME ONE - Radiology Interpretation Free Text/Narrative:: BMP ANALYZER WENT DOWN AND LAB RESULTS HAVE BEEN DELAYED. PT WANTS TO GO HOME WITHOUT BMP RESULTS. PT STATES THEY WILL FOLLOW UP WITH PCP ON Thursday01/07/21 FOR FURTHER EVALUATION AND TREATMENT. Departure - Departure Time of Disposition: 18:20 Disposition: Home, Self-Care 01 Condition: Good Clinical Impression: Acute urinary retention Chronic kidney disease (CKD) Qualifiers: Chronic kidney disease stage: unspecified stage Qualified Code(s): N18.9 - Chronic kidney disease, unspecified - Discharge Information Instructions: Chronic Kidney Disease, Adult, [id number], Acute Urinary Retention, Male Referrals: Jana Brush, [employer] [Primary Care Provider] - Forms: ED Department Discharge Additional Instructions: 1. DISCHARGE HOME 2. FOLLOW UP WITH [facility] FOR ROY CATHETER CHECK 3. RETURN TO ER FOR WORSENING SYMPTOMS Sepsis Event Note (ED) - Focused Exam Vital Signs: Vital Signs Temp Pulse Resp BP Pulse Ox 01/05/21 16:20 96.6 F L 75 20 152/89 H 98 - My Orders Last 24 Hours: My Active Orders 01/05/21 16:53 BMP [BASIC METABOLIC PANEL,BMP] [CHEM] Stat 01/05/21 17:04 CULTURE URINE [RM] Stat - Assessment/Plan Last 24 Hours: My Active Orders 01/05/21 16:53 BMP [BASIC METABOLIC PANEL,BMP] [CHEM] Stat 01/05/21 17:04 CULTURE URINE [RM] Stat Assessment:: 1. URINARY RETENTION 2. ROY CATHETER PLACEMENT 3. CHRONIC KIDNEY DISEASE Plan: 1. DISCHARGE HOME 2. FOLLOW UP WITH [facility] FOR ROY CATHETER CHECK 3. RETURN TO ER FOR WORSENING SYMPTOMS
[2021-01-05] MEDS: Lidocaine 2% Jelly 5 ML Tube TOP ONE (17:27)
[2021-01-05 18:55] LABS: ANION GAP 19.8 mmol/L (5-15)
== END 2021-01-05 18:50 | disposition home or self-care (01) ==
LOC: KA.ED 15:58
DX: R33.9 Retention of urine, unspecified (principal); I13.0 Hypertensive heart and chronic kidney disease with heart failure and stage 1 through stage 4 chronic kidney disease, or unspecified chronic kidney disease; E11.22 Type 2 diabetes mellitus with diabetic chronic kidney disease; N18.4 Chronic kidney disease, stage 4 (severe); I50.9 Heart failure, unspecified; I25.10 Atherosclerotic heart disease of native coronary artery without angina pectoris; E03.9 Hypothyroidism, unspecified; Z95.1 Presence of aortocoronary bypass graft
CPT/HCPCS: 36415; 51702; 80048; 81001; 85025; 87086; 99284; 99284-25

== ENCOUNTER 2021-01-28 19:30 | Observation (INO) | payer MEDICARE, BC ==
--- NOTE | 2021-01-28 20:10 | EDM.PDOC ---
ED HPI GENERAL MEDICAL PROBLEM - General Chief Complaint: Genitourinary Problem Stated Complaint: UNABLE TO URINATE Time Seen by Provider: 01/28/21 19:49 Source of Information: Reports: Patient, Family History Limitations: Reports: No Limitations - History of Present Illness INITIAL COMMENTS - FREE TEXT/NARRATIVE: 89 YO WM PRESENTS TO ER COMPLAINING OF HEMATURIA AND URINARY RETENTION WHICH BEGAN 4 DAYS AGO. PT REPORTS HE WAS PASSING BLOODY URINE FOR THE LAST 4 DAYS AND TODAY AROUND 4P PT REPORTS DIFFICULTY URINATING. PT REPORTS SOME DRIBBLING OF URINE BUT UNABLE TO COMPLETELY VOID. PT DENIES FEVER/CHILLS, NO NAUSEA/VOMITING, NO SHORTNESS OF BREATH OR DIZZINESS. Duration: Chronic Severity: Mild Improves with: Reports: None Worsens with: Reports: None Associated Symptoms: Reports: No Other Symptoms Lower Abdomen Pain Score (Numeric/FACES): 4 - Related Data Allergies Allergy/AdvReac Type Severity Reaction Status Date / Time losartan Allergy Mild Cough Verified 01/05/21 16:22 lisinopril Allergy Rash Verified 01/05/21 17:07 Home Meds: Home Meds Bilberry 100 mg PO QAM 02/06/19 [History] Finasteride [Proscar] 5 mg PO QAM 02/06/19 [History] Metoprolol Succinate [Toprol XL 50mg] 50 mg PO QAM 02/06/19 [History] Metoprolol Succinate [Toprol XL] 25 mg PO QAM 02/06/19 [History] Multivit with Minerals/Lutein [Vision Plus Lutein Vitamin] 1 each PO QPM 02/06/19 [History] allopurinoL [Zyloprim] 100 mg PO DAILY@1800 02/06/19 [History] atorvaSTATin [Lipitor] 10 mg PO 1800 02/06/19 [History] calcitrioL [Rocaltrol] 0.5 mcg PO QAM 02/06/19 [History] Amoxicillin 2,000 mg PO ASDIRECTED 01/24/20 [History] Bumetanide [Bumex] 1 mg PO QAM 01/24/20 [History] Insulin Degludec [Tresiba] 20 unit SQ ACBREAKFAST 01/24/20 [History] Lancets [Microlet] 1 each MC ACBREAKFAST 01/24/20 [History] Levothyroxine 25 mcg PO ACBREAKFAST 01/24/20 [History] Aspirin [Aspirin EC] 81 mg PO QAM 06/03/20 [History] Ferrous Fumarate/Vitamin C [Vitron-C] 1 tab PO BID 06/05/20 [History] Past Medical History - Past Health History Medical/Surgical History: Denies Medical/Surgical History HEENT History: Reports: Hard of Hearing, Impaired Vision, Macular Degeneration Cardiovascular History: Reports: Bypass, CAD, Heart Failure, Hypertension, Stents, Other (See Below) Other Cardiovascular History: valve replaced Feb 2019. aortic stenosis. stenosis of left carotid artery. severe aortic valve stenosis Respiratory History: Reports: None Gastrointestinal History: Reports: None Genitourinary History: Reports: Chronic Renal Insuffiency, Renal Disease, Retention, Urinary, Other (See Below) Other Genitourinary History: hematuria. CKD stage 4, GFR 15-29. mass of right kidney Musculoskeletal History: Reports: Arthritis, Gout Neurological History: Reports: None Psychiatric History: Reports: None Endocrine/Metabolic History: Reports: Diabetes, Type II, Hyperparathyroidism, Hypothyroidism Other Endocrine/Metabolic History: hyperkalemia. fluid overload. secondary hyperparathyroidism of renal origin Hematologic History: Reports: Anemia Immunologic History: Reports: None Oncologic (Cancer) History: Reports: Malignant Melanoma Dermatologic History: Reports: Melanoma - Infectious Disease History Infectious Disease History: Reports: Mumps, Pertussis (Whooping Cough) - Past Surgical History Head Surgeries/Procedures: Reports: None HEENT Surgical History: Reports: None Cardiovascular Surgical History: Reports: Coronary Artery Bypass, Valve Replacement, Other (See Below) Other Cardiovascular Surgeries/Procedures: 3 stents done Jan 05, 2019 in [place] Respiratory Surgical History: Reports: None GI Surgical History: Reports: Colonoscopy Male Surgical History: Reports: Other (See Below) Endocrine Surgical History: Reports: None Neurological Surgical History: Reports: Lumbar Spine Musculoskeletal Surgical History: Reports: Knee Replacement, Shoulder Surgery, Other (See Below) Other Musculoskeletal Surgeries/Procedures:: Back surgery (bone grafting from ri ght leg) in 1949 Oncologic Surgical History: Reports: None Dermatological Surgical History: Reports: Skin Biopsy Social & Family History - Family History Family Medical History: No Pertinent Family History - Caffeine Use Caffeine Use: Reports: Coffee, Soda Other Caffeine Use: occasional pop, rare coffee - Living Situation & Occupation Living situation: Reports: Occupation: Retired ED ROS GENERAL - Review of Systems Review Of Systems: See Below Constitutional: Reports: No Symptoms HEENT: Reports: No Symptoms Respiratory: Reports: No Symptoms Cardiovascular: Reports: No Symptoms Endocrine: Reports: No Symptoms GI/Abdominal: Reports: No Symptoms : Reports: Hematuria, Urinary Retention Musculoskeletal: Reports: No Symptoms Skin: Reports: No Symptoms Neurological: Reports: No Symptoms Psychiatric: Reports: No Symptoms Hematologic/Lymphatic: Reports: No Symptoms Immunologic: Reports: No Symptoms ED EXAM, RENAL/ - Physical Exam Exam: See Below Exam Limited By: No Limitations General Appearance: Alert, WD/WN, No Apparent Distress Neck: Normal Inspection, Supple, Non-Tender, Full Range of Motion Respiratory/Chest: No Respiratory Distress, Lungs Clear, Normal Breath Sounds, No Accessory Muscle Use, Chest Non-Tender Cardiovascular: Normal Peripheral Pulses, Regular Rate, Rhythm, No Edema, No Gallop, No JVD, No Murmur, No Rub GI/Abdominal: Normal Bowel Sounds, Soft, Non-Tender, No Organomegaly, No Distention, No Abnormal Bruit, No Mass Back Exam: Normal Inspection, Full Range of Motion, NT Extremities: Normal Inspection, Normal Range of Motion, Non-Tender, Normal Capillary Refill, No Pedal Edema Neurological: Alert, Oriented, CN II-XII Intact, Normal Cognition, Normal Gait, No Motor/Sensory Deficits Psychiatric: Normal Affect, Normal Mood Skin Exam: Warm, Dry, Intact, Normal Color, No Rash Lymphatic: No Adenopathy Course - Vital Signs Last Recorded V/S: Last Vital Signs Temp 97.1 F 01/28/21 20:05 Pulse 83 01/28/21 20:05 Resp 16 01/28/21 20:05 BP 153/67 H 01/28/21 20:05 Pulse Ox 99 01/28/21 20:05 - Orders/Labs/Meds Orders: Active Orders 24 hr Category Date Time Status Patient Status Manage Transfer [TRANSFER] Routine ADT 01/28/21 21:21 Active Patient Status [ADT] Routine ADT 01/28/21 21:22 Active Roy Catheter Insertion [Insert Urinary Catheter] [OM. Care 01/28/21 20:15 Ordered PC] Q24H Oxygen Therapy [RC] PRN Care 01/28/21 21:22 Active Up With Assistance [RC] ASDIRECTED Care 01/28/21 21:22 Active Urinary Catheter Assessment [RC] ASDIRECTED Care 01/28/21 20:09 Active VTE/DVT Education [RC] PER UNIT ROUTINE Care 01/28/21 21:22 Active Vital Signs [RC] Q4H Care 01/28/21 21:22 Active BASIC METABOLIC PANEL,BMP [CHEM] Stat Lab 01/28/21 20:25 Results CORONAVIRUS COVID-19 RAPID [MOLEC] Stat Lab 01/28/21 21:21 Ordered Resuscitation Status Routine Resus Stat 01/28/21 21:22 Ordered Labs: Laboratory Tests 01/28/21 01/28/21 01/28/21 Range/Units 20:25 20:25 20:30 WBC 4.44 L (5.00-10.00) 10^3/uL RBC 2.41 L (4.50-6.00) 10^6/uL Hgb 8.2 L D (13.0-17.0) g/dL Hct 24.2 L (40.0-52.0) % MCV 100.4 H (82.0-92.0) fL MCH 34.0 H (27.0-31.0) pg MCHC 33.9 (32.0-36.0) g/dL RDW 13.6 (11.5-14.5) % Plt Count 130 L (150-400) 10^3/uL MPV 10.0 (7.4-10.4) fL Immature Gran % (Auto) 0.7 (0.0-5.0) % Neut % (Auto) 70.9 H (50.0-70.0) % Lymph % (Auto) 16.9 L (20.0-40.0) % [place] % (Auto) 7.0 (2.0-8.0) % Eos % (Auto) 3.8 H (1.0-3.0) % Baso % (Auto) 0.7 (0.0-1.0) % Neut # (Auto) 3.15 (2.50-7.00) 10^3/uL Lymph # (Auto) 0.75 L (1.00-4.00) 10^3/uL [place] # (Auto) 0.31 (0.10-0.80) 10^3/uL Eos # (Auto) 0.17 (0.10-0.30) 10^3/uL Baso # (Auto) 0.03 (0.00-0.10) 10^3/uL Immature Gran # (Auto) 0.03 (0.00-0.50) 10^3/uL Carbon Dioxide 21.7 (21.0-32.0) mmol/L BUN 85 H* (7-18) mg/dL Creatinine 3.64 H (0.51-1.17) mg/dL Est Cr Clr Drug Dosing 13.76 mL/min Estimated GFR (MDRD) 16 mL/min Glucose 138 (70-140) mg/dL Calcium 8.4 L (8.7-10.3) mg/dL Specimen Type Urincath Urine Color Red H (YELLOW) Urine Appearance Cloudy H (CLEAR) Urine pH 6.0 (5.0-9.0) Ur Specific [place] 1.020 (1.005-1.030) Urine Protein >=300 H (NEGATIVE) mg/dL Urine Glucose (UA) Negative (NEGATIVE) mg/dL Urine Ketones Negative (NEGATIVE) mg/dL Urine Occult Blood Large H (NEGATIVE) Urine Nitrite Negative (NEGATIVE) Urine Bilirubin Negative (NEGATIVE) Urine Urobilinogen 0.2 (0.2-1.0) E.U./dL Ur Leukocyte Esterase Negative (NEGATIVE) Urine RBC Packed (0-5) /HPF Urine WBC 5-10 H (0-5) /HPF Ur Epithelial Cells Rare /LPF Urine Bacteria Rare (NONE TO FEW) /HPF Departure - Departure Time of Disposition: 21:20 Disposition: Refer to Observation Condition: Fair Clinical Impression: Urinary retention Anemia Qualifiers: Anemia type: unspecified type Qualified Code(s): D64.9 - Anemia, unspecified Hematuria Qualifiers: Hematuria type: gross Qualified Code(s): R31.0 - Gross hematuria - Discharge Information Referrals: Jana Brush PLUG SORTER [Primary Care Provider] - Forms: ED Department Discharge Sepsis Event Note (ED) - Focused Exam Vital Signs: Vital Signs Temp Pulse Resp BP Pulse Ox 01/28/21 20:05 97.1 F 83 16 153/67 H 99 - My Orders Last 24 Hours: My Active Orders 01/28/21 20:09 Urinary Catheter Assessment [RC] ASDIRECTED 01/28/21 20:15 Roy Catheter Insertion [Insert Urinary Catheter] [OM.PC] Q24H 01/28/21 20:25 BASIC METABOLIC PANEL,BMP [CHEM] Stat 01/28/21 21:21 Patient Status Manage Transfer [TRANSFER] Routine CORONAVIRUS COVID-19 RAPID [MOLEC] Stat 01/28/21 21:22 Patient Status [ADT] Routine Oxygen Therapy [RC] PRN Up With Assistance [RC] ASDIRECTED VTE/DVT Education [RC] PER UNIT ROUTINE Vital Signs [RC] Q4H Resuscitation Status Routine - Assessment/Plan Last 24 Hours: My Active Orders 01/28/21 20:09 Urinary Catheter Assessment [RC] ASDIRECTED 01/28/21 20:15 Roy Catheter Insertion [Insert Urinary Catheter] [OM.PC] Q24H 01/28/21 20:25 BASIC METABOLIC PANEL,BMP [CHEM] Stat 01/28/21 21:21 Patient Status Manage Transfer [TRANSFER] Routine CORONAVIRUS COVID-19 RAPID [MOLEC] Stat 01/28/21 21:22 Patient Status [ADT] Routine Oxygen Therapy [RC] PRN Up With Assistance [RC] ASDIRECTED VTE/DVT Education [RC] PER UNIT ROUTINE Vital Signs [RC] Q4H Resuscitation Status Routine Assessment:: 1. GROSS HEMATURIA 2. PROFOUND ANEMIA DUE TO BLOOD LOSS 3. URINARY RETENTION Plan: 1. ADMIT TO MEDICINE- DR LANGLEY-SHAYY- OBS @1915 2. ROY CATH 3. SERIAL H/H 4. SUPPORTIVE CARE
[2021-01-28 21:48] LABS: ANION GAP 14.6 mmol/L (5-15)
[2021-01-29] MEDS ORDERED: Non-Formulary Medication 1 Each (Insulin Degludec [Tresiba] 100 UNIT/ML Vial) SQ SCH (07:30)
[2021-01-29] MEDS ORDERED: Levothyroxine 25 MCG Tab PO SCH (07:30)
[2021-01-29 08:03] LABS: ANION GAP 17.5 mmol/L (5-15)
[2021-01-29] MEDS ORDERED: Metoprolol Succinate 50 MG Tab.ER PO SCH (09:00)
[2021-01-29] MEDS ORDERED: Metoprolol Succinate 25 MG Tab.ER PO SCH (09:00)
[2021-01-29] MEDS ORDERED: Finasteride 5 MG Tab PO SCH (09:00)
[2021-01-29] MEDS ORDERED: Bumetanide 1 MG Tab PO SCH (10:45)
--- NOTE | 2021-01-29 10:59 | PCM.HP.2 ---
H&P History of Present Illness - General Date of Service: 01/29/21 Admit Problem/Dx: Admission Diagnosis/Problem Admission Diagnosis/Problem Hematuria Lower Abdomen Pain Score (Numeric/FACES): 4 - Related Data Allergies/Adverse Reactions: Allergies Allergy/AdvReac Type Severity Reaction Status Date / Time losartan Allergy Mild Cough Verified 01/28/21 22:01 lisinopril Allergy Rash Verified 01/28/21 22:01 Home Medications: Home Meds Bilberry 100 mg PO BID 02/06/19 [History] Finasteride [Proscar] 5 mg PO QAM 02/06/19 [History] Metoprolol Succinate [Toprol XL 50mg] 50 mg PO QAM 02/06/19 [History] Metoprolol Succinate [Toprol XL] 25 mg PO QAM 02/06/19 [History] Multivit with Minerals/Lutein [Vision Plus Lutein Vitamin] 1 each PO QPM 9 [History] allopurinoL [Zyloprim] 100 mg PO DAILY@1800 02/06/19 [History] atorvaSTATin [Lipitor] 10 mg PO 1800 02/06/19 [History] calcitrioL [Rocaltrol] 0.25 mcg PO QAM 02/06/19 [History] Amoxicillin 2,000 mg PO ASDIRECTED 01/24/20 [History] Bumetanide [Bumex] 1 mg PO BID 01/24/20 [History] Lancets [Microlet] 1 each MC ACBREAKFAST 01/24/20 [History] Levothyroxine 25 mcg PO ACBREAKFAST 01/24/20 [History] Ferrous Fumarate/Vitamin C [Vitron-C] 1 tab PO BID 06/05/20 [History] Sodium Bicarbonate 650 mg PO TID 01/28/21 [History] Insulin Degludec [Tresiba] 16 unit SQ ACBREAKFAST #0 01/29/21 [Rx] Past Medical History - Past Health History Medical/Surgical History: Denies Medical/Surgical History HEENT History: Reports: Hard of Hearing, Impaired Vision, Macular Degeneration Cardiovascular History: Reports: Bypass, CAD, Heart Failure, Hypertension, Stents, Other (See Below) Other Cardiovascular History: valve replaced Feb 2019. aortic stenosis. steno sis of left carotid artery. severe aortic valve stenosis Respiratory History: Reports: None Gastrointestinal History: Reports: None Genitourinary History: Reports: Chronic Renal Insuffiency, Renal Disease, Retention, Urinary, Other (See Below) Other Genitourinary History: hematuria. CKD stage 4, GFR 15-29. mass of right kidney Musculoskeletal History: Reports: Arthritis, Gout Neurological History: Reports: None Psychiatric History: Reports: None Endocrine/Metabolic History: Reports: Diabetes, Type II, Hyperparathyroidism, Hypothyroidism Other Endocrine/Metabolic History: hyperkalemia. fluid overload. secondary hyperparathyroidism of renal origin Hematologic History: Reports: Anemia Immunologic History: Reports: None Oncologic (Cancer) History: Reports: Malignant Melanoma Dermatologic History: Reports: Melanoma - Infectious Disease History Infectious Disease History: Reports: Mumps, Pertussis (Whooping Cough) - Past Surgical History Head Surgeries/Procedures: Reports: None HEENT Surgical History: Reports: None Cardiovascular Surgical History: Reports: Coronary Artery Bypass, Valve Replacement, Other (See Below) Other Cardiovascular Surgeries/Procedures: 3 stents done Jan 05, 2019 in [place] Respiratory Surgical History: Reports: None GI Surgical History: Reports: Colonoscopy Male Surgical History: Reports: Other (See Below) Endocrine Surgical History: Reports: None Neurological Surgical History: Reports: Lumbar Spine Musculoskeletal Surgical History: Reports: Knee Replacement, Shoulder Surgery, Other (See Below) Other Musculoskeletal Surgeries/Procedures:: Back surgery (bone grafting from right leg) in 1949 Oncologic Surgical History: Reports: None Dermatological Surgical History: Reports: Skin Biopsy Social & Family History - Family History Family Medical History: No Pertinent Family History - Tobacco Use Tobacco Use Status *Q: Never Tobacco User - Caffeine Use Caffeine Use: Reports: Coffee Other Caffeine Use: occasional pop, rare coffee - Recreational Drug Use Recreational Drug Use: No - Living Situation & Occupation Living situation: Reports: Occupation: Retired Exam - Vital Signs Vital Signs: Last Vital Signs Temp 36.3 C 01/29/21 06:14 Pulse 79 01/29/21 06:14 Resp 18 01/29/21 06:14 BP 137/67 01/29/21 06:14 Pulse Ox 96 01/29/21 06:14 Weight: 93.44 kg - Patient Data Lab Results Last 24 hrs: Laboratory Results - last 24 hr 01/28/21 01/28/21 01/28/21 Range/Units 20:25 20:25 20:30 WBC 4.44 L (5.00-10.00) 10^3/uL RBC 2.41 L (4.50-6.00) 10^6/uL Hgb 8.2 L D (13.0-17.0) g/dL Hct 24.2 L (40.0-52.0) % MCV 100.4 H (82.0-92.0) fL MCH 34.0 H (27.0-31.0) pg MCHC 33.9 (32.0-36.0) g/dL RDW 13.6 (11.5-14.5) % Plt Count 130 L (150-400) 10^3/uL MPV 10.0 (7.4-10.4) fL Immature Gran % (Auto) 0.7 (0.0-5.0) % Neut % (Auto) 70.9 H (50.0-70.0) % Lymph % (Auto) 16.9 L (20.0-40.0) % [place] % (Auto) 7.0 (2.0-8.0) % Eos % (Auto) 3.8 H (1.0-3.0) % Baso % (Auto) 0.7 (0.0-1.0) % Neut # (Auto) 3.15 (2.50-7.00) 10^3/uL Lymph # (Auto) 0.75 L (1.00-4.00) 10^3/uL [place] # (Auto) 0.31 (0.10-0.80) 10^3/uL Eos # (Auto) 0.17 (0.10-0.30) 10^3/uL Baso # (Auto) 0.03 (0.00-0.10) 10^3/uL Immature Gran # (Auto) 0.03 (0.00-0.50) 10^3/uL Sodium 137 L (138-146) mmol/L Potassium 4.3 (3.5-4.5) mmol/L Chloride 105 (98-107) mmol/L Carbon Dioxide 21.7 (21.0-32.0) mmol/L Anion Gap 14.6 (5-15) mmol/L BUN 85 H* (7-18) mg/dL Creatinine 3.64 H (0.51-1.17) mg/dL Est Cr Clr Drug Dosing 13.76 mL/min Estimated GFR (MDRD) 16 mL/min Glucose 138 (70-140) mg/dL Calcium 8.4 L (8.7-10.3) mg/dL Specimen Type Urincath Urine Color Red H (YELLOW) Urine Appearance Cloudy H (CLEAR) Urine pH 6.0 (5.0-9.0) Ur Specific [place] 1.020 (1.005-1.030) Urine Protein >=300 H (NEGATIVE) mg/dL Urine Glucose (UA) Negative (NEGATIVE) mg/dL Urine Ketones Negative (NEGATIVE) mg/dL Urine Occult Blood Large H (NEGATIVE) Urine Nitrite Negative (NEGATIVE) Urine Bilirubin Negative (NEGATIVE) Urine Urobilinogen 0.2 (0.2-1.0) E.U./dL Ur Leukocyte Esterase Negative (NEGATIVE) Urine RBC Packed (0-5) /HPF Urine WBC 5-10 H (0-5) /HPF Ur Epithelial Cells Rare /LPF Urine Bacteria Rare (NONE TO FEW) /HPF SARS CoV-2 RNA Rapid ANGELINA (NEGATIVE) 01/28/21 01/29/21 01/29/21 Range/Units 21:21 07:25 07:25 WBC 3.98 L (5.00-10.00) 10^3/uL RBC 2.35 L (4.50-6.00) 10^6/uL Hgb 7.9 L (13.0-17.0) g/dL Hct 24.0 L (40.0-52.0) % MCV 102.1 H (82.0-92.0) fL MCH 33.6 H (27.0-31.0) pg MCHC 32.9 (32.0-36.0) g/dL RDW 13.8 (11.5-14.5) % Plt Count 114 L (150-400) 10^3/uL MPV 9.2 (7.4-10.4) fL Immature Gran % (Auto) 0.5 (0.0-5.0) % Neut % (Auto) 67.6 (50.0-70.0) % Lymph % (Auto) 17.6 L (20.0-40.0) % [place] % (Auto) 8.8 H (2.0-8.0) % Eos % (Auto) 5.0 H (1.0-3.0) % Baso % (Auto) 0.5 (0.0-1.0) % Neut # (Auto) 2.69 (2.50-7.00) 10^3/uL Lymph # (Auto) 0.70 L (1.00-4.00) 10^3/uL [place] # (Auto) 0.35 (0.10-0.80) 10^3/uL Eos # (Auto) 0.20 (0.10-0.30) 10^3/uL Baso # (Auto) 0.02 (0.00-0.10) 10^3/uL Immature Gran # (Auto) 0.02 (0.00-0.50) 10^3/uL Sodium 143 (138-146) mmol/L Potassium 4.3 (3.5-4.5) mmol/L Chloride 108 H (98-107) mmol/L Carbon Dioxide 21.8 (21.0-32.0) mmol/L Anion Gap 17.5 H (5-15) mmol/L BUN 78 H* (7-18) mg/dL Creatinine 3.43 H (0.51-1.17) mg/dL Est Cr Clr Drug Dosing 14.13 mL/min Estimated GFR (MDRD) 17 mL/min Glucose 99 (70-140) mg/dL Calcium 8.3 L (8.7-10.3) mg/dL Specimen Type Urine Color (YELLOW) Urine Appearance (CLEAR) Urine pH (5.0-9.0) Ur Specific [place] (1.005-1.030) Urine Protein (NEGATIVE) mg/dL Urine Glucose (UA) (NEGATIVE) mg/dL Urine Ketones (NEGATIVE) mg/dL Urine Occult Blood (NEGATIVE) Urine Nitrite (NEGATIVE) Urine Bilirubin (NEGATIVE) Urine Urobilinogen (0.2-1.0) E.U./dL Ur Leukocyte Esterase (NEGATIVE) Urine RBC (0-5) /HPF Urine WBC (0-5) /HPF Ur Epithelial Cells /LPF Urine Bacteria (NONE TO FEW) /HPF SARS CoV-2 RNA Rapid ANGELINA Negative (NEGATIVE) Result Diagrams: 01/29/21 07:25 01/29/21 07:25 Sepsis Event Note - Evaluation Sepsis Screening Result: No Definite Risk - Focused Exam Vital Signs: Vital Signs Temp Pulse Resp BP Pulse Ox 01/29/21 06:14 36.3 C 79 18 137/67 96 01/29/21 02:55 36.2 C 69 16 134/61 97 Orders Last 24hrs: Active Orders 24 hr Category Date Time Status Patient Status [ADT] Routine ADT 01/28/21 21:22 Active Communication Order [RC] 00,08,16 Care 01/28/21 23:39 Active Oxygen Therapy [RC] .PRN Care 01/28/21 21:22 Active Ready for Discharge [RC] PER UNIT ROUTINE Care 01/29/21 10:58 Ordered Up With Assistance [RC] DAILY Care 01/28/21 21:22 Active Vital Signs [RC] 03,07,11,15,19,23 Care 01/28/21 21:22 Active Renal Non-Dialysis Diet [DIET] Diet 01/29/21 Breakfast Active Bumetanide [Bumex] Med 01/29/21 10:45 Ordered 1 mg PO BID Finasteride [Proscar] Med 01/29/21 09:00 Ordered 5 mg PO QAM Insulin Degludec [Tresiba] Med 01/29/21 07:30 Ordered 16 unit SQ ACBREAKFAST Levothyroxine Med 01/29/21 07:30 Ordered 25 mcg PO ACBREAKFAST Metoprolol Succinate [Toprol XL] Med 01/29/21 09:00 Ordered 25 mg PO QAM Metoprolol Succinate [Toprol XL] Med 01/29/21 09:00 Ordered 50 mg PO QAM Resuscitation Status Routine Resus Stat 01/28/21 21:22 Ordered Medication Orders Bumetanide (Bumetanide 1 Mg Tab) 1 mg PO BID TANYA Finasteride (Finasteride 5 Mg Tab) 5 mg PO QAM TANYA Levothyroxine Sodium (Levothyroxine 25 Mcg Tab) 25 mcg PO ACBREAKFAST TANYA Metoprolol Succinate (Metoprolol Succinate 25 Mg Tab.Er) 25 mg PO QAM TANYA Metoprolol Succinate (Metoprolol Succinate 50 Mg Tab.Er) 50 mg PO QAM TANYA Non-Formulary Medication (Insulin Degludec [Tresiba]) 16 unit SQ ACBREAKFAST TANYA
== END 2021-01-29 11:55 | disposition home or self-care (01) ==
LOC: KA.ED 19:30 → KA.MS 21:22
PROVIDERS: ADMIT Physician Assistant Medical; ATTEND Family Medicine
DX: R31.9 Hematuria, unspecified (principal); R33.9 Retention of urine, unspecified; I50.9 Heart failure, unspecified; I25.10 Atherosclerotic heart disease of native coronary artery without angina pectoris; N18.4 Chronic kidney disease, stage 4 (severe); E11.22 Type 2 diabetes mellitus with diabetic chronic kidney disease; I13.0 Hypertensive heart and chronic kidney disease with heart failure and stage 1 through stage 4 chronic kidney disease, or unspecified chronic kidney disease; E03.9 Hypothyroidism, unspecified; D50.0 Iron deficiency anemia secondary to blood loss (chronic); Z20.822 Contact with and (suspected) exposure to COVID-19; Z88.8 Allergy status to other drugs, medicaments and biological substances; Z79.899 Other long term (current) drug therapy; Z79.82 Long term (current) use of aspirin; Z98.890 Other specified postprocedural states
CPT/HCPCS: 36415; 51702; 80048; 81001; 85025; 99284-25; G0378; U0002

== ENCOUNTER 2021-02-04 17:44 | Observation (INO) | payer MEDICARE, BC ==
[2021-02-04] MEDS ORDERED: Sodium Chloride 0.9% 10 ML Syringe FLUSH PRN (17:58)
[2021-02-04 19:08] LABS: ANION GAP 20.5 mmol/L (5-15)
[2021-02-04] MEDS ORDERED: Fluconazole 100 MG Tab PO ONE (19:50)
[2021-02-04] MEDS ORDERED: Non-Formulary Medication 1 Each (Ferrous Fumarate/Vitamin C [Vitron-C] 1 TAB Tablet) PO SCH (21:00)
[2021-02-04] MEDS: Lutein/Minerals/Vitamins A, C & E Tab PO SCH (21:04)
[2021-02-04] MEDS: Bumetanide 1 MG Tab PO SCH (21:05)
[2021-02-04] MEDS ORDERED: Acetaminophen 325 MG Tab PO PRN (21:25)
[2021-02-05] MEDS ORDERED: LANCETS MC SCH (07:30)
[2021-02-05 08:08] LABS: ANION GAP 16.6 mmol/L (5-15)
[2021-02-05] MEDS: Insulin Glargine,Hum.Rec.Anlog 100 UNIT/ML 3 ML Pen SUBCUT SCH (08:09)
[2021-02-05] MEDS: Calcitriol 0.25 MCG Cap PO SCH (08:10)
[2021-02-05] MEDS: Metoprolol Succinate 25 MG Tab.ER PO SCH (08:10)
[2021-02-05] MEDS: Finasteride 5 MG Tab PO SCH (08:11)
[2021-02-05] MEDS: Levothyroxine 25 MCG Tab PO SCH (08:11)
[2021-02-05] MEDS: Bumetanide 1 MG Tab PO SCH ×2 (08:11→20:19)
[2021-02-05] MEDS: Metoprolol Succinate 50 MG Tab.ER PO SCH (08:22)
--- NOTE | 2021-02-05 09:15 | PCM.PN ---
- General Info Date of Service: 02/05/21 Functional Status: Reports: Pain Controlled, Tolerating Diet, Ambulating, Urinating. Denies: New Symptoms - Review of Systems General: Reports: No Symptoms. Denies: Weakness, Fatigue HEENT: Reports: No Symptoms Pulmonary: Reports: No Symptoms Cardiovascular: Reports: Edema. Denies: Lightheadedness Gastrointestinal: Reports: No Symptoms Genitourinary: Reports: Hematuria (chronic gross hematuria) Musculoskeletal: Reports: No Symptoms Skin: Reports: Pallor Neurological: Reports: No Symptoms. Denies: Dizziness, Weakness Psychiatric: Reports: No Symptoms - Patient Data Vitals - Most Recent: Last Vital Signs Temp 97.3 F 02/05/21 07:00 Pulse 85 02/05/21 08:22 Resp 18 02/05/21 07:00 BP 137/64 02/05/21 08:22 Pulse Ox 95 02/05/21 07:00 Weight - Most Recent: 207 lb 4.8 oz I&O - Last 24 Hours: Intake & Output 02/04/21 02/05/21 02/05/21 22:59 06:59 14:59 Intake Total 350 200 Output Total 520 800 Balance -170 -600 Lab Results Last 24 Hours: Laboratory Results - last 24 hr 02/04/21 02/04/21 02/04/21 Range/Units 18:15 18:35 18:35 WBC 5.50 (5.00-10.00) 10^3/uL RBC 2.49 L (4.50-6.00) 10^6/uL Hgb 8.6 L (13.0-17.0) g/dL Hct 26.3 L (40.0-52.0) % MCV 105.6 H D (82.0-92.0) fL MCH 34.5 H (27.0-31.0) pg MCHC 32.7 (32.0-36.0) g/dL RDW 13.9 (11.5-14.5) % Plt Count 151 (150-400) 10^3/uL MPV 9.5 (7.4-10.4) fL Immature Gran % (Auto) 0.4 (0.0-5.0) % Neut % (Auto) 69.3 (50.0-70.0) % Lymph % (Auto) 18.0 L (20.0-40.0) % Ocean % (Auto) 7.1 (2.0-8.0) % Eos % (Auto) 4.5 H (1.0-3.0) % Baso % (Auto) 0.7 (0.0-1.0) % Neut # (Auto) 3.81 (2.50-7.00) 10^3/uL Lymph # (Auto) 0.99 L (1.00-4.00) 10^3/uL Ocean # (Auto) 0.39 (0.10-0.80) 10^3/uL Eos # (Auto) 0.25 (0.10-0.30) 10^3/uL Baso # (Auto) 0.04 (0.00-0.10) 10^3/uL Immature Gran # (Auto) 0.02 (0.00-0.50) 10^3/uL Anisocytosis 1+ slight Macrocytosis 1+ slight Ovalocytes Few Sodium 143 (136-145) mmol/L Potassium 4.5 (3.5-5.1) mmol/L Chloride 106 (98-107) mmol/L Carbon Dioxide 21.0 (21.0-32.0) mmol/L Anion Gap 20.5 H (5-15) mmol/L BUN 68 H* (7-18) mg/dL Creatinine 3.71 H (0.51-1.17) mg/dL Est Cr Clr Drug Dosing 13.06 mL/min Estimated GFR (MDRD) 15 mL/min Glucose 124 (70-140) mg/dL POC Glucose (70-140) mg/dL Calcium 8.8 (8.7-10.3) mg/dL Total Bilirubin 0.2 (0.2-1.0) mg/dL AST 20 (15-37) U/L ALT 24 (14-63) U/L Alkaline Phosphatase 106 (46-116) U/L Total Protein 6.8 (6.4-8.2) g/dL Albumin 3.26 L (3.40-5.00) g/dL SARS CoV-2 RNA Rapid ANGELINA Negative (NEGATIVE) 02/04/21 02/05/21 02/05/21 Range/Units 21:13 07:25 07:25 WBC 3.56 L (5.00-10.00) 10^3/uL RBC 2.15 L (4.50-6.00) 10^6/uL Hgb 7.2 L (13.0-17.0) g/dL Hct 22.5 L (40.0-52.0) % MCV 104.7 H (82.0-92.0) fL MCH 33.5 H (27.0-31.0) pg MCHC 32.0 (32.0-36.0) g/dL RDW 13.8 (11.5-14.5) % Plt Count 127 L (150-400) 10^3/uL MPV 9.9 (7.4-10.4) fL Immature Gran % (Auto) 0.3 (0.0-5.0) % Neut % (Auto) 60.9 (50.0-70.0) % Lymph % (Auto) 25.0 (20.0-40.0) % Ocean % (Auto) 7.6 (2.0-8.0) % Eos % (Auto) 5.9 H (1.0-3.0) % Baso % (Auto) 0.3 (0.0-1.0) % Neut # (Auto) 2.17 L (2.50-7.00) 10^3/uL Lymph # (Auto) 0.89 L (1.00-4.00) 10^3/uL Ocean # (Auto) 0.27 (0.10-0.80) 10^3/uL Eos # (Auto) 0.21 (0.10-0.30) 10^3/uL Baso # (Auto) 0.01 (0.00-0.10) 10^3/uL Immature Gran # (Auto) 0.01 (0.00-0.50) 10^3/uL Anisocytosis Macrocytosis Ovalocytes Sodium 146 H (136-145) mmol/L Potassium 4.6 (3.5-5.1) mmol/L Chloride 110 H (98-107) mmol/L Carbon Dioxide 24.0 (21.0-32.0) mmol/L Anion Gap 16.6 H (5-15) mmol/L BUN 66 H* (7-18) mg/dL Creatinine 3.67 H (0.51-1.17) mg/dL Est Cr Clr Drug Dosing 13.20 mL/min Estimated GFR (MDRD) 16 mL/min Glucose 89 (70-140) mg/dL POC Glucose 187 H (70-140) mg/dL Calcium 8.2 L (8.7-10.3) mg/dL Total Bilirubin (0.2-1.0) mg/dL AST (15-37) U/L ALT (14-63) U/L Alkaline Phosphatase (46-116) U/L Total Protein (6.4-8.2) g/dL Albumin (3.40-5.00) g/dL SARS CoV-2 RNA Rapid ANGELINA (NEGATIVE) Med Orders - Current: Current Medications Acetaminophen (Acetaminophen 325 Mg Tab) 650 mg PO Q4H PRN PRN Reason: Pain (mild 1-3) Last Admin: 02/04/21 21:53 Dose: 650 mg Documented by: Allopurinol (Allopurinol 100 Mg Tab) 100 mg PO DAILY@1800 TANYA Atorvastatin Calcium (Atorvastatin 10 Mg Tab) 10 mg PO 1800 [facility] Bumetanide (Bumetanide 1 Mg Tab) 1 mg PO BID [facility] Last Admin: 02/05/21 08:11 Dose: 1 mg Documented by: Calcitriol (Calcitriol 0.25 Mcg Cap) 0.25 mcg PO [facility] Last Admin: 02/05/21 08:10 Dose: 0.25 mcg Documented by: Finasteride (Finasteride 5 Mg Tab) [facility] Last Admin: 02/05/21 08:11 Dose: 5 mg Documented by: Fluconazole (Fluconazole 100 Mg Tab) 50 mg PO Q24H [facility] Insulin Glargine (Insulin Glargine,Hum.Rec.Anlog 100 Unit/Ml 3 Ml Pen) [facility] Last Admin: 02/05/21 08:09 Dose: 16 units Documented by: Levothyroxine Sodium (Levothyroxine 25 Mcg Tab) 25 mcg PO ACBREAKFAST [facility] Last Admin: 02/05/21 08:11 Dose: 25 mcg Documented by: Metoprolol Succinate (Metoprolol Succinate 25 Mg Tab.Er) 25 mg PO [facility] Last Admin: 02/05/21 08:10 Dose: 25 mg Documented by: Metoprolol Succinate (Metoprolol Succinate 50 Mg Tab.Er) 50 mg PO [facility] Last Admin: 02/05/21 08:22 Dose: 50 mg Documented by: Multivitamins/Minerals (Lutein/Minerals/Vitamins A, C & E Tab) 1 each PO QPM [facility] Last Admin: 02/04/21 21:04 Dose: 1 each Documented by: Discontinued Medications Fluconazole (Fluconazole 100 Mg Tab) 100 mg PO ONETIME ONE Stop: 02/04/21 19:51 Last Admin: 02/04/21 21:05 Dose: 100 mg Documented by: Non-Formulary Medication (Lancets [Microlet]) 1 each ACBREAKFAST [facility] - Exam Quality Assessment: Urine Catheter (red urine with small clots noted). No: Supplemental Oxygen General: Alert, Oriented, Cooperative, No Acute Distress HEENT: Pupils Equal, Pupils Reactive, Mucous Membr. Moist/[place] Neck: Supple, Trachea Midline Lungs: Decreased Breath Sounds. No: Crackles, Rales, Wheezing Cardiovascular: Regular Rate, Regular Rhythm, No Murmurs GI/Abdominal Exam: Normal Bowel Sounds, Soft, Non-Tender, No Distention (Male) Exam: Deferred Back Exam: Normal Inspection, Full Range of Motion Extremities: Normal Inspection, Normal Range of Motion, Non-Tender, Normal Capillary Refill, Pedal Edema (+1 to LLE, Non-pitting RLE) Peripheral Pulses: 2+: Dorsalis Pedis (L), Dorsalis Pedis (R) Skin: Warm, Dry, Intact, Other (pallor) Neurological: No New Focal Deficit Psy/Mental Status: Alert, Normal Affect, Normal Mood - Patient Data Lab Results Last 24 hrs: Laboratory Results - last 24 hr 02/04/21 02/04/21 02/04/21 Range/Units 18:15 18:35 18:35 WBC 5.50 (5.00-10.00) 10^3/uL RBC 2.49 L (4.50-6.00) 10^6/uL Hgb 8.6 L (13.0-17.0) g/dL Hct 26.3 L (40.0-52.0) % MCV 105.6 H D (82.0-92.0) fL MCH 34.5 H (27.0-31.0) pg MCHC 32.7 (32.0-36.0) g/dL RDW 13.9 (11.5-14.5) % Plt Count 151 (150-400) 10^3/uL MPV 9.5 (7.4-10.4) fL Immature Gran % (Auto) 0.4 (0.0-5.0) % Neut % (Auto) 69.3 (50.0-70.0) % Lymph % (Auto) 18.0 L (20.0-40.0) % Ocean % (Auto) 7.1 (2.0-8.0) % Eos % (Auto) 4.5 H (1.0-3.0) % Baso % (Auto) 0.7 (0.0-1.0) % Neut # (Auto) 3.81 (2.50-7.00) 10^3/uL Lymph # (Auto) 0.99 L (1.00-4.00) 10^3/uL Ocean # (Auto) 0.39 (0.10-0.80) 10^3/uL Eos # (Auto) 0.25 (0.10-0.30) 10^3/uL Baso # (Auto) 0.04 (0.00-0.10) 10^3/uL Immature Gran # (Auto) 0.02 (0.00-0.50) 10^3/uL Anisocytosis 1+ slight Macrocytosis 1+ slight Ovalocytes Few Sodium 143 (136-145) mmol/L Potassium 4.5 (3.5-5.1) mmol/L Chloride 106 (98-107) mmol/L Carbon Dioxide 21.0 (21.0-32.0) mmol/L Anion Gap 20.5 H (5-15) mmol/L BUN 68 H* (7-18) mg/dL Creatinine 3.71 H (0.51-1.17) mg/dL Est Cr Clr Drug Dosing 13.06 mL/min Estimated GFR (MDRD) 15 mL/min Glucose 124 (70-140) mg/dL POC Glucose (70-140) mg/dL Calcium 8.8 (8.7-10.3) mg/dL Total Bilirubin 0.2 (0.2-1.0) mg/dL AST 20 (15-37) U/L ALT 24 (14-63) U/L Alkaline Phosphatase 106 (46-116) U/L Total Protein 6.8 (6.4-8.2) g/dL Albumin 3.26 L (3.40-5.00) g/dL SARS CoV-2 RNA Rapid ANGELINA Negative (NEGATIVE) 02/04/21 02/05/21 02/05/21 Range/Units 21:13 07:25 07:25 WBC 3.56 L (5.00-10.00) 10^3/uL RBC 2.15 L (4.50-6.00) 10^6/uL Hgb 7.2 L (13.0-17.0) g/dL Hct 22.5 L (40.0-52.0) % MCV 104.7 H (82.0-92.0) fL MCH 33.5 H (27.0-31.0) pg MCHC 32.0 (32.0-36.0) g/dL RDW 13.8 (11.5-14.5) % Plt Count 127 L (150-400) 10^3/uL MPV 9.9 (7.4-10.4) fL Immature Gran % (Auto) 0.3 (0.0-5.0) % Neut % (Auto) 60.9 (50.0-70.0) % Lymph % (Auto) 25.0 (20.0-40.0) % Ocean % (Auto) 7.6 (2.0-8.0) % Eos % (Auto) 5.9 H (1.0-3.0) % Baso % (Auto) 0.3 (0.0-1.0) % Neut # (Auto) 2.17 L (2.50-7.00) 10^3/uL Lymph # (Auto) 0.89 L (1.00-4.00) 10^3/uL Ocean # (Auto) 0.27 (0.10-0.80) 10^3/uL Eos # (Auto) 0.21 (0.10-0.30) 10^3/uL Baso # (Auto) 0.01 (0.00-0.10) 10^3/uL Immature Gran # (Auto) 0.01 (0.00-0.50) 10^3/uL Anisocytosis Macrocytosis Ovalocytes Sodium 146 H (136-145) mmol/L Potassium 4.6 (3.5-5.1) mmol/L Chloride 110 H (98-107) mmol/L Carbon Dioxide 24.0 (21.0-32.0) mmol/L Anion Gap 16.6 H (5-15) mmol/L BUN 66 H* (7-18) mg/dL Creatinine 3.67 H (0.51-1.17) mg/dL Est Cr Clr Drug Dosing 13.20 mL/min Estimated GFR (MDRD) 16 mL/min Glucose 89 (70-140) mg/dL POC Glucose 187 H (70-140) mg/dL Calcium 8.2 L (8.7-10.3) mg/dL Total Bilirubin (0.2-1.0) mg/dL AST (15-37) U/L ALT (14-63) U/L Alkaline Phosphatase (46-116) U/L Total Protein (6.4-8.2) g/dL Albumin (3.40-5.00) g/dL SARS CoV-2 RNA Rapid ANGELINA (NEGATIVE) Result Diagrams: 02/05/21 07:25 02/05/21 07:25 Sepsis Event Note - Evaluation Sepsis Screening Result: No Definite Risk - Focused Exam Vital Signs: Vital Signs Temp Pulse Pulse Resp BP BP Pulse Ox 02/05/21 08:22 85 137/64 02/05/21 08:10 85 137/64 02/05/21 07:00 97.3 F 75 18 119/53 L 95 02/05/21 03:00 97.0 F 71 20 133/57 L 93 L 02/04/21 22:50 96.0 F L 76 20 141/70 H 95 - Problem List Review Problem List Initiated/Reviewed/Updated: Yes - Plan Plan:: HPI summary: Todd is an 89yM patient who presented to [facility] yesterday afternoon for follow-up regarding balanitis, urinary retention and hematuria. Patient was hospitalized at [facility] from 01/29/21-01/30/21 for hematuria and urinary retention, he was discharged home with a urinary catheter and Hgb 7.9. In the clinic patient c/o increased penile swelling and inability to reduce the foreskin. Paraphimosis was reduced by Jana Brush APRN, DOCTOR OF [employer] with guidance from urology in clinic. Patient also c/o increased hematuria and clott ing. Denied fever, chills, flank pain. Initial fingerstick Hgb in clinic was 7.0, repeated and result was 8.3. Patient was directly admitted to [facility] for monitoring of Hgb. Initial Hgb last evening was 8.6 in hospital. Hospital course: 02/05/21: Patient reports feeling overall well, denies lightheadedness, dizziness. Hgb decreased to 7.2 this morning, WBC 3.56, Plt 127. Na 146, K 4.6, BUN 66, Creatinine 3.67 (at baseline), GFR 16. Red urine with small clots noted in shaw bag. Patient has upcoming appointments with Dr Sotelo at [facility] on 02/15 and urology follow-up for repeat cystoscopy on 02/21. Hospitalization problems and plan: # Anemia # Gross hematuria # Urinary retention - Recheck Hgb at 1400, will plan to infuse 1 unit PRBC if < 7.0 # Balanitis - Continue diflucan Chronic, stable conditions: # CAD s/p CABG x 3 - PCI of RCA 01/06, LHC 05/09, stable. Continue toprol XL. 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 # HLD - Continue lipitor - on QOD dosing due to muscle aches # Left carotid stenosis - 50-69% - due for repeat carotid US # CKD stage V - followed by nephrology; no uremic s/s currently # DM TII - controlled on tresiba 16 units daily (reduced from 22 units daily during recent hospitalization) # Hyperparathyroidism # Hypothyroidism - continue levothyroxine 25mg PO daily; TSH 2.93 on 09/11/20 # Hyperuricemia - on allopurinol - managed by nephrology # BPH - on proscar # 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 Recheck Hgb this afternoon at 1400 and will transfuse if < 7.0. Will plan to leave shaw in place upon discharge per CHELSEA Nunez.
[2021-02-05] MEDS ORDERED: atorvaSTATin 10 MG Tab PO SCH (18:00)
[2021-02-05] MEDS ORDERED: Allopurinol 100 MG Tab PO SCH (18:00)
[2021-02-05] MEDS ORDERED: Fluconazole 100 MG Tab PO SCH (20:00)
[2021-02-05] MEDS: Lutein/Minerals/Vitamins A, C & E Tab PO SCH (20:18)
[2021-02-06] MEDS: Levothyroxine 25 MCG Tab PO SCH ×2 (06:09→06:30)
[2021-02-06] MEDS: Insulin Glargine,Hum.Rec.Anlog 100 UNIT/ML 3 ML Pen SUBCUT SCH (08:13)
[2021-02-06] MEDS: Calcitriol 0.25 MCG Cap PO SCH (08:22)
[2021-02-06] MEDS: Bumetanide 1 MG Tab PO SCH (08:22)
[2021-02-06] MEDS: Metoprolol Succinate 50 MG Tab.ER PO SCH (08:22)
[2021-02-06] MEDS: Finasteride 5 MG Tab PO SCH (08:22)
[2021-02-06] MEDS: Metoprolol Succinate 25 MG Tab.ER PO SCH (08:22)
--- NOTE | 2021-02-06 10:36 | PCM.DCSUM1 ---
Discharge Summary - Hospital Course Free Text/Narrative:: Date of admission: 02/04/21 Date of discharge: 02/06/21 Admission diagnoses: # Anemia; chronic # Gross hematuria # Urinary retention # Balanitis Discharge diagnoses: # CAD s/p CABG x 3 - PCI of RCA 01/06, LHC 05/09, stable. Continue toprol XL. 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 # HLD - Continue lipitor - on QOD dosing due to muscle aches # Left carotid stenosis - 50-69% - due for repeat carotid US # CKD stage V - followed by nephrology; no uremic s/s currently # DM TII - controlled on tresiba 16 units daily (reduced from 22 units daily during recent hospitalization) # Hyperparathyroidism # Hypothyroidism - continue levothyroxine 25mg PO daily; TSH 2.93 on 09/11/20 # Hyperuricemia - on allopurinol - managed by nephrology # BPH - on proscar # 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 Patient was hospitalized at [facility] from 01/29/21-01/30/21 for hematuria and urinary retention, he was discharged home with a urinary catheter and Hgb 7.9. In the clinic patient c/o increased penile swelling and inability to reduce the foreskin. Paraphimosis was reduced by Jana Brush APRN, [employer] with guidance from urology in clinic. Patient also c/o increased hematuria and clotting. Denied fever, chills, flank pain. Initial fingerstick Hgb in clinic was 7.0, repeated and result was 8.3. Patient was directly admitted to [facility] for monitoring of Hgb. Initial Hgb last evening was 8.6 in hospital. Hospital course: 02/05/21: Patient reports feeling overall well, denies lightheadedness, dizziness. Hgb decreased to 7.2 this morning, WBC 3.56, Plt 127. Na 146, K 4.6, BUN 66, Creatinine 3.67 (at baseline), GFR 16. Red urine with small clots noted in shaw bag. Patient has upcoming appointments with Dr Sotelo at [facility] on 02/15 and urology follow-up for repeat cystoscopy on 02/21. 02/06/21: Patient denies complaints this morning, feels good after taking a shower. Urine remains red in color as prior, exam otherwise grossly unremarkable. Hgb yesterday afternoon improved to 7.4 and 7.5 this am. Plan to discharge patient home today as Hgb stable, patient asymptomatic. Catheter rather palliative, will leave in upon discharge. Discharge and follow-up recommendations: - Discharge to home with per self care - New medications at discharge: Ferrous sulfate 325mg PO M,W,F - Follow-up with Jana Brush APRN, CNP at [facility] on Thursday02/11/21 at 1:00. - Discharge Data Discharge Date: 02/06/21 Discharge Disposition: Home, Self-Care 01 Condition: Good - Referral to Home Health Primary Care Physician: Jana Brush NP - Patient Instructions Diet: Usual Diet as Tolerated Driving: Do Not Drive Showering/Bathing: May Shower - Discharge Plan *PRESCRIPTION DRUG MONITORING PROGRAM REVIEWED*: Not Applicable *COPY OF PRESCRIPTION DRUG MONITORING REPORT IN PATIENT ALEXANDRE: Not Applicable Home Medications: Home Meds Bilberry 100 mg PO BID 02/06/19 [History] Finasteride [Proscar] 5 mg PO QAM 02/06/19 [History] Metoprolol Succinate [Toprol XL 50mg] 50 mg PO QAM 02/06/19 [History] Metoprolol Succinate [Toprol XL] 25 mg PO QAM 02/06/19 [History] Multivit with Minerals/Lutein [Vision Plus Lutein Vitamin] 1 each PO QPM 02/06/19 [History] allopurinoL [Zyloprim] 100 mg PO DAILY@1800 02/06/19 [History] atorvaSTATin [Lipitor] 10 mg PO 1800 02/06/19 [History] calcitrioL [Rocaltrol] 0.25 mcg PO QAM 02/06/19 [History] Amoxicillin 2,000 mg PO ASDIRECTED PRN 01/24/20 [History] Bumetanide [Bumex] 1 mg PO BID 01/24/20 [History] Lancets [Microlet] 1 each [facility] ACBREAKFAST 01/24/20 [History] Levothyroxine 25 mcg PO ACBREAKFAST 01/24/20 [History] Insulin Degludec [Tresiba] 16 unit SQ ACBREAKFAST #0 01/29/21 [Rx] Clotrimazole [Clotrimazole 1%] 1 applic TOP BID 02/04/21 [History] Triamcinolone Acetonide [Triamcinolone Acetonide 0.1% Crm] 1 applic TOP BID PRN 02/04/21 [History] Ferrous Sulfate 325 mg PO WITHBREAKFAST tablet 02/06/21 [Rx] Oxygen Therapy Mode: Room Air Referrals: Jana Brush, [employer] [Primary Care Provider] - 02/11/21 1:00 pm - Discharge Summary/Plan Comment DC Time >30 min.: Yes Total # of Minutes for Discharge Time: 35 - General Info Date of Service: 02/06/21 Subjective Update: Patient offers no complaints this morning, states he feels good after having a shower today. Functional Status: Reports: Pain Controlled, Tolerating Diet, Ambulating, U rinating. Denies: New Symptoms - Review of Systems General: Reports: No Symptoms HEENT: Reports: Other (hx of macular degeneration) Pulmonary: Reports: No Symptoms Cardiovascular: Reports: Edema Gastrointestinal: Reports: No Symptoms Genitourinary: Reports: Frequency, Hematuria (chronic gross hematuria, shaw in place). Denies: Dysuria, Burning Musculoskeletal: Reports: No Symptoms Skin: Reports: No Symptoms Neurological: Reports: No Symptoms Psychiatric: Reports: No Symptoms - Patient Data Vitals - Most Recent: Last Vital Signs Temp 96.7 F L 02/06/21 06:38 Pulse 87 02/06/21 08:22 Resp 20 02/06/21 06:38 BP 139/78 02/06/21 08:22 Pulse Ox 98 02/06/21 06:38 Weight - Most Recent: 207 lb 4.8 oz I&O - Last 24 hours: Intake & Output 02/05/21 02/06/21 02/06/21 22:59 06:59 14:59 Intake Total 300 150 Output Total 700 1000 Balance -400 -850 Lab Results - Last 24 hrs: Laboratory Results - last 24 hr 02/05/21 02/05/21 02/06/21 Range/Units 13:59 17:43 07:16 Hgb 7.4 L 7.5 L (13.0-17.0) g/dL POC Glucose 78 (70-140) mg/dL 02/06/21 Range/Units 07:43 Hgb (13.0-17.0) g/dL POC Glucose 77 (70-140) mg/dL Med Orders - Current: Current Medications Acetaminophen (Acetaminophen 325 Mg Tab) 650 mg PO Q4H PRN PRN Reason: Pain (mild 1-3) Last Admin: 02/04/21 21:53 Dose: 650 mg Documented by: Allopurinol (Allopurinol 100 Mg Tab) 100 mg PO DAILY@1800 [facility] Last Admin: 02/05/21 18:23 Dose: 100 mg Documented by: Atorvastatin Calcium (Atorvastatin 10 Mg Tab) 10 mg PO 1800 [facility] Last Admin: 02/05/21 18:23 Dose: 10 mg Documented by: Bumetanide (Bumetanide 1 Mg Tab) 1 mg PO BID [facility] Last Admin: 02/06/21 08:22 Dose: 1 mg Documented by: Calcitriol (Calcitriol 0.25 Mcg Cap) [facility] Last Admin: 02/06/21 08:22 Dose: 0.25 mcg Documented by: Ferrous Sulfate (Ferrous Sulfate 325 Mg Tab) 325 mg PO WITHBREAKFAST [facility] Finasteride (Finasteride 5 Mg Tab) 5 mg PO QAM [facility] Last Admin: 02/06/21 08:22 Dose: 5 mg Documented by: Fluconazole (Fluconazole 100 Mg Tab) 50 mg PO Q24H [facility] Last Admin: 02/05/21 20:19 Dose: 50 mg Documented by: Insulin Glargine (Insulin Glargine,Hum.Rec.Anlog 100 Unit/Ml 3 Ml Pen) 16 unit SUBCUT ACBREAKFAST [facility] Last Admin: 02/06/21 08:13 Dose: 16 units Documented by: Levothyroxine Sodium (Levothyroxine 25 Mcg Tab) 25 mcg PO ACBREAKFAST [facility] Last Admin: 02/06/21 06:30 Dose: Not Given Documented by: Metoprolol Succinate (Metoprolol Succinate 25 Mg Tab.Er) [facility] Last Admin: 02/06/21 08:22 Dose: 25 mg Documented by: Metoprolol Succinate (Metoprolol Succinate 50 Mg Tab.Er) 50 mg PO QAM [facility] Last Admin: 02/06/21 08:22 Dose: 50 mg Documented by: Multivitamins/Minerals (Lutein/Minerals/Vitamins A, C & E Tab) 1 each PO QPM [facility] Last Admin: 02/05/21 20:18 Dose: 1 each Documented by: Discontinued Medications Fluconazole (Fluconazole 100 Mg Tab) 100 mg PO ONETIME ONE Stop: 02/04/21 19:51 Last Admin: 02/04/21 21:05 Dose: 100 mg Documented by: Non-Formulary Medication (Lancets [Microlet]) 1 each ACBREAKFAST [facility] - Exam Quality Assessment: Reports: Urine Catheter. Denies: Supplemental Oxygen General: Reports: Alert, Oriented, Cooperative, No Acute Distress HEENT: Reports: Pupils Equal, Mucous Membr. Moist/[place] Neck: Reports: Supple, Trachea Midline Lungs: Reports: Normal Respiratory Effort, Decreased Breath Sounds Cardiovascular: Reports: Regular Rate, Regular Rhythm, No Murmurs GI/Abdominal Exam: Normal Bowel Sounds, Soft, Non-Tender, No Distention (Male) Exam: Deferred Rectal (Males) Exam: Deferred Back Exam: Reports: Normal Inspection, Full Range of Motion Extremities: Normal Inspection, Normal Range of Motion, Non-Tender, Normal Capillary Refill, Pedal Edema (+1 LLE, [employer] RLE) Skin: Reports: Warm, Dry, Intact Neurological: Reports: No New Focal Deficit Psy/Mental Status: Reports: Alert, Normal Affect, Normal Mood
[2021-02-08] MEDS ORDERED: Ferrous Sulfate 325 MG Tab PO SCH (08:00)
== END 2021-02-06 13:55 | disposition home or self-care (01) ==
LOC: KA.MS 18:13
PROVIDERS: ADMIT Nurse Practitioner Family; ATTEND Student in an Organized Health Care Education/Training Program
DX: N48.1 Balanitis (principal); R33.9 Retention of urine, unspecified; R31.9 Hematuria, unspecified; I25.10 Atherosclerotic heart disease of native coronary artery without angina pectoris; I35.0 Nonrheumatic aortic (valve) stenosis; D49.519 Neoplasm of unspecified behavior of unspecified kidney; E78.5 Hyperlipidemia, unspecified; E11.22 Type 2 diabetes mellitus with diabetic chronic kidney disease; I65.22 Occlusion and stenosis of left carotid artery; N18.5 Chronic kidney disease, stage 5; E21.3 Hyperparathyroidism, unspecified; Z20.822 Contact with and (suspected) exposure to COVID-19; E03.9 Hypothyroidism, unspecified; E79.0 Hyperuricemia without signs of inflammatory arthritis and tophaceous disease; N40.0 Benign prostatic hyperplasia without lower urinary tract symptoms; I50.32 Chronic diastolic (congestive) heart failure; J44.9 Chronic obstructive pulmonary disease, unspecified; I13.2 Hypertensive heart and chronic kidney disease with heart failure and with stage 5 chronic kidney disease, or end stage renal disease; N47.2 Paraphimosis; E66.9 Obesity, unspecified; Z68.31 Body mass index [BMI] 31.0-31.9, adult; D64.9 Anemia, unspecified; Z79.890 Hormone replacement therapy; Z79.899 Other long term (current) drug therapy; Z88.8 Allergy status to other drugs, medicaments and biological substances; Z95.1 Presence of aortocoronary bypass graft
CPT/HCPCS: 36415; 80048; 80053; 82947; 85018; 85025; A9270; G0378; G0379; U0002

== ENCOUNTER 2021-02-07 11:26 | Emergency (ER) | payer MEDICARE, BC ==
--- NOTE | 2021-02-07 11:56 | EDM.PDOC ---
ED HPI GENERAL MEDICAL PROBLEM - General Chief Complaint: General Stated Complaint: CATHETER ISSUES Time Seen by Provider: 02/07/21 12:01 Source of Information: Reports: Patient, Family History Limitations: Reports: No Limitations - History of Present Illness INITIAL COMMENTS - FREE TEXT/NARRATIVE: Noah 89-year-old male, presents with obstructed Metcalf catheter. Had just been discharged from the hospital yesterday and is started experiencing slowing of his urine flow last night. Nobody available in [place] to be seen so they made an appointment but was not able to be seen until mid afternoon here in [place]. They decided to present to the emergency department to get relief. No other symptoms or complaints have occurred since then. Attempted to have nursing staff at [facility] who was unable to successfully irrigate. Onset: Today - Related Data Allergies Allergy/AdvReac Type Severity Reaction Status Date / Time losartan Allergy Mild Cough Verified 02/07/21 11:37 camphor* Allergy Other Verified 02/07/21 11:37 [From Abimael Original] lisinopril Allergy Rash Verified 02/07/21 11:37 menthol [From Sarna Original] Allergy Other Verified 02/07/21 11:37 Home Meds: Home Meds Bilberry 100 mg PO BID 02/06/19 [History] Finasteride [Proscar] 5 mg PO QAM 02/06/19 [History] Metoprolol Succinate [Toprol XL 50mg] 50 mg PO QAM 02/06/19 [History] Metoprolol Succinate [Toprol XL] 25 mg PO QAM 02/06/19 [History] Multivit with Minerals/Lutein [Vision Plus Lutein Vitamin] 1 each PO QPM 02/06/19 [History] allopurinoL [Zyloprim] 100 mg PO DAILY@1800 02/06/19 [History] atorvaSTATin [Lipitor] 10 mg PO 1800 02/06/19 [History] calcitrioL [Rocaltrol] 0.25 mcg PO QAM 02/06/19 [History] Amoxicillin 2,000 mg PO ASDIRECTED PRN 01/24/20 [History] Bumetanide [Bumex] 1 mg PO BID 01/24/20 [History] Lancets [Microlet] 1 each MC ACBREAKFAST 01/24/20 [History] Levothyroxine 25 mcg PO ACBREAKFAST 10/06/20 [History] Insulin Degludec [Tresiba] 16 unit SQ ACBREAKFAST #0 01/29/21 [Rx] Clotrimazole [Clotrimazole 1%] 1 applic TOP BID 02/04/21 [History] Triamcinolone Acetonide [Triamcinolone Acetonide 0.1% Crm] 1 applic TOP BID PRN 02/04/21 [History] Ferrous Sulfate 325 mg PO WITHBREAKFAST tablet 02/06/21 [Rx] Past Medical History - Past Health History Medical/Surgical History: Denies Medical/Surgical History HEENT History: Reports: Hard of Hearing, Impaired Vision, Macular Degeneration Cardiovascular History: Reports: Bypass, CAD, Heart Failure, Hypertension, Stents, Other (See Below) Other Cardiovascular History: valve replaced Feb 2019. aortic stenosis. stenosis of left carotid artery. severe aortic valve stenosis Respiratory History: Reports: None Gastrointestinal History: Reports: None Genitourinary History: Reports: Chronic Renal Insuffiency, Renal Disease, Retention, Urinary, Other (See Below) Other Genitourinary History: hematuria. CKD stage 4, GFR 15-29. mass of right kidney Musculoskeletal History: Reports: Arthritis, Gout Neurological History: Reports: None Psychiatric History: Reports: None Endocrine/Metabolic History: Reports: Diabetes, Type II, Hyperparathyroidism, Hypothyroidism Other Endocrine/Metabolic History: hyperkalemia. fluid overload. secondary hyperparathyroidism of renal origin Hematologic History: Reports: Anemia Immunologic History: Reports: None Oncologic (Cancer) History: Reports: Malignant Melanoma Dermatologic History: Reports: Melanoma - Infectious Disease History Infectious Disease History: Reports: Mumps, Pertussis (Whooping Cough) - Past Surgical History Head Surgeries/Procedures: Reports: None HEENT Surgical History: Reports: None Cardiovascular Surgical History: Reports: Coronary Artery Bypass, Valve Repl acement, Other (See Below) Other Cardiovascular Surgeries/Procedures: 3 stents done Jan 05, 2019 in [place] Respiratory Surgical History: Reports: None GI Surgical History: Reports: Colonoscopy Male Surgical History: Reports: Other (See Below) Endocrine Surgical History: Reports: None Neurological Surgical History: Reports: Lumbar Spine Musculoskeletal Surgical History: Reports: Knee Replacement, Shoulder Surgery, Other (See Below) Other Musculoskeletal Surgeries/Procedures:: Back surgery (bone grafting from right leg) in 1949 Oncologic Surgical History: Reports: None Dermatological Surgical History: Reports: Skin Biopsy Social & Family History - Family History Family Medical History: No Pertinent Family History - Caffeine Use Caffeine Use: Reports: Tea Other Caffeine Use: occasional pop, rare coffee - Living Situation & Occupation Living situation: Reports: Occupation: Retired ED ROS GENERAL - Review of Systems Review Of Systems: Comprehensive ROS is negative, except as noted in HPI. ED EXAM, GENERAL - Physical Exam Exam: See Below Free Text/Narrative:: Alert oriented with mild pressure sensation to the urinary bladder. Exam is benign other than pressure over the urinary bladder with a blood-tinged discharge to his Metcalf as well as catheter and leg bag. No other detailed examination performed as he was quite comfortable laying supine in the cart while I irrigated and discussed with his the irrigation process to remove clots. There is blood-tinged discharge in the Metcalf with a long stringy clot in the tubing to the leg bag. ED GENERAL MEDICAL PROCEDURES - Additional/Other Procedure(s) Other (Free Text) Procedure(s): Irrigation per normal saline with 400 mL. This was flowed in and withdrawn in a shaking fashion of the fluids breaking up the clot nicely. I was also able to take a 20 cc syringe with the same solution kink off the Metcalf catheter, and flush the drainage tubing successfully for the removal of the majority of the clot in that. Everything was done in a as clean fashion as possible next to sterile in nature. I was then able to reconnect and readvise with education to his draining all urine and discharging with no sequela or questions. Course - Vital Signs Last Recorded V/S: Last Vital Signs Temp 97.2 F 02/07/21 11:36 Pulse 78 02/07/21 11:36 Resp 20 02/07/21 11:36 BP 117/72 02/07/21 11:36 Pulse Ox 98 02/07/21 11:36 - Re-Assessments/Exams Free Text/Narrative Re-Assessment/Exam: 02/07/21 17:22 Successfully irrigated with 400 mL saline with good break-up of the clot in the return of light-colored blood-tinged urine. This was all demonstrated to Noah's as well to which she stated that she would hopefully be able to do this herself as she does have all the supplies that she was sent home with at discharge time. We have now added an additional syringe showing her how to flush the bag tubing as well as the Metcalf itself. Departure - Departure Time of Disposition: 13:23 Disposition: Home, Self-Care 01 Condition: Fair Clinical Impression: Acute retention of urine Obstructed Metcalf catheter Qualifiers: Encounter type: sequela Qualified Code(s): T83.091S - Other mechanical complication of indwelling urethral catheter, sequela Hematuria Qualifiers: Hematuria type: gross Qualified Code(s): R31.0 - Gross hematuria - Discharge Information *PRESCRIPTION DRUG MONITORING PROGRAM REVIEWED*: Not Applicable *COPY OF PRESCRIPTION DRUG MONITORING REPORT IN PATIENT ALEXANDRE: Not Applicable Instructions: Hematuria, Adult Referrals: Jana Brush NP [Primary Care Provider] - Forms: ED Department Discharge Additional Instructions: Metcalf catheter was plugged and successfully irrigated as your participated in to learn more details. Continue all your medications as directed. Follow-up with your clinic tomorrow as directed for repeat on your blood work. Make sure you flush the catheter/irrigate the catheter at least 2-3 times a day for the next 24 hours to avoid any of the clot remnants that are left from congregating on the catheter. Contact your clinic or return to the emergency department as needed Sepsis Event Note (ED) - Focused Exam Vital Signs: Vital Signs Temp Pulse Resp BP Pulse Ox 02/07/21 11:36 97.2 F 78 20 117/72 98 - Problem List & Annotations (1) Obstructed Metcalf catheter SNOMED Code(s): 934497822 Code(s): T83.091A - [facility] COMPL OF INDWELLING URETHRAL CATHETER, INIT Status: Acute Priority: High Qualifiers: Encounter type: sequela Qualified Code(s): T83.091S - Other mechanical complication of indwelling urethral catheter, sequela (2) Urinary retention SNOMED Code(s): 279023515 Code(s): R33.9 - RETENTION OF URINE, UNSPECIFIED Status: Acute Priority: High (3) Hematuria SNOMED Code(s): 21943167 Code(s): R31.9 - HEMATURIA, UNSPECIFIED Status: Acute Priority: High Qualifiers: Hematuria type: gross Qualified Code(s): R31.0 - Gross hematuria - Problem List Review Problem List Initiated/Reviewed/Updated: Yes - Assessment/Plan Plan: Metcalf catheter was plugged and successfully irrigated as your participated in to learn more details. Continue all your medications as directed. Follow-up with your clinic tomorrow as directed for repeat on your blood work. Make sure you flush the catheter/irrigate the catheter at least 2-3 times a day for the next 24 hours to avoid any of the clot remnants that are left from congregating on the catheter. Contact your clinic or return to the emergency department as needed
== END 2021-02-07 13:35 | disposition home or self-care (01) ==
LOC: KA.ED 11:26
DX: T83.091A Other mechanical complication of indwelling urethral catheter, initial encounter (principal); R33.9 Retention of urine, unspecified; R31.0 Gross hematuria; I13.0 Hypertensive heart and chronic kidney disease with heart failure and stage 1 through stage 4 chronic kidney disease, or unspecified chronic kidney disease; E11.22 Type 2 diabetes mellitus with diabetic chronic kidney disease; N18.4 Chronic kidney disease, stage 4 (severe); I50.9 Heart failure, unspecified; E03.9 Hypothyroidism, unspecified; I25.10 Atherosclerotic heart disease of native coronary artery without angina pectoris; Z95.1 Presence of aortocoronary bypass graft; Z88.8 Allergy status to other drugs, medicaments and biological substances
CPT/HCPCS: 99283